=== PATIENT | male | born 1955 | race Caucasian/White ===

== ENCOUNTER 2017-04-17 11:00 | Inpatient (IN) | payer BC ==
[2017-04-17] MEDS ORDERED: DIAZEPAM 5 MG/ML 2 ML SYRINGE IVP STA ×2 (11:03→12:35)
[2017-04-17] MEDS ORDERED: SODIUM CHLORIDE 0.9% 500 ML IV STA (11:03)
[2017-04-17] MEDS ORDERED: ONDANSETRON 4 MG/2 ML VIAL IVP STA (11:03)
--- NOTE | 2017-04-17 11:08 | ED ---
General Adult HPI - General Stated complaint: Poss Stroke Time Seen by Provider: 04/17/17 11:00 Source: RN notes reviewed - History of Present Illness Initial comments: This is a 62-year-old male who presents to the emergency department complaining of driving his car and all of a sudden getting severely dizzy and diaphoretic. When EMS arrived on the scene they thought he had some left-sided facial droop and left-sided director card weakness. That is since resolved. Patient only complaint currently is severe dizziness and sweating. Patient denies any palpitations patient denies any chest pain patient denies difficult breathing [place] of breath. Patient denies any headache per patient denies any numbness weakness. Patient denies abdominal pain patient denies nausea vomiting or diarrhea. Patient denies any recent injury or trauma. - Related Data Home Medications Medication Instructions Recorded Confirmed Aspirin 81 mg PO DAILY 08/29/16 04/17/17 Linagliptin [Tradjenta] 5 mg PO DAILY 08/29/16 04/17/17 Tamsulosin [Flomax] 0.4 mg PO BID 08/29/16 04/17/17 Atorvastatin [Lipitor] 80 mg PO HS 04/17/17 04/17/17 Finasteride [Proscar] 5 mg PO DAILY 04/17/17 04/17/17 Lisinopril [Zestril] 2.5 mg PO DAILY 04/17/17 04/17/17 Prasugrel [Effient] 10 mg PO DAILY 04/17/17 04/17/17 Previous Rx's Medication Instructions Recorded Metoprolol Tartrate [Lopressor] 25 mg PO BID #60 tab 09/03/16 Nitroglycerin Sl Tabs [Nitrostat] 0.4 mg SUBLINGUAL Q5M PRN #25 tab 09/03/16 Allergies Allergy/AdvReac Type Severity Reaction Status Date / Time No Known Allergies Allergy Verified 04/17/17 12:36 Review of Systems ROS Statement: Those systems with pertinent positive or pertinent negative responses have been documented in the HPI. ROS Other: All systems not noted in ROS Statement are negative. Past Medical History Past Medical History: Diabetes Mellitus, Hyperlipidemia, Hypertension History of Any Multi-Drug Resistant Organisms: None Reported Additional Past Surgical History / Comment(s): sewed right middle finger tip Past Anesthesia/Blood Transfusion Reactions: No Reported Reaction Smoking Status: Current every day smoker - Past Family History Mother Family Medical History: Diabetes Mellitus, Hypertension Additional Family Medical History / Comment(s): varicose veins Father Family Medical History: Hyperlipidemia, Hypertension Additional Family Medical History / Comment(s): enlarged heart with leaky valve General Exam - General Exam Comments Initial Comments: GENERAL: Patient is well-developed and well-nourished. Patient is nontoxic and well- hydrated and is in moderate distress. Patient is diaphoretic ENT: Neck is soft and supple. No significant lymphadenopathy is noted. Oropharynx is clear. Moist mucous membranes. Neck has full range of motion without eliciting any pain. EYES: The sclera were anicteric and conjunctiva were pink and moist. Extraocular movements were intact and pupils were equal round and reactive to light. Eyelids were unremarkable. Patient has nystagmus. PULMONARY: Unlabored respirations. Good breath sounds bilaterally. No audible rales rhonchi or wheezing was noted. CARDIOVASCULAR: There is a regular rate and rhythm without any murmurs gallops or rubs. ABDOMEN: Soft and nontender with normal bowel sounds. No palpable organomegaly was noted. There is no palpable pulsatile mass. SKIN: Skin is clear with no lesions or rashes and otherwise unremarkable. NEUROLOGIC: Patient is alert and oriented x3. Cranial nerves II through XII are grossly intact. Motor and sensory are also intact. Normal speech, volume and content. Symmetrical smile. [id number] testing bilaterally is normal. MUSCULOSKELETAL: Normal extremities with adequate strength and full range of motion. No lower extremity swelling or edema. No calf tenderness. LYMPHATICS: No significant lymphadenopathy is noted PSYCHIATRIC: Normal psychiatric evaluation. Normal interpersonal interactions appears functionally intact in deals appropriately with others. No signs of depression. No signs of anxiety. Course Vital Signs 04/17/17 04/17/17 04/17/17 11:02 11:17 11:32 Temperature 98 F Pulse Rate 70 66 66 Respiratory 24 20 20 Rate Blood Pressure 135/82 118/69 135/78 O2 Sat by Pulse 98 98 98 Oximetry 04/17/17 04/17/17 04/17/17 11:47 12:00 13:45 Temperature Pulse Rate 68 65 61 Respiratory 20 20 20 Rate Blood Pressure 132/83 125/73 O2 Sat by Pulse 98 98 100 Oximetry Medical Decision Making - Medical Decision Making EKG shows normal sinus rhythm at 74 bpm MN interval is 170 QRS is 90 QT intervals 468 QTC is 519. Patient's EKG shows no ST segment elevation or depression or T wave abnormalities are noted. I spoke with the neuro interventional states he wanted the patient to received Lipitor 80 aspirin and have a CTA. The neuro interventional stated that this patient was not a TPA candidate CT of the brain showed a possible area of low attenuation within the maria elena and cerebellar peduncle on the right but he also noted could be artifact. CTA showed stenosis of the right internal carotid artery due to plaque nothing on the left and no abnormality seen in the brain. I spoke with the neuro interventional states after this was done and we admitted the patient and consult neurology. - Lab Data Result diagrams: 04/17/17 11:25 04/17/17 11:25 Lab Results 04/17/17 04/17/17 04/17/17 Range/Units 11:04 11:25 11:25 WBC 9.2 (3.8-10.6) k/uL RBC 4.74 (4.30-5.90) m/uL Hgb 14.4 (13.0-17.5) gm/dL Hct 41.1 (39.0-53.0) % MCV 86.6 (80.0-100.0) fL MCH 30.5 (25.0-35.0) pg MCHC 35.2 (31.0-37.0) g/dL RDW 13.1 (11.5-15.5) % Plt Count 343 (150-450) k/uL Neutrophils % 77 % Lymphocytes % 17 % Monocytes % 3 % Eosinophils % 1 % Basophils % 0 % Neutrophils # 7.1 (1.3-7.7) k/uL Lymphocytes # 1.6 (1.0-4.8) k/uL Monocytes # 0.3 (0-1.0) k/uL Eosinophils # 0.1 (0-0.7) k/uL Basophils # 0.0 (0-0.2) k/uL PT (9.0-12.0) sec INR (<1.1) APTT (22.0-30.0) sec Sodium (137-145) mmol/L Potassium (3.5-5.1) mmol/L Chloride (98-107) mmol/L Carbon Dioxide (22-30) mmol/L Anion Gap mmol/L BUN (9-20) mg/dL Creatinine (0.66-1.25) mg/dL Est GFR (MDRD) Af Amer (>60 ml/min/1.73 sqM) Est GFR (MDRD) Non-Af (>60 ml/min/1.73 sqM) Glucose (74-99) mg/dL POC Glucose (mg/dL) 195 H (75-99) mg/dL POC Glu Thermal Spray Operator ID Daniele Anguiano Calcium (8.4-10.2) mg/dL Total Bilirubin (0.2-1.3) mg/dL AST (17-59) U/L ALT (21-72) U/L Alkaline Phosphatase (38-126) U/L Total Creatine Kinase 121 (55-170) U/L CK-MB (CK-2) 2.2 (0.0-2.4) ng/mL CK-MB (CK-2) Rel Index 1.8 Troponin I <0.012 (0.000-0.034) ng/mL Total Protein (6.3-8.2) g/dL Albumin (3.5-5.0) g/dL 04/17/17 04/17/17 Range/Units 11:25 11:25 WBC (3.8-10.6) k/uL RBC (4.30-5.90) m/uL Hgb (13.0-17.5) gm/dL Hct (39.0-53.0) % MCV (80.0-100.0) fL MCH (25.0-35.0) pg MCHC (31.0-37.0) g/dL RDW (11.5-15.5) % Plt Count (150-450) k/uL Neutrophils % % Lymphocytes % % Monocytes % % Eosinophils % % Basophils % % Neutrophils # (1.3-7.7) k/uL Lymphocytes # (1.0-4.8) k/uL Monocytes # (0-1.0) k/uL Eosinophils # (0-0.7) k/uL Basophils # (0-0.2) k/uL PT 11.1 (9.0-12.0) sec INR 1.1 (<1.1) APTT 22.3 (22.0-30.0) sec Sodium 140 (137-145) mmol/L Potassium 3.7 (3.5-5.1) mmol/L Chloride 111 H (98-107) mmol/L Carbon Dioxide 17 L (22-30) mmol/L Anion Gap 12 mmol/L BUN 28 H (9-20) mg/dL Creatinine 1.38 H (0.66-1.25) mg/dL Est GFR (MDRD) Af Amer >60 (>60 ml/min/1.73 sqM) Est GFR (MDRD) Non-Af 52 (>60 ml/min/1.73 sqM) Glucose 213 H (74-99) mg/dL POC Glucose (mg/dL) (75-99) mg/dL POC Glu Thermal Spray Operator ID Calcium 9.5 (8.4-10.2) mg/dL Total Bilirubin 0.8 (0.2-1.3) mg/dL AST 29 (17-59) U/L ALT 38 (21-72) U/L Alkaline Phosphatase 200 H (38-126) U/L Total Creatine Kinase (55-170) U/L CK-MB (CK-2) (0.0-2.4) ng/mL CK-MB (CK-2) Rel Index Troponin I (0.000-0.034) ng/mL Total Protein 7.1 (6.3-8.2) g/dL Albumin 3.7 (3.5-5.0) g/dL Disposition Clinical Impression: CVA (cerebral vascular accident), Vertigo Disposition: ADMITTED IP TO THIS HOSP Referrals: Shahla Kiser DO [Primary Care Provider] - 1-2 days Time of Disposition: 14:36
[2017-04-17 11:14] LABS: Glucose,Whole Blood 195 mg/dL (75-99)
--- NOTE | 2017-04-17 11:32 | CT ---
EXAMINATION TYPE: CT brain wo con for TPA DATE OF EXAM: 04/17/2017 COMPARISON: NONE HISTORY: Extreme dizziness and diaphoretic CT DLP: 1054.2 mGycm Automated exposure control for dose reduction was used. FINDINGS: There is no acute intracranial hemorrhage, mass effect, or midline shift identified. The ventricles and sulci are within normal limits in size. Some low-attenuation is suspected within the brainstem at the level of the right maria elena and possibly cerebral peduncle. Cerebral vascular calcifications are pre sent. White matter demyelination changes are present. The globes are intact and the visualized sinuse s are clear. IMPRESSION: No acute intracranial hemorrhage, mass effect, or midline shift is seen. Possible chronic small vesse l ischemia, age related atrophy Low-attenuation within the maria elena and cerebral peduncle on the right co uld be artifactual, brain MRI could be for better evaluation.
[2017-04-17] MEDS ORDERED: MECLIZINE 25 MG TAB PO STA (11:53)
[2017-04-17 11:55] LABS: Basophils % (A) 0 %; CH 30.4; CHCM 35.2; Eosinophils # (A) 0.1 k/uL (0-0.7); Eosinophils % (A) 1 %; HCT 41.1 % (39.0-53.0); HDW 2.72; HGB 14.4 gm/dL (13.0-17.5); Luc # (Auto) 0.16; Luc % (Auto) 2; Lymphocytes # (A) 1.6 k/uL (1.0-4.8); Lymphocytes % (A) 17 %; MCH 30.5 pg (25.0-35.0); MCHC 35.2 g/dL (31.0-37.0); MCV 86.6 fL (80.0-100.0); Mean Platelet Volume 7.4; Monocytes # (A) 0.3 k/uL (0-1.0); Monocytes % (A) 3 %; Neutrophils # (A) 7.1 k/uL (1.3-7.7); Neutrophils % (A) 77 %; RBC 4.74 m/uL (4.30-5.90); RDW 13.1 % (11.5-15.5); WBC 9.2 k/uL (3.8-10.6); WBC (Perox) 9.52
--- NOTE | 2017-04-17 12:02 | XR ---
EXAMINATION TYPE: XR chest 2V DATE OF EXAM: 04/17/2017 COMPARISON: Prior chest x-ray 08/29/2016 HISTORY: Altered mental status, nausea and vomiting TECHNIQUE: Frontal and lateral views of the chest are obtained on 4 images. FINDINGS: There is no focal air space opacity, pleural effusion, or pneumothorax seen. Prominent louie ng volume could be indicative of COPD. The aorta is dense. The cardiac silhouette size is stable and enlarged. There are overlying cardiac leads. The osseous structures are intact. IMPRESSION: No acute cardiopulmonary process.
[2017-04-17] MEDS ORDERED: ATORVASTATIN 80 MG TAB PO STA (12:05)
[2017-04-17] MEDS ORDERED: ASPIRIN 325 MG TAB PO STA (12:05)
[2017-04-17] MEDS ORDERED: RX INFO: IV CONTRAST WAS GIVEN 1 EACH MISC MISCELLANE PRN (12:05)
[2017-04-17 12:12] LABS: ALT 38 U/L (21-72); AST 29 U/L (17-59); Alkaline Phosphatase 200 U/L (38-126); Anion Gap 12 mmol/L; Blood Urea Nitrogen 28 mg/dL (9-20); Calcium 9.5 mg/dL (8.4-10.2); Carbon Dioxide 17 mmol/L (22-30); Chloride 111 mmol/L (98-107); Creatine Kinase 121 U/L (55-170); Glucose 213 mg/dL (74-99); Non-African American GFR(MDRD) 52 (>60 ml/min/1.73 sqM); Potassium 3.7 mmol/L (3.5-5.1); Sodium 140 mmol/L (137-145); Total Bilirubin 0.8 mg/dL (0.2-1.3); Total Protein 7.1 g/dL (6.3-8.2)
[2017-04-17 12:24] LABS: Creatine Kinase MB 2.2 ng/mL (0.0-2.4); Troponin I <0.012 ng/mL (0.000-0.034)
[2017-04-17 12:25] LABS: INR 1.1 (<1.1); Partial Thromboplastin Time 22.3 sec (22.0-30.0); Prothrombin Time 11.1 sec (9.0-12.0)
[2017-04-17] MEDS ORDERED: METOCLOPRAMIDE 5 MG/ML 2 ML VIAL IVP STA (12:35)
--- NOTE | 2017-04-17 14:24 | CT ---
EXAMINATION TYPE: CT angio head neck DATE OF EXAM: 04/17/2017 1:57 PM COMPARISON: NONE HISTORY: Extreme dizziness CT DLP: 581.2 mGycm Automated exposure control for dose reduction was used. TECHNIQUE: Performed with IV Contrast, patient injected with 65 mL of Visipaque 320. There are 3-D post processed images.. FINDINGS: There is arterial flow in the common internal and external carotid arteries bilaterally. There is art erial flow in both vertebral arteries. Left vertebral artery is larger than the right. There is some plaque formation at the left carotid artery bifurcation with luminal narrowing up to 50% of the proxi mal left internal carotid artery. There is tortuosity of the right internal carotid artery. I see no evidence of hemodynamically significant stenosis on the right side. There is some kinking of the redu ndant right internal carotid artery. There is no evidence of carotid dissection. There is arterial flow in the vertebrobasilar artery system. The basilar artery fills mostly from the left side. There is arterial flow in the anterior middle and posterior cerebral arteries. There is no evidence o f aneurysm or neovascularity. There is normal contrast opacification of the venous sinuses. 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 THERE IS REDUNDANT PROXIMAL RIGHT INTERNAL CAROTID ARTERY WITHOUT EVIDENCE OF SIGNIFICANT STENOS IS. NO ANGIOGRAPHIC ABNORMALITY SEEN WITHIN THE BRAIN.
[2017-04-17] MEDS ORDERED: DIAZEPAM 5 MG/ML 2 ML SYRINGE IVP PRN (14:42)
[2017-04-17] MEDS ORDERED: MECLIZINE 25 MG TAB PO PRN ×3 (14:47→19:58)
[2017-04-17 16:18] VITALS: BMI 38.7
[2017-04-17] MEDS ORDERED: NITROGLYCERIN SL TABS 0.4 MG TAB SUBLINGUAL PRN (16:42)
[2017-04-17] MEDS ORDERED: LORazepam 2 MG/ML SYRINGE IV PRN (16:45)
[2017-04-17] MEDS ORDERED: TEMAZEPAM 15 MG CAP PO PRN (16:48)
[2017-04-17] MEDS ORDERED: HYDROcodone/APAP 5-325MG 1 EACH TAB PO PRN (16:48)
[2017-04-17 17:12] LABS: Glucose,Whole Blood 155 mg/dL (75-99)
[2017-04-17] MEDS: METOCLOPRAMIDE 5 MG/ML 2 ML VIAL IVP SCH (18:51)
--- NOTE | 2017-04-17 19:58 | P.CNNES ---
History of Present Illness Consult date: 04/17/17 Reason for Consult: Patient admitted with severe dizziness and vertigo and possible stroke. History of Present Illness: This patient is a 62-year-old right-handed white male was in his usual state of health early this morning. Patient states he was up this morning and it checked his blood sugar this morning and was noted to be 135. He is a diabetic and normally takes his medications for treatment of this condition. Patient was feeling fine this morning and decided to go with his to visit a state park. He was driving at the time and apparently suddenly developed severe vertigo and dizziness. He became severely diaphoretic. He was able to pull off of the road and fortunately his was there. She used her cell phone and called for EMS. When EMS arrived they saw the patient is having significant diaphoresis and questionable left-sided facial droop. He was brought into the emergency room where he was seen in the ER by Dr. Borja. He did not appear to have any facial droop at the time. He was sent for an immediate computed tomography scan of the brain which was reported to be negative for any acute stroke or hemorrhage. There was an area of low attenuation in the maria elena and the cerebral peduncle suggesting possibility of stroke. MRI of the brain was recommended. Patient also underwent a CTA angiogram which revealed a long segment of 50% stenosis of the proximal left internal carotid artery. The patient was evaluated in the ER by the neuro interventional group at [facility]. The neuro interventional is suggested to start the patient on Lipitor 80 mg with aspirin. The neuro interventional is did not recommend tPA for this candidate. They had reviewed this CT of the brain as well as a CTA angiogram results. They recommended admission to the hospital for further management. The patient states that he does have a history of motion sickness as a child. He has never had this acute vertigo however at any recent time. He states that the whole world seems to spin around him. He becomes nauseated and did vomit at least 3 times in route to the emergency room. As noted his computed tomography scan reveals a questionable area in the maria elena and he is scheduled for MRI of the brain tomorrow for further evaluation. The patient states he is still very much nauseated. Any quick movements of the head will cause him to become more symptomatic with dizziness. He is noted on examination at his bedside today as having horizontal nystagmus to the left. His clinical history suggests possibility of severe acute labyrinthitis which will need further evaluation. The patient states that he was recently diagnosed with diabetes about 6 months ago. He also had to have a cardiac stent placement about 6 months ago and is taking Effient on a regular basis for this stent. During this episode of diaphoresis today he did not experience any chest pain or angina. He has no previous history of TIA or stroke. He is now been admitted and neurology has been consulted for further evaluation and recommendations. Review of Systems Constitutional: Reports sweats, Denies chills, Denies fever Eyes: denies blurred vision, denies pain Ears, nose, mouth and throat: Reports vertigo, Denies headache, Denies sore throat Cardiovascular: Denies chest pain, Denies shortness of breath Respiratory: Denies cough Gastrointestinal: Denies abdominal pain, Denies diarrhea, Denies nausea, Denies vomiting Musculoskeletal: Denies myalgias Integumentary: Denies pruritus, Denies rash Neurological: Reports balance difficulties, Reports gait dysfunction, Reports vertigo, Denies numbness, Denies weakness Psychiatric: Denies anxiety, Denies depression Endocrine: Denies fatigue, Denies weight change Past Medical History Past Medical History: Diabetes Mellitus, Hyperlipidemia, Hypertension, Prostate Disorder, Renal Disease, Sleep Apnea/CPAP/BIPAP History of Any Multi-Drug Resistant Organisms: None Reported Past Surgical History: Heart Catheterization With Stent Additional Past Surgical History / Comment(s): sewed right middle finger tip Past Anesthesia/Blood Transfusion Reactions: No Reported Reaction Date of Last Stent Placement:: 09-02-16 Past Psychological History: No Psychological Hx Reported Smoking Status: Former smoker Past Alcohol Use History: None Reported Past Drug Use History: None Reported - Past Family History Mother Family Medical History: Diabetes Mellitus, Hypertension Additional Family Medical History / Comment(s): varicose veins Father Family Medical History: Hyperlipidemia, Hypertension Additional Family Medical History / Comment(s): enlarged heart with leaky valve Medications and Allergies Home Medications Medication Instructions Recorded Confirmed Type Aspirin 81 mg PO DAILY 08/29/16 04/17/17 History Linagliptin [Tradjenta] 5 mg PO DAILY 08/29/16 04/17/17 History Tamsulosin [Flomax] 0.4 mg PO BID 08/29/16 04/17/17 History Atorvastatin [Lipitor] 80 mg PO HS 04/17/17 04/17/17 History Finasteride [Proscar] 5 mg PO DAILY 04/17/17 04/17/17 History Lisinopril [Zestril] 2.5 mg PO DAILY 04/17/17 04/17/17 History Prasugrel [Effient] 10 mg PO DAILY 04/17/17 04/17/17 History Allergies Allergy/AdvReac Type Severity Reaction Status Date / Time No Known Allergies Allergy Verified 04/17/17 12:36 Physical Examination - Vital Signs Vital Signs: Vital Signs Temp Pulse Pulse Resp BP BP Pulse Ox 04/17/17 16:06 98.9 F 70 20 163/89 99 04/17/17 16:00 70 18 04/17/17 15:54 98.2 F 70 20 163/89 99 04/17/17 15:15 97.8 F 70 20 160/78 98 04/17/17 14:00 70 20 133/70 98 04/17/17 13:45 61 20 100 04/17/17 13:00 68 20 136/68 98 04/17/17 12:00 65 20 125/73 98 04/17/17 11:47 68 20 132/83 98 04/17/17 11:32 66 20 135/78 98 04/17/17 11:17 98 F 66 20 118/69 98 04/17/17 11:02 70 24 135/82 98 Intake and Output 04/17/17 04/17/17 04/17/17 06:59 14:59 22:59 Output Total 20 Balance -20 Output: Emesis 20 Other: Voiding Method Indwelling Catheter Weight 124.738 kg 126 kg Patient Weight 04/18/17 06:59 Weight 126 kg - Constitutional General appearance: average body habitus, cooperative - EENT EENT: PERRL, mucous membranes moist - Respiratory Respiratory: lungs clear, normal breath sounds - Cardiovascular Cardiovascular: regular rate, normal S1, normal S2 Extremities: no peripheral edema bilaterally - Gastrointestinal Gastrointestinal: normoactive bowel sounds - Integumentary Integumentary: normal - Neurologic Cranial nerve examination: anosmic, PERRL, EOMI, VFF, nystagmus (Patient has rapid horizontal left beating nystagmus on gaze testing.), face symmetric, tongue midline, intact gag reflex, intact corneal reflex, normal palatal elevation Speech examination: intact Sensorimotor examination: intact Detailed motor examination: grossly full strength in all extremities Motor examination - right side: 5/5: biceps, triceps, wrist flexion, wrist extension, horseshoer, hip flexors, knee extensors, dorsiflexion, toe extension (EHL) , plantarflexion Motor examination - left side: 5/5: biceps, triceps, wrist flexion, wrist extension, horseshoer, hip flexors, knee extensors, dorsiflexion, toe extension (EHL) , plantarflexion Detailed sensory examination: intact Reflex and gait examination: intact Reflexes: 1+: ankle, bicep, knee, tricep Cerebellar examination: nystagmus - Musculoskeletal Musculoskeletal: no pain - Psychiatric Psychiatric: mood/affect appropriate, cooperative Results - Laboratory Findings CBC and BMP: 04/17/17 11:25 04/17/17 11:25 Abnormal Lab Findings: Abnormal Labs 04/17/17 04/17/17 04/17/17 11:04 11:25 17:07 Chloride 111 H Carbon Dioxide 17 L BUN 28 H Creatinine 1.38 H Glucose 213 H POC Glucose (mg/dL) 195 H 155 H Alkaline Phosphatase 200 H Assessment and Plan (1) Acute ischemic VBA brainstem stroke Status: Acute Code(s): I63.219 - CEREB INFRC DUE TO UNSP OCCLS OR STENOSIS OF UNSP VERTEB ART; I63.22 - CEREBRAL INFRC DUE TO UNSP OCCLS OR STENOSIS OF BASILAR ART (2) Acute labyrinthitis Status: Acute Code(s): H83.09 - LABYRINTHITIS, UNSPECIFIED EAR (3) Presence of stent in coronary artery in patient with coronary artery disease Status: Acute Code(s): I25.10 - ATHSCL HEART DISEASE OF [place] CORONARY ARTERY W/O ANG PCTRS; Z95.5 - PRESENCE OF CORONARY ANGIOPLASTY IMPLANT AND GRAFT (4) HTN (hypertension) Status: Acute Code(s): I10 - ESSENTIAL (PRIMARY) HYPERTENSION Plan: This patient is a 62-year-old male who was driving his car early this morning and developed sudden onset of severe vertigo and dizziness. He was able to pull his car off the road. His immediately called for EMS. He threw up 3 times in route to the ER. In the ER he was noted to be diaphoretic and was sent for a computed tomography scan of the brain followed by CTA angiogram of the head and neck. He was evaluated in the ER by Dr. Borja. The neuro interventional specialist at [facility] was notified on the stroke robotic. Review of his studies and his history by the neuro interventional was done and they deemed him not to be a candidate for TPA. No thrombolytics were recommended. He was started on Lipitor 80 mg plus aspirin and admitted to the hospital. The patient is seen today on the medical floor. He is on selective care. He is still symptomatic with dizziness which can be triggered by his movement of his head. He still feels quite nauseated and is been given IV Reglan. His neurological examination reveals strong horizontal left beating nystagmus. We would recommend to consider possibility of acute labyrinthitis as well as brainstem ischemia given the abnormal computed tomography scan reading. The patient is scheduled for MRI of the brain tomorrow and we will await those results. The patient may benefit from low-dose Antivert to see if this minimizes some of his acute symptoms. ENT has been consulted tonight and we will await their recommendations. Patient's overall prognosis at this time remains guarded. He does not have evidence of left facial weakness or focal motor weakness on examination at this time. His history still could be consistent with brainstem ischemia. As noted we have recommended a complete stroke evaluation including MRI of the brain. His overall prognosis at this time remains guarded. Time with Patient: Greater than 30
[2017-04-17 20:34] LABS: Glucose,Whole Blood 158 mg/dL (75-99)
[2017-04-17] MEDS: PANTOPRAZOLE 40 MG/10 ML VIAL IVP SCH (20:37)
[2017-04-17] MEDS: METOPROLOL TARTRATE 25 MG TAB PO SCH (20:37)
[2017-04-17] MEDS: TAMSULOSIN 0.4 MG CAP.ER.24H PO SCH (20:37)
[2017-04-17 22:39] LABS: Appearance,Urine Turbid (Clear); Bacteria,Urine Many /hpf; Bilirubin,Urine Negative (Negative); Glucose,Urine (UA) Trace (Negative); Ketones,Urine Negative (Negative); Leukocyte Esterase,Urine Large (Negative); Nitrite,Urine Positive (Negative); Particle Count 46140; Protein,Urine 1+ (Negative); RBC,Urine 107 /hpf (0-5); UA Billing (MACRO vs. MICRO) MICRO; Urobilinogen,Urine <2.0 mg/dL (<2.0); WBC,Urine >182 /hpf (0-5)
[2017-04-18] MEDS: METOCLOPRAMIDE 5 MG/ML 2 ML VIAL IVP SCH ×5 (00:02→23:15)
[2017-04-18 05:51] LABS: Basophils % (A) 0 %; CH 30.2; CHCM 32.8; Eosinophils % (A) 0 %; HCT 44.5 % (39.0-53.0); HDW 2.47; HGB 14.3 gm/dL (13.0-17.5); Luc # (Auto) 0.26; Luc % (Auto) 2; Lymphocytes # (A) 1.3 k/uL (1.0-4.8); Lymphocytes % (A) 11 %; MCH 29.6 pg (25.0-35.0); Mean Platelet Volume 7.5; Monocytes # (A) 0.7 k/uL (0-1.0); Monocytes % (A) 6 %; Neutrophils % (A) 80 %; RBC 4.81 m/uL (4.30-5.90); RDW 13.6 % (11.5-15.5); WBC 11.3 k/uL (3.8-10.6); WBC (Perox) 10.78
[2017-04-18 05:54] LABS: MCV 92.5 fL (80.0-100.0)
[2017-04-18 06:00] LABS: Anion Gap 11 mmol/L; Blood Urea Nitrogen 22 mg/dL (9-20); Calcium 9.1 mg/dL (8.4-10.2); Carbon Dioxide 22 mmol/L (22-30); Chloride 110 mmol/L (98-107); Cholesterol 127 mg/dL (<200); Glucose 117 mg/dL (74-99); HDL Cholesterol 39 mg/dL (40-60); Non-African American GFR(MDRD) 55 (>60 ml/min/1.73 sqM); Potassium 4.1 mmol/L (3.5-5.1); Sodium 143 mmol/L (137-145); Triglycerides 127 mg/dL (<150)
[2017-04-18 06:12] LABS: Glucose,Whole Blood 105 mg/dL (75-99)
[2017-04-18] MEDS: PANTOPRAZOLE 40 MG/10 ML VIAL IVP SCH ×2 (08:16→21:35)
[2017-04-18] MEDS: METOPROLOL TARTRATE 25 MG TAB PO SCH ×2 (08:16→21:35)
[2017-04-18] MEDS: TAMSULOSIN 0.4 MG CAP.ER.24H PO SCH ×2 (08:16→21:35)
[2017-04-18] MEDS: ASPIRIN 325 MG TAB PO SCH (08:16)
[2017-04-18] MEDS: FINASTERIDE 5 MG TAB PO SCH (08:16)
[2017-04-18] MEDS: LISINOPRIL 2.5 MG TAB PO SCH (08:16)
[2017-04-18] MEDS: PRASUGREL 10 MG TAB PO SCH (08:16)
[2017-04-18] MEDS: LINAGLIPTIN 5 MG TABLET PO SCH (08:17)
--- NOTE | 2017-04-18 08:47 | HP ---
DATE OF ADMISSION: CHIEF COMPLAINT: Dizziness and weakness and possible stroke. HISTORY OF PRESENT ILLNESS: This 62-year-old gentleman with a past medical history of multiple medical problems including diabetes mellitus type 2, hypertension, hyperlipidemia, history of degenerative joint disease, history of sleep apnea associated symptoms, being followed by Dr. Nicholson in the outpatient setting. 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 The CT scan showed only chronic small vessel ischemia. CT angiogram was also done, which showed long segment 50% stenosis of proximal left internal carotid artery due to plaque formation. The patient admitted for further evaluation and treatment. Even minimal movement is precipitating significant nausea according the patient who is keeping the eyes closed at this time. There is no history of any fever, rigors. No history of any chest pain, palpitations, hematochezia, melena at this time. PAST MEDICAL HISTORY: History of diabetes mellitus type 2, hypertension, hyperlipidemia, history of prostate disorder, obstructive sleep apnea, history of coronary artery disease and stent. Medications prior to admission include: 1. Effient 10 mg p.o. daily. 2. Lipitor 80 mg. 3. Flomax 0.4 daily. 4. Nitrostat 0.4 sublingual. 5. Lopressor 25 mg b.i.d. 6. Zestril 2.5 daily. 7. Proscar 5 mg daily. 8. Tradjenta 5 mg daily. 9. Aspirin 81 mg. ALLERGIES: None. FAMILY HISTORY: History of diabetes, hypertension, varicose veins in the family. SOCIAL HISTORY: No history of smoking currently. Previous history of smoking. No history of alcohol. REVIEW OF SYSTEMS: ENT: As mentioned earlier. CARDIOVASCULAR: As mentioned earlier. RESPIRATORY: No cough. GI: As mentioned. : No dysuria. NERVOUS SYSTEM: Mentioned earlier. ALLERGY/IMMUNOLOGY: No asthma or hayfever. MUSCULOSKELETAL: As mentioned earlier. HEMATOLOGY: No history of anemia. ENDOCRINE: No history of diabetes or hypothyroidism. CONSTITUTIONAL: As mentioned earlier. DERMATOLOGY: Negative. RHEUMATOLOGY: Negative. PSYCHIATRY: As mentioned earlier. PHYSICAL EXAMINATION: Patient is alert and oriented x3. Pulse 70, blood pressure 160/89, respirations 20, temperature 98.4, pulse ox 99% on 2 liters. HEENT: Conjunctivae normal. Oral mucosa moist. NECK: No jugular venous distention. No carotid bruit. No lymph node enlargement. CARDIOVASCULAR: S1 and S2. No S3, no S4. RESPIRATORY: Breath sounds diminished at the bases. A few scattered rhonchi, no crackles. ABDOMEN: Soft, obese, nontender. No mass palpable. LEGS: No edema. NERVOUS SYSTEM: Higher function as mentioned earlier. Cranial nerves: significant nystagmus in both eyes without any preference present. Otherwise no diplopia. No vision impairment per se. Otherwise moves all four limbs. No focal motor sensory deficits. No cerebellar dysfunction. Gait not tested. No sensory abnormality. JOINTS: No active deforming arthropathy. SKIN: No ulcer, rash or bleeding. LYMPHATIC: No lymphadenopathy in the neck, axillae or groin. ASSESSMENT: 1. Severe vertigo and dizziness possibly secondary to acute brainstem stroke. 2. Rule out benign positional vertigo, acute exacerbation. 3. Increased creatinine with chronic kidney disease stage III. 4. Diabetes mellitus type 2. 5. Obesity with body mass index of 38.9. 6. Hypertension, essential. 7. Hyperlipidemia. 8. History of benign prostatic hypertrophy. 9. History of sleep apnea. 10. History of coronary artery disease and stent. 11. Remote history of nicotine dependence. 12. FULL CODE. RECOMMENDATIONS AND DISCUSSION: This 62-year-old gentleman who presented with multiple medical problems, will monitor the patient closely. I would recommend a full neurovascular work-up including 2-D echo and carotid Doppler. Otherwise, would also recommend a cardiology and neurology consultation. Resume the home medications. Symptomatic treatment and antiplatelet agents. ENT consultation also may be sought. The prognosis is guarded because of multiple complex medical issues. Further recommendations to follow. Discussed at length with the patient who understands. Copy of dictation forwarded to Dr. Nicholson who is the primary physician. Will check the lipid panel also. See orders for further details. We will recommend IV Ativan also as well as symptomatic treatment with proton pump inhibitors. See orders for further details. Discussed with the family. Discussed with staff. Further recommendations to follow. MTDD
[2017-04-18] MEDS ORDERED: ASPIRIN 81 MG CHEW PO SCH (09:00)
--- NOTE | 2017-04-18 11:58 | MR ---
MRI brain with and without contrast HISTORY: Cerebrovascular accident Patient received 20 cc MultiHance IV, multiplanar multisequence and postcontrast images obtained thro [facility] the brain. Correlation to prior brain CT 04/17/2017 There is no restricted diffusion. Corpus callosum, pituitary, cervical medullary junction, cerebellop ontine angles are normal. Scattered hyperintensities are present within the deep white matter on inve rsion recovery and T2-weighted sequences, there are approximately 5 lesions. Increased signal also no saira within the maria elena on T2 and inversion recovery weighted sequence. Cerebral peduncle right greater than left as noted on CT shows some fluid signal which may be due to some local encephalomalacia. The re are normal vascular flow voids. Orbits show symmetric appearance. No abnormal enhancement followin g contrast administration. IMPRESSION: Nonspecific white matter demyelination likely due to chronic small vessel ischemia.
--- NOTE | 2017-04-18 12:12 | US ---
EXAMINATION TYPE: US carotid duplex BILAT DATE OF EXAM: 04/18/2017 COMPARISON: CLINICAL HISTORY: Stenosis. intense dizziness, nausea, no weakness, diabetic EXAM MEASUREMENTS: RIGHT: Peak Systolic Velocity (PSV) cm/sec ----- Right CCA: 72.4 ----- Right ICA: 54.9 ----- Right ECA: 94.0 ICA/CCA ratio: 0.8 RIGHT: End Diastole cm/sec ----- Right CCA: 16.4 ----- Right ICA: 21.7 ----- Right ECA: 13.7 LEFT: Peak Systolic Velocity (PSV) cm/sec ----- Left CCA: 82.0 ----- Left ICA: 64.4 ----- Left ECA: 109.5 ICA/CCA ratio: 0.8 LEFT: End Diastole cm/sec ----- Left CCA: 20.4 ----- Left ICA: 27.0 ----- Left ECA: 21.5 VERTEBRALS (direction of flow): Right Vertebral: Antegrade Left Vertebral: Antegrade No significant stenosis, elevated velocities or wall thickening. Small amount on plaque seen in ante rior bilateral bulbs. IMPRESSION: 1. Minimal atheromatous plaquing without significant flow-limiting stenosis. Criteria for Assigning % of Stenosis / Diameter reduction (Estimation based on the indirect measurements of the internal carotid artery velocities (ICA PSV). 1. Normal (no stenosis)=ICA PSV < 125 cm/s: ratio < 2.0: ICA EDV<40 cm/s. 2. Less than 50% stenosis=ICA PSV < 125 cm/s: ratio < 2.0: ICA EDV<40 cm/s. 3. 50 to 69% stenosis=ICA PSV of 125 to 230 cm/s: ration 2.0 ? 4.0: ICA EDV 40-100 cm/s. 4. Greater than 70% stenosis to near occlusion= ICA PSV > 230 cm/s: ratio > 4.0: ICA EDV > 100 cm/s. 5. Near occlusion= ICA PSV velocities may be low or undetectable: variable ratio and ICA EDV. 6. Total occlusion=unable to detect flow.
[2017-04-18 12:21] LABS: Glucose,Whole Blood 121 mg/dL (75-99)
--- NOTE | 2017-04-18 12:54 | CONS ---
DATE OF CONSULTATION: CHIEF COMPLAINT: Dizziness. Mr. Grissom is a 62-year-old gentleman with history of coronary artery disease, status post angioplasty, sleep apnea who presented to the hospital having had an episode of dizziness. He describes it as a severe sudden onset dizziness and vertigo associated with nausea and vomiting. Cardiology had been consulted because of cardiac history. He denies any chest pain. Does not have any focal neurological deficits. Had a CTA that showed moderate carotid stenosis. An MRI had been done and he is to have an EEG also. An echocardiogram is pending at this time. At the time of my evaluation, he is feeling somewhat better. The dizziness has improved. Patient's clinical presentation seemed to be related more to the dizziness and vertigo and does not seem to be any cardiac issue at this time. He has had one set of troponin that is negative. EKG does not reveal acute ischemic changes. Past medical history is significant for CAD, status post angioplasty, hypertension, dyslipidemia. Medications include Effient 10 q. day, Lipitor 80 q. daily, Flomax, sublingual nitroglycerin, Lopressor 25 b.i.d., lisinopril 2.5 q. daily, Proscar, insulin and aspirin. ALLERGIES: There are no known drug allergies. Family history is negative for premature coronary artery disease. Social history is negative for current smoking, EtOH abuse or drug abuse. REVIEW OF SYSTEMS: HEENT: Unremarkable. CARDIAC: As described above. RESPIRATORY: Negative. GI: Negative. GENITOURINARY: Negative. ALLERGY/IMMUNOLOGY: Negative. MUSCULOSKELETAL: Significant for arthritis. PSYCHOSOCIAL: Negative. ENDOCRINE: Negative. DERMATOLOGIC: Negative. CONSTITUTIONAL: Negative. ONCOLOGICAL: Negative. The rest of the system review is not relevant. On exam, patient is comfortable at rest. Vital signs are stable. There is no jugular venous distention. Carotid upstroke is normal. There is no bruit. Chest exam reveals good air entry bilaterally. Heart exam reveals first and second heart sounds. No gallop. No murmur. Abdomen is soft, nontender. Exam of extremities did not reveal edema. Peripheral pulses are felt. Labs show that the hemoglobin is 14.3. Creatinine is 1.33. LDL cholesterol is 63. ASSESSMENT: 1. Dizziness and vertigo, noncardiac in origin. 2. Coronary artery disease, status post angioplasty. 3. Hypertension. 4. Dyslipidemia. PLAN: Patient is feeling somewhat better. Reviewed the workup so far including MRI of the brain, carotid duplex, CTA and chest x-rays. I will review the echocardiogram once the results are available.
[2017-04-18 16:55] LABS: Glucose,Whole Blood 128 mg/dL (75-99)
--- NOTE | 2017-04-18 19:28 | P.PN ---
Subjective This patient is a 62 year old male admitted for acute intractable vertigo. The patient initial evaluation yesterday revealed him to have significant left beating horizontal nystagmus on exam. Today he is free of any nystagmus on examination. He was given Antivert earlier today and responded very well. We are still awaiting HEENT consultation and evaluation for this patient. Patient was sent for MRI of the brain today for further assessment of possible brainstem stroke. MRI was completed and reveals nonspecific white matter change with no evidence of acute stroke on diffusion-weighted imaging. We did review the results of the MRI today with the patient. We are recommending that he should be placed on Antivert 25 mg by mouth twice a day as scheduled dosing rather than when necessary. He would benefit to continue on this for 3-4 weeks and we can reevaluate him in the outpatient setting. Patient states he is feeling much better today. He has not had any severe nausea vomiting symptoms. His overall prognosis at this time remains guarded. Objective - Vital Signs Vital signs: Vital Signs Temp 98.0 F 04/18/17 16:00 Pulse 69 04/18/17 16:00 Resp 16 04/18/17 16:00 BP 105/67 04/18/17 16:00 Pulse Ox 99 04/18/17 16:00 Intake & Output 04/17/17 04/18/17 04/18/17 18:59 06:59 18:59 Intake Total 60 420 Output Total 20 1999 550 Balance - -130 Weight 126 kg 122 kg Intake: Intake, IV Titration 50 Amount cefTRIAXone 1,000 mg In 50 Sodium Chloride 0.9% 50 ml @ 100 mls/hr IVPB Q24HR [facility] Rx#:[id number] Oral 60 370 Output: Urine 1999 550 Emesis 20 Other: Voiding Method Indwelling Catheter Indwelling Catheter Indwelling Catheter - Exam Physical Examination: PHYSICAL EXAMINATION: Patient is resting comfortably in bed. VITAL SIGNS: Blood pressure is [105/67]. Heart rate is [69]. Respiration is [16] . Temperature is [98.0]. HEENT: Head is atraumatic, neck is supple, there were no carotid bruits. CHEST: Lungs are clear to auscultation and percussion. CARDIAC: S1, S2 normal rate and rhythm. There is no murmur. ABDOMEN: Soft and nontender. Bowel sounds are present. EXTREMITIES: There is no pedal edema. Peripheral pulses are present. Neurological examination: Patient has a nonfocal neurological examination today. He has no evidence of any horizontal nystagmus on gaze testing today. - Labs CBC & Chem 7: 04/18/17 05:24 04/18/17 05:24 Labs: Abnormal Lab Results - Last 24 Hours (Table) 04/17/17 04/17/17 04/18/17 Range/Units 20:31 22:24 05:24 WBC (3.8-10.6) k/uL Neutrophils # (1.3-7.7) k/uL Chloride 110 H (98-107) mmol/L BUN 22 H (9-20) mg/dL Creatinine 1.33 H (0.66-1.25) mg/dL Glucose 117 H (74-99) mg/dL POC Glucose (mg/dL) 158 H (75-99) mg/dL HDL Cholesterol 39 L (40-60) mg/dL Urine Protein 1+ H (Negative) Urine Glucose (UA) Trace H (Negative) Urine Blood Moderate H (Negative) Ur Leukocyte Esterase Large H (Negative) Urine RBC 107 H (0-5) /hpf Urine WBC >182 H (0-5) /hpf Urine WBC Clumps Many H (None) /hpf Urine Bacteria Many H (None) /hpf U Benzodiazepines Scrn Detected H (NotDetected) 04/18/17 04/18/17 04/18/17 Range/Units 05:24 06:04 12:06 WBC 11.3 H (3.8-10.6) k/uL Neutrophils # 9.0 H (1.3-7.7) k/uL Chloride (98-107) mmol/L BUN (9-20) mg/dL Creatinine (0.66-1.25) mg/dL Glucose (74-99) mg/dL POC Glucose (mg/dL) 105 H 121 H (75-99) mg/dL HDL Cholesterol (40-60) mg/dL Urine Protein (Negative) Urine Glucose (UA) (Negative) Urine Blood (Negative) Ur Leukocyte Esterase (Negative) Urine RBC (0-5) /hpf Urine WBC (0-5) /hpf Urine WBC Clumps (None) /hpf Urine Bacteria (None) /hpf U Benzodiazepines Scrn (NotDetected) 05/30/17 Range/Units 16:47 WBC (3.8-10.6) k/uL Neutrophils # (1.3-7.7) k/uL Chloride (98-107) mmol/L BUN (9-20) mg/dL Creatinine (0.66-1.25) mg/dL Glucose (74-99) mg/dL POC Glucose (mg/dL) 128 H (75-99) mg/dL HDL Cholesterol (40-60) mg/dL Urine Protein (Negative) Urine Glucose (UA) (Negative) Urine Blood (Negative) Ur Leukocyte Esterase (Negative) Urine RBC (0-5) /hpf Urine WBC (0-5) /hpf Urine WBC Clumps (None) /hpf Urine Bacteria (None) /hpf U Benzodiazepines Scrn (NotDetected) Assessment and Plan (1) Acute ischemic VBA brainstem stroke Status: Acute Code(s): I63.219 - CEREB INFRC DUE TO UNSP OCCLS OR STENOSIS OF UNSP VERTEB ART; I63.22 - CEREBRAL INFRC DUE TO UNSP OCCLS OR STENOSIS OF BASILAR ART (2) Acute labyrinthitis Status: Acute Code(s): H83.09 - LABYRINTHITIS, UNSPECIFIED EAR (3) Presence of stent in coronary artery in patient with coronary artery disease Status: Acute Code(s): I25.10 - ATHSCL HEART DISEASE OF [place] CORONARY ARTERY W/O ANG PCTRS; Z95.5 - PRESENCE OF CORONARY ANGIOPLASTY IMPLANT AND GRAFT (4) HTN (hypertension) Status: Acute Code(s): I10 - ESSENTIAL (PRIMARY) HYPERTENSION Plan: This patient is a 62-year-old male who was admitted with acute vertigo and loss of balance. Patient was felt to have evidence suggesting acute labyrinthitis yesterday on neurological examination. He was sent for MRI of the brain today to rule out brainstem ischemia. MRI was completed the results of which are noted above. MRI is negative for any brainstem stroke. Patient has responded well to Antivert. We are recommending to keep him on scheduled dose of Antivert 25 mg by mouth twice a day. He may continue with this medication and can be followed up in the outpatient neurology clinic in 3-4 weeks. We've reviewed the results of the MRI today with the patient in detail. He is feeling much better and hopefully will be able to be discharged home in the next 24 hours. His overall prognosis at this time remains fair.
--- NOTE | 2017-04-18 19:46 | P.GSCN ---
History of Present Illness Consult date: 04/18/17 Reason for Consult: Severe and sudden dizziness Requesting physician: Amparo Ochoa History of present illness: This is a 62-year-old white male who presents to the hospital with severe and sudden dizziness. This patient tells me that around 7:30 yesterday morning he was at [employer] eating her breakfast burritos 2. He then drove to [facility] and was making a right turn on [address] when he suffered a severe and sudden onset of vertigo. He had diaphoresis and inability to walk and severe and disabling nausea and vomiting. He was taken to the emergency room here for evaluation and has had a neurologic workup. He was unable to walk into the hospital. He has some facial weakness initially but had resolved. He is still having difficulty time walking. He denies any tick bites. He denies migraines. He does get carsick easy. He is a retired [employer] worker and denies any chemical exposures recently etc. denies any head trauma etc. his dizziness is persistent but somewhat better. He denies any otologic symptoms such as hearing loss, ear fullness, pressure, tenderness etc. I did review the results of the MRI scan showing some localized encephalomalacia of the right cerebral peduncle. Cerebral vascular accident is suspect. Review of Systems - Constitutional Reports fatigue, Reports lethargy, Denies anorexia - EENT Eyes: denies loss of vision Ears: deny: decreased hearing, ear discharge, earache, tinnitus Ears, nose, mouth and throat: Reports vertigo, Denies ant. neck pain, Denies bleeding gums, Denies dental pain, Denies odynophagia, Denies voice changes - Cardiovascular Reports high blood pressure, Denies edema - Respiratory Reports sleep apnea, Denies cough with sputum - Gastrointestinal Denies abdominal pain - Genitourinary Denies discharge - Musculoskeletal Denies arm numbness/tingling, Denies atrophy - Integumentary Denies brittle nails, Denies change in hair/nails - Neurological Reports ataxia, Reports balance difficulties, Reports vertigo, Reports weakness - Psychiatric Denies anxiety attacks - Endocrine Denies proptosis - Hematologic/Lymphatic Denies easy bleeding - Allergic/Immunologic Denies allergic rhinitis, Denies anaphylaxis Past Medical History Past Medical History: Diabetes Mellitus, Hyperlipidemia, Hypertension, Prostate Disorder, Renal Disease, Sleep Apnea/CPAP/BIPAP History of Any Multi-Drug Resistant Organisms: None Reported Past Surgical History: Heart Catheterization With Stent Additional Past Surgical History / Comment(s): sewed right middle finger tip Past Anesthesia/Blood Transfusion Reactions: No Reported Reaction Date of Last Stent Placement:: 09-02-16 Past Psychological History: No Psychological Hx Reported Smoking Status: Former smoker Past Alcohol Use History: None Reported Past Drug Use History: None Reported - Past Family History Mother Family Medical History: Diabetes Mellitus, Hypertension Additional Family Medical History / Comment(s): varicose veins Father Family Medical History: Hyperlipidemia, Hypertension Additional Family Medical History / Comment(s): enlarged heart with leaky valve Medications and Allergies Home Medications Medication Instructions Recorded Confirmed Type Aspirin 81 mg PO DAILY 08/29/16 04/17/17 History Linagliptin [Tradjenta] 5 mg PO DAILY 08/29/16 04/17/17 History Tamsulosin [Flomax] 0.4 mg PO BID 08/29/16 04/17/17 History Atorvastatin [Lipitor] 80 mg PO HS 04/17/17 04/17/17 History Finasteride [Proscar] 5 mg PO DAILY 04/17/17 04/17/17 History Lisinopril [Zestril] 2.5 mg PO DAILY 04/17/17 04/17/17 History Prasugrel [Effient] 10 mg PO DAILY 04/17/17 04/17/17 History Allergies Allergy/AdvReac Type Severity Reaction Status Date / Time No Known Allergies Allergy Verified 04/17/17 12:36 Surgical - Exam Osteopathic Statement: *. No significant issues noted on an osteopathic structural exam other than those noted in the History and Physical/Consult. Vital Signs Pulse Resp BP Pulse Ox 70 24 135/82 98 04/17/17 11:02 04/17/17 11:02 04/17/17 11:02 04/17/17 11:02 - General obese - Eyes Nystagmus is noted rotatory PERRL - ENT Patient is unable to walk and false to the right. Unable to do true [place]. Patient has an equivocal Colton-Hallpike with the right ear under most. normal pinna, normal nares, normal mucosa, no congestion, no decreased hearing - Neck no masses, no lymphadectomy - Integumentary no rash, no growths - Psychiatric oriented to time, oriented to person, oriented to place, speech is normal Results - Labs 04/18/17 05:24 04/18/17 05:24 Abnormal Lab Results - Last 24 Hours (Table) 04/17/17 04/17/17 04/18/17 Range/Units 20:31 22:24 05:24 WBC (3.8-10.6) k/uL Neutrophils # (1.3-7.7) k/uL Chloride 110 H (98-107) mmol/L BUN 22 H (9-20) mg/dL Creatinine 1.33 H (0.66-1.25) mg/dL Glucose 117 H (74-99) mg/dL POC Glucose (mg/dL) 158 H (75-99) mg/dL HDL Cholesterol 39 L (40-60) mg/dL Urine Protein 1+ H (Negative) Urine Glucose (UA) Trace H (Negative) Urine Blood Moderate H (Negative) Ur Leukocyte Esterase Large H (Negative) Urine RBC 107 H (0-5) /hpf Urine WBC >182 H (0-5) /hpf Urine WBC Clumps Many H (None) /hpf Urine Bacteria Many H (None) /hpf U Benzodiazepines Scrn Detected H (NotDetected) 04/18/17 04/18/17 04/18/17 Range/Units 05:24 06:04 12:06 WBC 11.3 H (3.8-10.6) k/uL Neutrophils # 9.0 H (1.3-7.7) k/uL Chloride (98-107) mmol/L BUN (9-20) mg/dL Creatinine (0.66-1.25) mg/dL Glucose (74-99) mg/dL POC Glucose (mg/dL) 105 H 121 H (75-99) mg/dL HDL Cholesterol (40-60) mg/dL Urine Protein (Negative) Urine Glucose (UA) (Negative) Urine Blood (Negative) Ur Leukocyte Esterase (Negative) Urine RBC (0-5) /hpf Urine WBC (0-5) /hpf Urine WBC Clumps (None) /hpf Urine Bacteria (None) /hpf U Benzodiazepines Scrn (NotDetected) 04/18/17 Range/Units 16:47 WBC (3.8-10.6) k/uL Neutrophils # (1.3-7.7) k/uL Chloride (98-107) mmol/L BUN (9-20) mg/dL Creatinine (0.66-1.25) mg/dL Glucose (74-99) mg/dL POC Glucose (mg/dL) 128 H (75-99) mg/dL HDL Cholesterol (40-60) mg/dL Urine Protein (Negative) Urine Glucose (UA) (Negative) Urine Blood (Negative) Ur Leukocyte Esterase (Negative) Urine RBC (0-5) /hpf Urine WBC (0-5) /hpf Urine WBC Clumps (None) /hpf Urine Bacteria (None) /hpf U Benzodiazepines Scrn (NotDetected) Microbiology - Last 24 Hours (Table) 04/18/17 13:30 Urine Culture - Preliminary Urine,Catheterized Diabetes panel 04/18/17 Range/Units 05:24 Sodium 143 (137-145) mmol/L Potassium 4.1 (3.5-5.1) mmol/L Chloride 110 H (98-107) mmol/L Carbon Dioxide 22 (22-30) mmol/L BUN 22 H (9-20) mg/dL Creatinine 1.33 H (0.66-1.25) mg/dL Glucose 117 H (74-99) mg/dL Calcium 9.1 (8.4-10.2) mg/dL Triglycerides 127 (<150) mg/dL HDL Cholesterol 39 L (40-60) mg/dL Calcium panel 04/18/17 Range/Units 05:24 Calcium 9.1 (8.4-10.2) mg/dL Pituitary panel 04/18/17 Range/Units 05:24 Sodium 143 (137-145) mmol/L Potassium 4.1 (3.5-5.1) mmol/L Chloride 110 H (98-107) mmol/L Carbon Dioxide 22 (22-30) mmol/L BUN 22 H (9-20) mg/dL Creatinine 1.33 H (0.66-1.25) mg/dL Glucose 117 H (74-99) mg/dL Calcium 9.1 (8.4-10.2) mg/dL Adrenal panel 04/18/17 Range/Units 05:24 Sodium 143 (137-145) mmol/L Potassium 4.1 (3.5-5.1) mmol/L Chloride 110 H (98-107) mmol/L Carbon Dioxide 22 (22-30) mmol/L BUN 22 H (9-20) mg/dL Creatinine 1.33 H (0.66-1.25) mg/dL Glucose 117 H (74-99) mg/dL Calcium 9.1 (8.4-10.2) mg/dL Assessment and Plan (1) CVA (cerebral vascular accident) Status: Acute Plan: This patient has some localized encephalomalacia of the right cerebral peduncle and his symptoms appear to be right-sided. A cerebral vascular accident to that area is the most likely etiology of this patient's symptomatology. This may be an old finding and a right-sided vestibular neuronitis is also suspect. The fact that he was unable to walk into the emergency room and still has an inability to walk makes a cerebral vascular accident a more likely diagnosis. I 'm recommending an electronystagmogram and I most interested in the cold and warm calorics. If the calorics are normal and most likely this is a cerebral vascular accident of the cerebellar peduncle on the right side. Neuro checks are needed and I will write for the electronystagmogram with special attention to the caloric testing. Further recommendations will be made once the caloric tests are performed. Time with Patient: Greater than 30
[2017-04-18] MEDS ORDERED: MECLIZINE 25 MG TAB PO SCH (21:00)
[2017-04-18 21:10] LABS: Glucose,Whole Blood 119 mg/dL (75-99)
[2017-04-18] MEDS: ATORVASTATIN 80 MG TAB PO SCH (21:35)
--- NOTE | 2017-04-18 23:23 | PN ---
DATE OF SERVICE: 04/18/2017 This 62-year-old gentleman who was admitted with significant vertigo is being evaluated for stroke at this time. Neurology is following the patient as well as Cardiology. MRI showed nonspecific white matter demyelination, likely chronic small vessel ischemia. No chest pain. No palpitation. No fever. The dizziness is slightly better. Carotid Doppler showed minimal atheromatous plaquing without any significant stenosis. No chest pain. No palpitation. No fever. On exam, alert and oriented x3. Pulse 69, blood pressure 105/61, respiration 16, temperature 98 degrees, pulse ox 99% on 2 L. HEENT: Conjunctivae normal. NECK: No jugular venous distention. CARDIOVASCULAR SYSTEM: S1, S2 muffled. RESPIRATORY SYSTEM: Breath sounds diminished at the bases. No rhonchi. No crackles. ABDOMEN: Soft, non-tender. No mass palpable. LEGS: No edema. No swelling. NERVOUS SYSTEM: Higher functions as mentioned earlier. nystagmus of both eyes present; the intensity has diminished today. No diplopia. Moves all 4 limbs. No focal motor or sensory deficit. No cerebellar signs. LABS: WBC 11.3. Glucose 117. The creatinine is 1.33. ASSESSMENT: 1. Severe vertigo, dizziness, possibly secondary to acute brainstem transient ischemic attack or labyrinthitis or BPV. 2. MRI showing small vessel ischemic changes or demyelination. 3. Increased creatinine with chronic kidney disease, stage III. 4. Diabetes mellitus, type 2. 5. Obesity with body mass index of 38.9. 6. Hypertension, essential. 7. Hyperlipidemia. 8. History of benign prostatic hypertrophy. 9. History of sleep apnea. 10. Gait dysfunction. 11. History of coronary artery disease, stent. 12. Remote history of nicotine dependence. 13. FULL CODE. RECOMMENDATIONS AND DISCUSSION: At this time I recommend to continue with the current medications, continue with symptomatic treatment, continue with Antivert. I would also recommend anti-plate agents and ENT consultations. Otherwise, Neurology to evaluate the MRI. Prognosis guarded because of multiple complex medical issues. Further recommendations to follow. MTDD
[2017-04-19 05:44] LABS: Glucose,Whole Blood 107 mg/dL (75-99)
[2017-04-19] MEDS: METOCLOPRAMIDE 5 MG/ML 2 ML VIAL IVP SCH ×4 (05:50→23:54)
--- NOTE | 2017-04-19 05:58 | EEG ---
DATE OF SERVICE: 04/18/2017 INDICATIONS FOR EXAMINATION: This patient is a 62-year-old male admitted with intractable vertigo and possible brain stem ischemia. AGE: 62Y EEG FINDINGS: A routine 21-channel, awake digital EEG recording was accomplished utilizing the 10 to 20 international system with bipolar and referential montages. The background activity in the most alert resting state consists of a low to medium amplitude, fairly well-developed and well-sustained 7 to 8 Hz activity over the posterior head regions. This posterior rhythm attenuates to eye opening. There is a small amount of low amplitude 18 to 20 Hz beta activity seen maximally over the anterior head regions. Muscle and movement artifact was observed on a few occasions during the tracing. Hyperventilation was not performed. Photic stimulation at flash frequencies of 2 to 30 Hz produced a minimal occipital driving response. No epileptiform discharges were seen. IMPRESSION: This EEG is within normal limits for the patient's age. The EEG failed to reveal any focal, lateralized or epileptiform abnormalities. Clinical correlation is recommended.
[2017-04-19 06:06] LABS: Basophils % (A) 0 %; CH 29.9; CHCM 32.8; Eosinophils # (A) 0.1 k/uL (0-0.7); Eosinophils % (A) 1 %; HCT 41.7 % (39.0-53.0); HDW 2.51; HGB 13.6 gm/dL (13.0-17.5); Luc # (Auto) 0.19; Luc % (Auto) 2; Lymphocytes # (A) 1.7 k/uL (1.0-4.8); Lymphocytes % (A) 21 %; MCHC 32.7 g/dL (31.0-37.0); MCV 91.8 fL (80.0-100.0); Mean Platelet Volume 7.6; Monocytes # (A) 0.4 k/uL (0-1.0); Monocytes % (A) 5 %; Neutrophils # (A) 5.6 k/uL (1.3-7.7); Neutrophils % (A) 70 %; RBC 4.54 m/uL (4.30-5.90); RDW 13.6 % (11.5-15.5); WBC 7.9 k/uL (3.8-10.6); WBC (Perox) 7.84
[2017-04-19 06:17] LABS: Anion Gap 7 mmol/L; Blood Urea Nitrogen 20 mg/dL (9-20); Carbon Dioxide 25 mmol/L (22-30); Chloride 110 mmol/L (98-107); Glucose 110 mg/dL (74-99); Non-African American GFR(MDRD) 50 (>60 ml/min/1.73 sqM); Sodium 142 mmol/L (137-145)
[2017-04-19] MEDS: METOPROLOL TARTRATE 25 MG TAB PO SCH ×2 (08:54→21:46)
[2017-04-19] MEDS: PRASUGREL 10 MG TAB PO SCH (08:54)
[2017-04-19] MEDS: TAMSULOSIN 0.4 MG CAP.ER.24H PO SCH ×2 (08:54→21:46)
[2017-04-19] MEDS: PANTOPRAZOLE 40 MG/10 ML VIAL IVP SCH ×2 (08:54→21:46)
[2017-04-19] MEDS: ASPIRIN 325 MG TAB PO SCH (08:54)
[2017-04-19] MEDS: FINASTERIDE 5 MG TAB PO SCH (08:54)
[2017-04-19] MEDS: LINAGLIPTIN 5 MG TABLET PO SCH (08:54)
--- NOTE | 2017-04-19 10:14 | ECHOF ---
Referral Reason:Stroke MEASUREMENTS -------- HEIGHT: 180.3 cm WEIGHT: 121.6 kg BP: 119/78 IVSd: 0.8 cm (0.6 - 1.1) LVIDd: 4.2 cm (3.9 - 5.3) LVPWd: 0.7 cm (0.6 - 1.1) IVSs: 1.5 cm LVIDs: 2.0 cm LVPWs: 1.2 cm LAESV Index (A-L): 16.12 ml/m Ao Diam: 2.7 cm (2.0 - 3.7) AV Cusp: 0.9 cm (1.5 - 2.6) LA Diam: 3.8 cm (2.7 - 3.8) MV E Flako: 0.71 m/s MV DecT: 254 ms MV A Flako: 0.75 m/s MV E/A Ratio: 0.94 RAP: 5.00 mmHg RVSP: 11.42 mmHg FINDINGS -------- Sinus rhythm. This was a technically difficult study with suboptimal views. LV size, wall thickness and systolic function are normal, with an EF greater than 55%. Overall left ventricular systolic function is normal with, an EF between 55 - 60 %. The right ventricle is normal in size and function. Normal LA size by volume 22+/-6 ml/m2. The right atrium was not well visualized. 1.5mg of Definity was utilized for enhancement of images The aortic valve is trileaflet, and appears structurally normal. No aortic stenosis or regurgitation. The mitral valve leaflets are mildly thickened. There is trace mitral regurgitation. Trace tricuspid regurgitation present. There is no evidence of pulmonary hypertension. The right ventricular systolic pressure, as measured by Doppler, is 11.42mmHg. The pulmonic valve was not well visualized. The aortic root size is normal. IVC Not well visulized. The pulmonary veins were not recorded. The pericardium is normal. There is no pericardial effusion. CONCLUSIONS -------- 1. Sinus rhythm. 2. Trace tricuspid regurgitation present. 3. There is no evidence of pulmonary hypertension. 4. The right ventricular systolic pressure, as measured by Doppler, is 11.42mmHg. 5. The pulmonic valve was not well visualized. 6. The aortic root size is normal. 7. IVC Not well visulized. 8. The pulmonary veins were not recorded. 9. There is no pericardial effusion. 10. This was a technically difficult study with suboptimal views. 11. Overall left ventricular systolic function is normal with, an EF between 55 - 60 %. 12. Normal LA size by volume 22+/-6 ml/m2. 13. The right atrium was not well visualized. 14. 1.5mg of Definity was utilized for enhancement of images 15. The aortic valve is trileaflet, and appears structurally normal. No aortic stenosis or regurgitation. 16. The mitral valve leaflets are mildly thickened. 17. There is trace mitral regurgitation. BOWLING BALL MOLDER: Tyron Denis RDCS
--- NOTE | 2017-04-19 11:16 | P.PN ---
Subjective Principal diagnosis: Dizziness This is a 62-year-old gentleman with known history of coronary artery disease and prior angioplasty, hypertension, hyperlipidemia, sleep apnea, who presented to the hospital with symptoms of dizziness. A cardiology consultation was initially requested because of the patient's significant cardiac history. He had a CTA performed which revealed moderate carotid stenosis, MRI revealed nonspecific white matter demyelination. Carotid Doppler study revealed minimal atheromatous plaque. Echocardiogram with Doppler study revealed normal left ventricular systolic function. Patient was seen and examined this morning, denies any further dizziness. Complained of mild nausea earlier this morning. Hemodynamically stable. No arrhythmias noted on the monitor. Objective - Vital Signs Vital signs: Vital Signs Temp 96.1 F L 04/19/17 08:00 Pulse 81 04/19/17 08:00 Resp 18 04/19/17 08:00 BP 101/67 04/19/17 08:00 Pulse Ox 97 04/19/17 08:00 Intake & Output 04/18/17 04/19/17 04/19/17 18:59 06:59 18:59 Intake Total 740 480 240 Output Total 550 1250 Balance 190 -770 240 Weight 109.5 kg Intake: Intake, IV Titration 50 Amount cefTRIAXone 1,000 mg In 50 Sodium Chloride 0.9% 50 ml @ 100 mls/hr IVPB Q24HR [facility] Rx#:[id number] Oral 690 480 240 Output: Urine 550 1250 Other: Voiding Method Indwelling Catheter Indwelling Catheter Indwelling Catheter # Voids 1 - Exam PHYSICAL EXAMINATION: HEENT: Head is atraumatic, normocephalic. Pupils equal, round. Neck is supple. There is no elevated jugular venous pressure. HEART EXAMINATION: Heart S1, S2 normal. No murmur or gallop heard. CHEST EXAMINATION: Lungs are clear to auscultation and precussion. No chest wall tenderness is noted on palpation or with deep breathing. ABDOMEN: Soft, obese, nontender. Bowel sounds are heard. No organomegaly noted. EXTREMITIES: 2+ peripheral pulses with no evidence of peripheral edema and no calf tenderness noted. NEUROLOGIC patient is awake, alert and oriented -3. . - Labs CBC & Chem 7: 04/19/17 05:38 04/19/17 05:38 Labs: Abnormal Lab Results - Last 24 Hours (Table) 04/18/17 04/18/17 04/18/17 Range/Units 12:06 16:47 21:08 Chloride (98-107) mmol/L Creatinine (0.66-1.25) mg/dL Glucose (74-99) mg/dL POC Glucose (mg/dL) 121 H 128 H 119 H (75-99) mg/dL 04/19/17 04/19/17 Range/Units 05:38 05:43 Chloride 110 H (98-107) mmol/L Creatinine 1.44 H (0.66-1.25) mg/dL Glucose 110 H (74-99) mg/dL POC Glucose (mg/dL) 107 H (75-99) mg/dL Microbiology - Last 24 Hours (Table) 04/18/17 13:30 Urine Culture - Preliminary Urine,Catheterized Assessment and Plan (1) Dizziness Status: Acute (2) Vertigo Status: Acute (3) Chronic kidney disease Status: Acute (4) Diabetes Status: Acute (5) HTN (hypertension) Status: Acute (6) CAD (coronary artery disease) Status: Acute (7) Sleep apnea Status: Acute Plan: From cardiology's perspective, no further workup needed. Echo reveals normal left ventricular systolic function, no evidence of any arrhythmias on the monitor. Doing well from cardiology standpoint. We may DC the telemetry. Upon discharge, we will make the patient a follow-up appointment with Dr. Albarado in 6 weeks. DNP note has been reviewed, I agree with a documented findings and plan of care. Patient was seen and examined.
[2017-04-19] MEDS: LISINOPRIL 2.5 MG TAB PO SCH (11:42)
[2017-04-19 17:07] LABS: Glucose,Whole Blood 117 mg/dL (75-99)
--- NOTE | 2017-04-19 18:31 | P.PN ---
Subjective This patient is a 62 year old male admitted for acute intractable vertigo. The patient initial evaluation yesterday revealed him to have significant left beating horizontal nystagmus on exam. Today he is free of any nystagmus on examination. He was given Antivert earlier today and responded very well. We are still awaiting ENT consultation and evaluation for this patient. The patient was seen by ENT and they agree with possibility of right vestibular neuronitis as a cause of his symptoms. There was some concern regarding his MRI findings suggesting encephalomalacia. We have reviewed the MRI films and these are all findings of old areas of ischemia. This would not explain his acute symptoms with which he presented to the ER. Diffusion-weighted imaging of the brain failed to reveal any evidence of acute stroke. Patient was sent for MRI of the brain today for further assessment of possible brainstem stroke. MRI was completed and reveals nonspecific white matter change with no evidence of acute stroke on diffusion-weighted imaging. We did review the results of the MRI today with the patient. We are recommending that he should be placed on Antivert 25 mg by mouth twice a day as scheduled dosing rather than when necessary. He would benefit to continue on this for 3-4 weeks and we can reevaluate him in the outpatient setting. Patient is currently being treated by his civil engineering assistant and is currently on a anticoagulant for stent placement. He did develop a slight nosebleed today which should be monitored. The patient is neurologically stable for discharge home later today and should follow-up in the outpatient neurology clinic in 3-4 weeks. We recommend that he be maintained on Antivert at the time of discharge. Patient states he is feeling much better today. His overall prognosis at this time remains guarded. Objective - Vital Signs Vital signs: Vital Signs Temp 96.3 F L 04/19/17 16:00 Pulse 74 04/19/17 16:00 Resp 18 04/19/17 16:00 BP 117/82 04/19/17 16:00 Pulse Ox 94 L 04/19/17 16:00 Intake & Output 04/18/17 04/19/17 04/19/17 18:59 06:59 18:59 Intake Total 740 480 530 Output Total 550 1250 1000 Balance 190 -770 -470 Weight 109.5 kg Intake: Intake, IV Titration 50 50 Amount cefTRIAXone 1,000 mg In 50 50 Sodium Chloride 0.9% 50 ml @ 100 mls/hr IVPB Q24HR [facility] Rx#:[id number] Oral 690 480 480 Output: Urine 550 1250 1000 Other: Voiding Method Indwelling Catheter Indwelling Catheter Indwelling Catheter # Voids 1 - Exam Physical Examination: PHYSICAL EXAMINATION: Patient is resting comfortably in bed. VITAL SIGNS: Blood pressure is [117/82]. Heart rate is [74]. Respiration is [18] . Temperature is [97.0]. HEENT: Head is atraumatic, neck is supple, there were no carotid bruits. CHEST: Lungs are clear to auscultation and percussion. CARDIAC: S1, S2 normal rate and rhythm. There is no murmur. ABDOMEN: Soft and nontender. Bowel sounds are present. EXTREMITIES: There is no pedal edema. Peripheral pulses are present. Neurological examination: Patient has a nonfocal neurological examination today. He has no evidence of any horizontal nystagmus on gaze testing today. - Labs CBC & Chem 7: 04/19/17 05:38 04/19/17 05:38 Labs: Abnormal Lab Results - Last 24 Hours (Table) 04/18/17 04/19/17 04/19/17 Range/Units 21:08 05:38 05:43 Chloride 110 H (98-107) mmol/L Creatinine 1.44 H (0.66-1.25) mg/dL Glucose 110 H (74-99) mg/dL POC Glucose (mg/dL) 119 H 107 H (75-99) mg/dL 04/19/17 Range/Units 16:58 Chloride (98-107) mmol/L Creatinine (0.66-1.25) mg/dL Glucose (74-99) mg/dL POC Glucose (mg/dL) 117 H (75-99) mg/dL Microbiology - Last 24 Hours (Table) 04/18/17 13:30 Urine Culture - Preliminary Urine,Catheterized Gram Neg Bacilli 04/18/17 12:07 Blood Culture - Preliminary Blood No Growth after 24 hours Assessment and Plan (1) Acute ischemic VBA brainstem stroke Status: Acute Code(s): I63.219 - CEREB INFRC DUE TO UNSP OCCLS OR STENOSIS OF UNSP VERTEB ART; I63.22 - CEREBRAL INFRC DUE TO UNSP OCCLS OR STENOSIS OF BASILAR ART (2) Acute labyrinthitis Status: Acute Code(s): H83.09 - LABYRINTHITIS, UNSPECIFIED EAR (3) Presence of stent in coronary artery in patient with coronary artery disease Status: Acute Code(s): I25.10 - ATHSCL HEART DISEASE OF [place] CORONARY ARTERY W/O ANG PCTRS; Z95.5 - PRESENCE OF CORONARY ANGIOPLASTY IMPLANT AND GRAFT (4) HTN (hypertension) Status: Acute Code(s): I10 - ESSENTIAL (PRIMARY) HYPERTENSION Plan: This patient is a 62-year-old male who was admitted to Hospital with symptoms of acute onset of vertigo and nystagmus. He was evaluated initially in the emergency room and underwent a computed tomography scan of the brain which was reported negative. He suffers was admitted to hospital and had findings suggesting acute vestibular neuronitis as a cause of his symptoms. We did have him undergo a MRI of the brain which failed to reveal any evidence of acute brainstem stroke. There was some areas of encephalomalacia noted. Patient responded well to Antivert and should continue on the same for treatment of vestibular neuronitis. We've reviewed the MRI results today with the patient. He will continue on Antivert and will schedule for a follow-up appointment in the outpatient neurology clinic in 3-4 weeks. So overall prognosis at this time remains guarded.
--- NOTE | 2017-04-19 20:53 | PN ---
SUBJECTIVE DATA AND HOSPITAL COURSE: This is a 62-year-old gentleman with history of CAD, dyslipidemia, obstructive sleep apnea. He comes into the hospital with acute onset symptoms of dizziness that started the day of his admission. Patient stated that his symptoms were persistent over the last 48 hours. Patient underwent extensive workup, including a carotid study, an echocardiogram and MRI which showed some white matter nonspecific demyelination. Today patient is seen in followup; appears to state that he is improved. Symptoms have disappeared. There is no recurrence of symptoms with change in position. He stated that he felt that his eyes were rolling on initial evaluation with change in head movements. The patient today denies having any headaches, change in vision, nausea, vomiting, abdominal pain or diarrhea. OBJECTIVE DATA: VITALS: Temperature 96.1, heart rate 81, respiratory rate 18, blood pressure 101/67. Saturating 97% on room air. GENERALLY: Patient appears to be alert, oriented x3. HEENT: The pupils are equal and reactive to light and accommodation. HEART: S1, S2 present. No murmur appreciated. LUNGS: Good air entry. No wheezing or rhonchi noted. ABDOMINAL EXAM: Soft, nontender, no organomegaly appreciated. GENITOURINARY: Jaquez in place. EXTREMITIES: Pulses can be palpated distally. Denies any tenderness on gross palpation. SKIN: On a gross skin exam does not appear to have any purpura or any skin rashes that were noted. NEUROLOGICALLY: Grossly cranial nerves 2-12 intact. No motor or sensory deficits noted. Laboratory data include hemoglobin 13.6, hematocrit 41.7, white count of 7.9, platelets of 287; sodium 142, potassium 4, chloride 110, bicarb 25, BUN 20, creatinine 1.44. ASSESSMENT AND PLAN: 1. Peripheral vertigo, likely secondary to neuronitis associated with some degree of nystagmus as well which is horizontal from the description. 2. Chronic kidney disease, stage III. 3. Diabetes. 4. Hypertension. 5. Benign prostatic hypertrophy. 6. Coronary artery disease. 7. Obstructive sleep apnea. PLAN: Will continue the patient on Antivert. This appears to be a peripheral etiology. Patient encouraged to ambulate. Continue Jaquez catheter until discharge. Patient uses intermittent Jaquez catheterization due to significant BPH. The patient appears to be stable and can be discharged home. ENT recommendations in regards to obtaining a study can be done as an outpatient. This was discussed with the patient. Rapid improvement in symptoms also points towards a peripheral etiology. Will follow.
[2017-04-19 21:20] LABS: Glucose,Whole Blood 114 mg/dL (75-99)
[2017-04-19] MEDS: MECLIZINE 25 MG TAB PO SCH (21:46)
[2017-04-19] MEDS: ATORVASTATIN 80 MG TAB PO SCH (21:46)
[2017-04-20 05:51] LABS: Glucose,Whole Blood 100 mg/dL (75-99)
[2017-04-20 06:39] LABS: Basophils % (A) 0 %; CH 30.2; CHCM 33.5; Eosinophils # (A) 0.1 k/uL (0-0.7); Eosinophils % (A) 1 %; HCT 44.5 % (39.0-53.0); HDW 2.54; HGB 14.4 gm/dL (13.0-17.5); Luc # (Auto) 0.15; Luc % (Auto) 2; Lymphocytes # (A) 1.5 k/uL (1.0-4.8); Lymphocytes % (A) 19 %; MCH 29.3 pg (25.0-35.0); MCHC 32.5 g/dL (31.0-37.0); MCV 90.4 fL (80.0-100.0); Mean Platelet Volume 7.3; Monocytes # (A) 0.4 k/uL (0-1.0); Monocytes % (A) 5 %; Neutrophils # (A) 5.8 k/uL (1.3-7.7); Neutrophils % (A) 72 %; RBC 4.92 m/uL (4.30-5.90); RDW 13.4 % (11.5-15.5); WBC 7.9 k/uL (3.8-10.6); WBC (Perox) 7.98
[2017-04-20] MEDS: METOCLOPRAMIDE 5 MG/ML 2 ML VIAL IVP SCH ×2 (06:46→13:15)
[2017-04-20 06:54] LABS: Anion Gap 9 mmol/L; Blood Urea Nitrogen 20 mg/dL (9-20); Calcium 9.1 mg/dL (8.4-10.2); Carbon Dioxide 24 mmol/L (22-30); Chloride 106 mmol/L (98-107); Glucose 114 mg/dL (74-99); Non-African American GFR(MDRD) 50 (>60 ml/min/1.73 sqM); Sodium 139 mmol/L (137-145)
[2017-04-20] MEDS: LISINOPRIL 2.5 MG TAB PO SCH (08:10)
[2017-04-20] MEDS: MECLIZINE 25 MG TAB PO SCH (08:11)
[2017-04-20] MEDS: ASPIRIN 325 MG TAB PO SCH (08:11)
[2017-04-20] MEDS: PRASUGREL 10 MG TAB PO SCH (08:11)
[2017-04-20] MEDS: TAMSULOSIN 0.4 MG CAP.ER.24H PO SCH (08:11)
[2017-04-20] MEDS: METOPROLOL TARTRATE 25 MG TAB PO SCH (08:11)
[2017-04-20] MEDS: FINASTERIDE 5 MG TAB PO SCH (08:11)
[2017-04-20] MEDS: LINAGLIPTIN 5 MG TABLET PO SCH (08:11)
[2017-04-20] MEDS: PANTOPRAZOLE 40 MG/10 ML VIAL IVP SCH (08:15)
[2017-04-20 11:46] LABS: Glucose,Whole Blood 96 mg/dL (75-99)
[2017-04-20 12:23] VITALS: BP 138/86; PULSE 84; RESP 18; TEMP 98.8
--- NOTE | 2017-04-20 18:15 | P.DS ---
Providers Date of admission: 04/17/17 14:36 Attending physician: Amparo Ochoa Consults: 04/17/17 14:37 Consult Physician Routine Consulting Provider: Talon Weston Consult Reason/Comments: CVA, vertigo Do you want consulting provider notified?: Yes 04/17/17 16:49 Consult Physician Routine Consulting Provider: Migel Prasad Consult Reason/Comments: history of stent Do you want consulting provider notified?: Yes 04/17/17 16:51 Consult Physician Routine Consulting Provider: Conrado Patrick Consult Reason/Comments: dizziness and vertigo Do you want consulting provider notified?: Yes Primary care physician: Shahla Ceronarlo Hospital Course: HOSPITAL COURSE: This is a 62-year-old gentleman with history of CAD, dyslipidemia, obstructive sleep apnea. He comes into the hospital with acute onset symptoms of dizziness that started the day of his admission. Patient stated that his symptoms were persistent over the last 48 hours. Patient underwent extensive workup, including a carotid study, an echocardiogram and MRI which showed some white matter nonspecific demyelination. Today patient is seen in followup; appears to state that he is improved. Symptoms have disappeared. There is no recurrence of symptoms with change in position. He stated that he felt that his eyes were rolling on initial evaluation with change in head movements. The patient today denies having any headaches, change in vision, nausea, vomiting, abdominal pain or diarrhea. 04/20/17 givens was discontinued pt ambulated without difficulty OBJECTIVE DATA: VITALS: Temperature 96.1, heart rate 81, respiratory rate 18, blood pressure 101/67. Saturating 97% on room air. GENERALLY: Patient appears to be alert, oriented x3. HEENT: The pupils are equal and reactive to light and accommodation. HEART: S1, S2 present. No murmur appreciated. LUNGS: Good air entry. No wheezing or rhonchi noted. ABDOMINAL EXAM: Soft, nontender, no organomegaly appreciated. GENITOURINARY: Givens in place. EXTREMITIES: Pulses can be palpated distally. Denies any tenderness on gross palpation. SKIN: On a gross skin exam does not appear to have any purpura or any skin rashes that were noted. NEUROLOGICALLY: Grossly cranial nerves 2-12 intact. No motor or sensory deficits noted. ASSESSMENT AND PLAN: 1. Peripheral vertigo, likely secondary to neuronitis associated with some degree of nystagmus as well which is horizontal from the description. 2. Chronic kidney disease, stage III. 3. Diabetes. 4. Hypertension. 5. Benign prostatic hypertrophy. 6. Coronary artery disease. 7. Obstructive sleep apnea. dc home on valium prn and antiver Plan - Discharge Summary New Discharge Prescriptions: New Diazepam [Valium] 5 mg PO BID PRN #6 tab PRN Reason: Motion Sickness RX: Meclizine [Antivert] 25 mg PO BID #30 tab Continue RX: Tamsulosin [Flomax] 0.4 mg PO BID RX: Linagliptin [Tradjenta] 5 mg PO DAILY RX: Aspirin 81 mg PO DAILY RX: Metoprolol Tartrate [Lopressor] 25 mg PO BID #60 tab RX: Nitroglycerin Sl Tabs [Nitrostat] 0.4 mg SUBLINGUAL Q5M PRN #25 tab PRN Reason: Chest Pain RX: Prasugrel [Effient] 10 mg PO DAILY RX: Lisinopril [Zestril] 2.5 mg PO DAILY RX: Finasteride [Proscar] 5 mg PO DAILY RX: Atorvastatin [Lipitor] 80 mg PO HS Discharge Medication List RX: Aspirin 81 mg PO DAILY 08/29/16 [History] RX: Linagliptin [Tradjenta] 5 mg PO DAILY 08/29/16 [History] RX: Tamsulosin [Flomax] 0.4 mg PO BID 08/29/16 [History] RX: Metoprolol Tartrate [Lopressor] 25 mg PO BID #60 tab 09/03/16 [Rx] RX: Nitroglycerin Sl Tabs [Nitrostat] 0.4 mg SUBLINGUAL Q5M PRN #25 tab [Rx] RX: Atorvastatin [Lipitor] 80 mg PO HS 04/17/17 [History] RX: Finasteride [Proscar] 5 mg PO DAILY 04/17/17 [History] RX: Lisinopril [Zestril] 2.5 mg PO DAILY 04/17/17 [History] RX: Prasugrel [Effient] 10 mg PO DAILY 04/17/17 [History] Diazepam [Valium] 5 mg PO BID PRN #6 tab 04/20/17 [Rx] RX: Meclizine [Antivert] 25 mg PO BID #30 tab 04/20/17 [Rx] Follow up Appointment(s)/Referral(s): Talon Weston MD [STAFF PHYSICIAN] - 3 Weeks (the office will contact patient for follow up apt.) Conrado Patrick DO [Doctor of Osteopathic Medicine] - 1 Week (patient to contact physicians' office for follow up.) Shahla Kiser DO [Primary Care Provider] - 04/25/17 9:00 am (APT made.) Miguel Albarado MD [STAFF PHYSICIAN] - 6 Weeks (office will contact patient for follow up APT.) Discharge Disposition: HOME SELF-CARE
--- NOTE | 2017-04-20 23:28 | PN ---
DATE OF SERVICE: 04/20/2017 CHIEF COMPLAINT: Recheck. HISTORY OF PRESENT ILLNESS: Mr. Grissom is doing better today. He still has ataxia. He is unable to walk without assistance or with a walker, but he is doing better. His balance is improving. I was unable to get caloric testing, as the collection technician/therapist was unable to do this on an inpatient basis; they need to do this on an outpatient basis. Nevertheless, we will schedule this at a later date. He is doing well. This is an apparent cerebellar peduncle stroke, i.e., infarct, and tight control of his lipids is needed along with anticoagulant therapy. I do not see any signs of any vestibular abnormality, and the patient should follow up with Neurology and his family physician, Dr. Kiser. PHYSICAL EXAMINATION: Vital signs are stable. Patient is afebrile. HEAD AND FACE: Head is normocephalic. The face is symmetric. EYES: Unremarkable. EARS: The auricles are well-formed. NOSE: Patent. MOUTH AND THROAT: No oral lesions are seen. Neck is unremarkable. Vestibular examination shows ataxia. IMPRESSION: Ataxia, dizziness secondary to cerebrovascular accident, i.e., right cerebral peduncle. PLAN OF TREATMENT: Our goal of cholesterol of under 150 is recommended. Tight control through his family physician will be performed. He is to follow up with his family physician, Dr. Kiser, on an outpatient basis along with neurologist. Patient should follow up with me on an as-needed basis only. This is not a vestibular abnormality. This is a cerebrovascular issue. Again, tight lipid control, lifestyle changes, anticoagulant therapy, etc. were recommended; again, all to be done through his primary care physician and neurologist. Thank you very much for allowing me to participate in the care of this patient. I will no longer be following this patient. Please re-consult me if the need arises.
== END 2017-04-20 15:15 | disposition home or self-care (01) | DRG 149 ==
LOC: EC 11:00 → 6SEL 14:36
PROVIDERS: ADMIT Internal Medicine; ATTEND Internal Medicine
DX: H81.21 Vestibular neuronitis, right ear (principal); E11.22 Type 2 diabetes mellitus with diabetic chronic kidney disease; N18.3 Chronic kidney disease, stage 3 (moderate); I25.10 Atherosclerotic heart disease of native coronary artery without angina pectoris; I12.9 Hypertensive chronic kidney disease with stage 1 through stage 4 chronic kidney disease, or unspecified chronic kidney disease; H81.399 Other peripheral vertigo, unspecified ear; H83.09 Labyrinthitis, unspecified ear; I67.9 Cerebrovascular disease, unspecified; I65.22 Occlusion and stenosis of left carotid artery; H55.09 Other forms of nystagmus; E78.5 Hyperlipidemia, unspecified; G47.33 Obstructive sleep apnea (adult) (pediatric); R29.810 Facial weakness; N40.0 Benign prostatic hyperplasia without lower urinary tract symptoms; R27.0 Ataxia, unspecified; E11.9 Type 2 diabetes mellitus without complications; E66.9 Obesity, unspecified; R61 Generalized hyperhidrosis; M19.90 Unspecified osteoarthritis, unspecified site; Z68.38 Body mass index [BMI] 38.0-38.9, adult; Z82.49 Family history of ischemic heart disease and other diseases of the circulatory system; Z83.3 Family history of diabetes mellitus; Z79.84 Long term (current) use of oral hypoglycemic drugs; Z95.5 Presence of coronary angioplasty implant and graft; Z87.891 Personal history of nicotine dependence; Z79.899 Other long term (current) drug therapy; Z79.82 Long term (current) use of aspirin; Z87.828 Personal history of other (healed) physical injury and trauma; Z79.01 Long term (current) use of anticoagulants
CPT/HCPCS: 36415; 70450; 70496; 70498; 70553; 71020; 80048; 80053; 80061; 80306; 81001; 82550; 82553; 84443; 84484; 85025; 85610; 85730; 86618; 87040; 87077; 87086; 87186; 93005; 93306; 93880; 95819

== ENCOUNTER → 2017-12-01 | Outpatient (CLI) | payer BC ==
--- NOTE | 2017-12-01 12:57 | US ---
EXAMINATION TYPE: US scrotum with doppler. Grayscale and color Doppler Duplex imaging performed of t he scrotum. DATE OF EXAM: 12/01/2017 COMPARISON: NONE CLINICAL HISTORY: N50.811 testicular pain and swelling rt side. Pain and edema right testicle for 2 w eeks EXAM MEASUREMENTS: TESTICLES: Right Testicle: 5.2 x 2.8 x 2.9 cm Left Testicle: 5.0 x 2.3 x 3.7 cm EPIDIDYMIS HEAD: Right Epididymis: 2.4 cm Left Epididymis: 1.1 cm Doppler performed to assess for testicular vascularity; good bilateral color flow and waveforms are s een. There is no evidence of testicular torsion. Presence of hydroceles: yes, medial to right testicle = 3.9cm Presence of varicoceles: Dilated vasculature lateral to bilateral testes slightly increases bilatera lly with Valsalva. Heterogeneous, enlarged right epididymis with increased vascularity. Complex cystic area right epidid ymis = 1.4 x 0.9 x 1.5cm Cystic area left epididymis = 0.5cm IMPRESSION: 1. Marked right epididymoorchitis. 2. Moderate right simple appearing hydrocele, likely reactive. 3. Multiloculated epididymal cyst, likely benign. 4. Prominent right testicular vasculature raising the question of varicocele with left varicocele pre sent. CT abdomen pelvis could be performed to evaluate for mass or adenopathy considering the possibl e right varicocele. A Yellow message has been communicated to Shahla Kiser DO via the [employer] Critical Result system on 12/01/2017 12:55 PM, Message ID [id number].
== END | disposition home or self-care (01) ==
LOC: RADUSWWP 11:55
PROVIDERS: ATTEND Family Medicine
DX: N45.3 Epididymo-orchitis (principal); N43.3 Hydrocele, unspecified; N50.3 Cyst of epididymis; N50.1 Vascular disorders of male genital organs
CPT/HCPCS: 76870; 93975

== ENCOUNTER 2018-03-20 11:27 | Day surgery (SDC) | payer BC ==
[2018-03-20 13:02] VITALS: RESP 18; TEMP 97.2
[2018-03-20] MEDS ORDERED: LACTATED RINGERS 1,000 ML IV ONE (13:03)
[2018-03-20] MEDS ORDERED: LIDOCAINE 1% 20 ML VIAL (10MG/ML) FOR IV START INTRADERMA ONE (13:04)
[2018-03-20 13:12] LABS: Glucose,Whole Blood 111 mg/dL (75-99)
[2018-03-20] MEDS ORDERED: LIDOCAINE 1% INJ 10MG/ML (20 ML MDV) ONE (14:50)
[2018-03-20] MEDS ORDERED: PROPOFOL 10 MG/ML 20 ML VIAL IV ONE (14:50)
--- NOTE | 2018-03-20 15:21 | P.PCN ---
Date of Procedure: 03/20/18 Procedure(s) Performed: Procedure: Colonoscopy and biopsy and polypectomy. Preoperative diagnosis: Screening for neoplasia. Postoperative diagnosis: Diminutive polyp right colon, biopsied and sigmoid polyp, snared but no large polyps or cancer. Preparation: HalfLytely prep. Sedation: Was provided by anesthesia. Brief clinical history: The patient is a 63-year-old male who is referred for this evaluation for screening for neoplasia age being his risk factor. He has no family history of colon cancer. He patient has no abdominal complaints, bleeding or anemia. This would be his first colonoscopy. Procedure: With the patient on his left lateral decubitus position and after informed consent and adequate sedation, the perianal area was inspected and it did not show any fissures or fistulas. There were no masses felt on digital rectal examination. The Olympus CFQ 160L video colonoscope was then inserted in the rectum in the usual fashion and advanced to the cecum. There was a diminutive polyp in the proximal right colon which was biopsied and there was a small polyp in the distal sigmoid which was snared but there was no large polyps or cancer. The mucosa appeared healthy. I did not notice any obvious diverticular disease or other pathology. I retroflexed the endoscope in the rectum before the endoscope was withdrawn. The patient tolerated the procedure well. Plan: The patient was reassured. Will await pathology results. I anticipate repeating this exam in 5 years. He will follow up with you as planned.
[2018-03-20 15:38] VITALS: BP 115/82; PULSE 88
== END 2018-03-20 15:57 | disposition home or self-care (01) ==
LOC: ORWHC2ENDO 11:27
DX: Z12.11 Encounter for screening for malignant neoplasm of colon (principal); D12.2 Benign neoplasm of ascending colon; K63.5 Polyp of colon; E11.9 Type 2 diabetes mellitus without complications; I25.10 Atherosclerotic heart disease of native coronary artery without angina pectoris; I10 Essential (primary) hypertension; E78.5 Hyperlipidemia, unspecified; G47.33 Obstructive sleep apnea (adult) (pediatric); N40.0 Benign prostatic hyperplasia without lower urinary tract symptoms; Z95.5 Presence of coronary angioplasty implant and graft; Z99.89 Dependence on other enabling machines and devices; Z86.73 Personal history of transient ischemic attack (TIA), and cerebral infarction without residual deficits; Z79.899 Other long term (current) drug therapy; Z79.82 Long term (current) use of aspirin
CPT/HCPCS: 88305; 45380; 45385; J2001; J2704

== ENCOUNTER → 2019-01-08 | Outpatient (CLI) | payer BC ==
--- NOTE | 2019-01-08 07:45 | US ---
EXAMINATION TYPE: US kidneys/renal and bladder DATE OF EXAM: 01/08/2019 COMPARISON: NONE CLINICAL HISTORY: N18.3 CKD. abnormal labs, large body habitus EXAM MEASUREMENTS: Right Kidney: 11.5 x 5.5 x 5.1 cm Left Kidney: 11.3 x 4.6 x 4.9 cm Right Kidney: No hydronephrosis or masses seen Left Kidney: No hydronephrosis or masses seen Bladder: irregular wall borders with anterior wall measurement of 0.6cm Bilateral Jets seen: yes There is no evidence for hydronephrosis at this point in time. No nephrolithiasis is seen. No adam s are identified. The urinary bladder is anechoic. Bilateral ureteral jets are seen. IMPRESSION: 1. No current sonographic sequela of chronic medical renal disease. No hydronephrosis or nephrolithia sis. 2. Urinary bladder wall appears somewhat irregular and thickened however this may relate to incomplet e distention. Correlation with urinalysis is recommended. If there is further concern CT urogram coul d be performed or direct visualization.
== END ==
LOC: RADUSWWP 06:46
PROVIDERS: ATTEND Internal Medicine Nephrology
DX: N18.3 Chronic kidney disease, stage 3 (moderate) (principal)
CPT/HCPCS: 76770

== ENCOUNTER → 2020-06-03 | Outpatient (CLI) | payer BC ==
[2020-06-03 11:53] LABS: Basophils % (A) 0 %; Eosinophils # (A) 0.1 k/uL (0-0.7); Eosinophils % (A) 1 %; HCT 48.9 % (39.0-53.0); HGB 15.4 gm/dL (13.0-17.5); Lymphocytes # (A) 1.1 k/uL (1.0-4.8); Lymphocytes % (A) 16 %; MCH 29.1 pg (25.0-35.0); MCHC 31.5 g/dL (31.0-37.0); MCV 92.4 fL (80.0-100.0); Mean Platelet Volume 7.5; Monocytes # (A) 0.4 k/uL (0-1.0); Monocytes % (A) 6 %; Neutrophils % (A) 74 %; Platelet Count 298 k/uL (150-450); RBC 5.29 m/uL (4.30-5.90); RDW 13.7 % (11.5-15.5); WBC 6.8 k/uL (3.8-10.6)
[2020-06-03 11:59] LABS: Calcium 9.3 mg/dL (8.4-10.2); Potassium 4.4 mmol/L (3.5-5.1)
== END | disposition home or self-care (01) ==
LOC: LABPAT 09:36
PROVIDERS: ATTEND Urology
DX: Z01.818 Encounter for other preprocedural examination (principal); N40.1 Benign prostatic hyperplasia with lower urinary tract symptoms
CPT/HCPCS: 36415; 80048; 85025; 87086; 93005

== ENCOUNTER 2020-06-10 10:47 | Inpatient (IN) | payer BC ==
[2020-06-05 11:36] VITALS: BMI 44.3
--- NOTE | 2020-06-08 21:17 | P.GSHP ---
History of Present Illness H&P Date: 06/08/20 Chief Complaint: Urinary retention secondary to benign prostatic hyperplasia The patient is a 65-year-old male who was originally evaluated by me in 08/2016 while he was admitted to [facility] for evaluation of an elevated creatinine and bilateral hydronephrosis. A catheter was inserted and drained 1500 cc. The patient's creatinine fell and has stabilized at approximately 1.55. The patient remained unable to void completely and has been managed with an indwelling catheter initially and then was switched to intermittent catheterization in 2016. Renal ultrasound on 01/08/2019 revealed no hydronephrosis. The patient has been treated with a combination of finasteride and tamsulosin but continues to have postvoid residuals in the 8-12 ounce range. A cystometrogram in 2016 showed a hypotonic bladder and because of that TURP was not recommended at that time. Since then the patient has had more improvement as far as emptying his bladder but continues to have a persistently elevated postvoid residual. The patient's prostate volume was 75 cc in 2016 and 68 cc in 12/2019. I discussed treatment options with the patient and in view of his persistent urinary retention the patient wishes to proceed with TURP. The surgery was originally scheduled in 01/2020 were required to be deferred due to the COVID-19 outbreak. The patient was noted to have a Klebsiella oxytocic urinary tract infection during his preoperative testing and was started on Bactrim DS 1 twice a day on 06/07/2020. - Constitutional Constitutional: Denies chills, Denies fever, Denies weight loss - EENT Ears, nose, mouth and throat: Denies vertigo - Cardiovascular Cardiovascular: Denies chest pain, Denies edema, Denies palpitations, Denies shortness of breath - Respiratory Respiratory: Denies cough, Denies wheezing - Gastrointestinal Gastrointestinal: Denies abdominal pain, Denies constipation, Denies heartburn - Genitourinary (Male) Genitourinary: Denies hematuria Past Medical History Past Medical History: Diabetes Mellitus, Hyperlipidemia, Hypertension, Prostate Disorder, Renal Disease, Sleep Apnea/CPAP/BIPAP Additional Past Medical History / Comment(s): has cpap History of Any Multi-Drug Resistant Organisms: None Reported Past Surgical History: Heart Catheterization With Stent (2016) Additional Past Surgical History / Comment(s): right middle finger tip Past Anesthesia/Blood Transfusion Reactions: No Reported Reaction, Motion Sickness Date of Last Stent Placement:: 09-02-16 Smoking Status: Former smoker - Past Family History Mother Family Medical History: Diabetes Mellitus, Hypertension Additional Family Medical History / Comment(s): varicose veins Father Family Medical History: Hyperlipidemia, Hypertension Additional Family Medical History / Comment(s): enlarged heart with leaky valve Medications and Allergies Home Medications Medication Instructions Recorded Confirmed Type Aspirin 81 mg PO DAILY 08/29/16 06/05/20 History Tamsulosin [Flomax] 0.4 mg PO BID 08/29/16 06/05/20 History Nitroglycerin Sl Tabs [Nitrostat] 0.4 mg SUBLINGUAL Q5M PRN #25 tab 09/03/16 06/05/20 Rx Atorvastatin [Lipitor] 80 mg PO HS 04/17/17 06/05/20 History Finasteride [Proscar] 5 mg PO DAILY 04/17/17 06/05/20 History Lisinopril [Zestril] 2.5 mg PO DAILY 04/17/17 06/05/20 History Diazepam [Valium] 5 mg PO BID PRN #6 tab 04/20/17 06/05/20 Rx Empagliflozin [Jardiance] 10 mg PO DAILY 06/05/20 06/05/20 History Empagliflozin/Linagliptin 1 each PO DAILY 06/05/20 06/05/20 History [Glyxambi 10 mg-5 mg Tablet] Ergocalciferol [Vitamin D2] 50,000 unit PO Q30D 06/05/20 06/05/20 History Pioglitazone [Actos] 30 mg PO DAILY 06/05/20 06/05/20 History glipiZIDE [Glucotrol] 10 mg PO AC-BRKFST 06/05/20 06/05/20 History sitaGLIPtin [Januvia] 50 mg PO DAILY 06/05/20 06/05/20 History Allergies Allergy/AdvReac Type Severity Reaction Status Date / Time No Known Allergies Allergy Verified 06/05/20 11:22 Surgical - Exam - General well developed, well nourished, no distress, obese - ENT no hearing loss - Neck no masses, no bruits, no lymphadectomy - Respiratory normal respiratory effort, clear to auscultation - Cardiovascular Rhythm: regular Abnormal Heart Sounds: no systolic murmur, no diastolic murmur - Abdomen Abdomen: soft, no organomegaly, no distended Hernia: none - Genitourinary normal penis with no external lesions, testicles non-tender - Rectum Rectum: normal sphincter tone, other (Prostate is 2+ enlarged and benign to palpation) Assessment and Plan Assessment: The patient will undergo TURP under either general or spinal anesthesia. He is aware of the operative risks which include anesthesia, bleeding, infection, incontinence, discovery of prostate cancer and persistent incomplete bladder emptying. (1) Benign localized hyperplasia of prostate with urinary obstruction and lower urinary tract symptoms Status: Acute Code(s): N40.1 - BENIGN PROSTATIC HYPERPLASIA WITH LOWER URINARY TRACT SYMP; N13.9 - OBSTRUCTIVE AND REFLUX UROPATHY, UNSPECIFIED SNOMED Code(s): 499334462
[~2020-06-10 10:47] MED LIST: DEXAMETHASONE SOD PHOSPHATE 10 MG/ML 1 ML VIAL IV ONE; HYDROmorphone 0.5 MG/0.5 ML SYRINGE IVP PRN; LACTATED RINGERS 1,000 ML IV SCH; ONDANSETRON 4 MG/2 ML VIAL IVP ONE
[2020-06-10] MEDS ORDERED: ONDANSETRON 4 MG/2 ML VIAL ONE (11:19)
[2020-06-10] MEDS ORDERED: LIDOCAINE 1% (10MG/ML) FOR IV START INTRADERMA ONE (11:31)
[2020-06-10 11:35] LABS: Glucose,Whole Blood 101 mg/dL (75-99)
[2020-06-10] MEDS ORDERED: fentaNYL (PF) 50 MCG/ML 2 ML AMP ONE (11:56)
[2020-06-10] MEDS ORDERED: GLYCOPYRROLATE 0.2 MG/ML 2 ML VIAL ONE (11:56)
[2020-06-10] MEDS ORDERED: LIDOCAINE 1% INJ 10MG/ML (20 ML MDV) ONE (11:56)
[2020-06-10] MEDS ORDERED: PHENYLEPHRINE-0.9% NACL SYG 1 MG/10 ML SYRINGE ONE (11:56)
[2020-06-10] MEDS ORDERED: NEOSTIGMINE 1 MG/ML 10 ML VIAL ONE (11:56)
[2020-06-10] MEDS ORDERED: ROCURONIUM BROMIDE 10 MG/ML 5 ML VIAL IV ONE (11:56)
[2020-06-10] MEDS ORDERED: MIDAZOLAM 2 MG/2 ML VIAL ONE (11:56)
[2020-06-10] MEDS ORDERED: PROPOFOL 10 MG/ML 20 ML VIAL IV ONE (11:56)
[2020-06-10] MEDS ORDERED: SUCCINYLCHOLINE CHLORIDE 100 MG/5 ML SYR IV ONE (11:56)
[2020-06-10] MEDS ORDERED: VASOPRESSIN 20 UNIT/ML 1 ML VIAL ONE (11:56)
[2020-06-10] MEDS: ceFAZolin 3 GM in SODIUM CHLORIDE 0.9% 100 ML IVPB ONE ×2 (12:22→12:40)
[2020-06-10] MEDS ORDERED: LACTATED RINGERS 1,000 ML IV ONE (14:01)
--- NOTE | 2020-06-10 15:57 | XR ---
EXAMINATION TYPE: XR chest 1V portable DATE OF EXAM: 06/10/2020 COMPARISON: Chest x-ray April 17, 2017 HISTORY: Shortness of breath to be intubated. TECHNIQUE: 2 AP portable frontal semiupright views of the chest is obtained. FINDINGS: New Endotracheal tube terminates at aortic knob level Approximately 2-3 cm above the rayshawn . Redemonstration of cardiomegaly with moderate central vascular congestion and bibasilar opacities. No pneumothorax bilaterally. Multilevel spurring in the spine. IMPRESSION: 1. New endotracheal tube above rayshawn can BE retracted 2 to 3 cm to be in more ideal position. 2. Suspect CHF exacerbation and there is cardiomegaly with moderate to severe central vascular conges tion and moderate-sized bilateral pleural effusions with associated compressive atelectasis. Correlat e clinically.
[2020-06-10 15:58] LABS: Glucose,Whole Blood 189 mg/dL (75-99)
[2020-06-10 16:01] LABS: Albumin 3.7 g/dL (3.5-5.0); Calcium 8.4 mg/dL (8.4-10.2); Potassium 5.1 mmol/L (3.5-5.1); Total Bilirubin 0.5 mg/dL (0.2-1.3); Total Protein 7.1 g/dL (6.3-8.2)
[2020-06-10] MEDS ORDERED: FUROSEMIDE 10 MG/ML 4 ML VIAL IV ONE (16:30)
--- NOTE | 2020-06-10 16:39 | P.PN ---
Progress Note - Text Progress Note Date: 06/10/20 After the patient was extubated and taken to the recovery room he began having difficulty breathing with an O2 sat of 83. Due to his obesity and difficulty breathing it was elected to reintubate the patient. The patient was eventually extubated in the recovery room and placed on a CPAP unit but continued to have difficulty with breathing. It was the recommendation of the anesthesiologist the patient be observed overnight in the intensive care unit. He will be evaluated by a chute operator. The patient has remained normotensive. Electrolytes were checked in the recovery room and were normal. Urine draining from his Jaquez catheter is clear to pink tinged.
[2020-06-10] MEDS ORDERED: NALOXONE 0.4 MG/ML 1 ML VIAL IV PRN (17:00)
[2020-06-10 17:18] LABS: Glucose,Whole Blood 225 mg/dL (75-99)
[2020-06-10 17:27] LABS: ABG Base Excess -6.8 mmol/L; ABG HCO3 18 mmol/L (21-25); ABG PCO2 30 mmHg (35-45); ABG PH 7.39 (7.35-7.45); ABG PO2 334 mmHg (83-108); ABG TCO2 19 mmol/L (19-24); Allen Test Performed? Yes
[2020-06-10] MEDS ORDERED: FUROSEMIDE 10 MG/ML 2 ML VIAL IV ONE (17:45)
[2020-06-10 17:55] LABS: HCT 50.3 % (39.0-53.0); HGB 15.6 gm/dL (13.0-17.5); Hypochromasia Slight; MCH 29.9 pg (25.0-35.0); MCV 96.5 fL (80.0-100.0); Mean Platelet Volume 7.9; Platelet Count 321 k/uL (150-450); RBC 5.21 m/uL (4.30-5.90); RDW 13.5 % (11.5-15.5); WBC 13.3 k/uL (3.8-10.6)
[2020-06-10 19:04] LABS: ABG HCO3 22 mmol/L (21-25); ABG Oxygen Saturation 93.8 % (94-97); ABG PCO2 59 mmHg (35-45); ABG PO2 86 mmHg (83-108); ABG TCO2 24 mmol/L (19-24); Allen Test Performed? Yes
[2020-06-10 19:06] LABS: ABG PH 7.19 (7.35-7.45)
[2020-06-10 21:16] LABS: Glucose,Whole Blood 143 mg/dL (75-99)
[2020-06-10] MEDS: INSULIN ASPART (NovoLOG) 100 UNIT/ML VIAL SQ SCH (21:31)
[2020-06-11 05:30] LABS: Basophils % (A) 0 %; Eosinophils # (A) 0.3 k/uL (0-0.7); Eosinophils % (A) 2 %; HCT 45.6 % (39.0-53.0); HGB 14.8 gm/dL (13.0-17.5); Lymphocytes # (A) 0.8 k/uL (1.0-4.8); Lymphocytes % (A) 5 %; MCH 30.3 pg (25.0-35.0); MCHC 32.6 g/dL (31.0-37.0); MCV 93.2 fL (80.0-100.0); Mean Platelet Volume 7.7; Monocytes # (A) 0.7 k/uL (0-1.0); Monocytes % (A) 5 %; Neutrophils # (A) 13.7 k/uL (1.3-7.7); Neutrophils % (A) 88 %; Platelet Count 332 k/uL (150-450); RBC 4.89 m/uL (4.30-5.90); RDW 13.6 % (11.5-15.5); WBC 15.7 k/uL (3.8-10.6)
[2020-06-11 05:39] LABS: Calcium 8.6 mg/dL (8.4-10.2); Potassium 4.6 mmol/L (3.5-5.1)
[2020-06-11 06:47] LABS: Glucose,Whole Blood 137 mg/dL (75-99)
[2020-06-11] MEDS: INSULIN ASPART (NovoLOG) 100 UNIT/ML VIAL SQ SCH (06:54)
--- NOTE | 2020-06-11 07:09 | XR ---
EXAMINATION TYPE: XR chest 1V DATE OF EXAM: 06/11/2020 COMPARISON: 06/10/2020 HISTORY: Shortness of breath TECHNIQUE: Single frontal view of the chest is obtained. FINDINGS: ET tube is been removed. There is improvement in the areas of consolidation with persisten t densities at both lung bases. Tiny right effusion noted. No pneumothorax. Arthropathy of the should ers. No overt failure. Heart size normal. Atherosclerotic change aorta IMPRESSION: 1. Improving bilateral lower lobe infiltrate and pleural effusion with significant improvement relati ve to the prior exam.
--- NOTE | 2020-06-11 07:57 | P.PN ---
Progress Note - Text Progress Note Date: 06/11/20 The patient has been hemodynamically stable overnight. His O2 sat is in the 90s on 2 L of oxygen. He is hungry and is tolerating a diet. He says that his breathing is much better than it was immediately following his surgery. Urine draining from his catheter is pink tinged. Patient has received Lasix on several occasions since his surgery and his urine output has been excellent. The patient's chest x-ray in the recovery room showed evidence of congestive heart failure and this has improved markedly by this morning. Hemoglobin is stable at 14.8. Sodium is 132, potassium 4.6 bicarb is 21. BUN/creatinine are 47/2.24. The rise in creatinine is most likely related to his diuresis and his congestive heart failure in the postoperative period. The etiology of his congestive heart failure may have been fluid overload intraoperatively partly from IV fluids and partly related to saline absorption through the prosthetic capsule during the lengthy TURP. From my standpoint the patient can be discharged later today. The patient will leave his catheter in over the weekend and remove it Monday morning. He will continue Bactrim DS based on his preoperative urine culture.
[2020-06-11] MEDS ORDERED: SULFAMETHOX-TMP 800-160MG 1 EACH TAB PO STA (08:32)
[2020-06-11] MEDS ORDERED: PANTOPRAZOLE 40 MG/10 ML VIAL IV SCH (09:00)
[2020-06-11 10:11] VITALS: BP 111/67; PULSE 79; RESP 23; TEMP 98
--- NOTE | 2020-06-11 12:26 | P.CNPUL ---
History of Present Illness Consult date: 06/11/20 Requesting physician: Rajendra Jimenez Reason for consult: other (Acute hypoxic and hypercapnic respiratory failure, post TURP.) Chief complaint: Status post TURP, required BiPAP. History of present illness: This is a 65-year-old white male with history of diabetes, hypertension, prostate disorder, obstructive sleep apnea syndrome maintained on CPAP/BiPAP. Patient was evaluated in 2016 by urology for elevated creatinine and bilateral hydronephrosis. Catheter drainage done and the patient developed significant improvement in his renal profile with creatinine down to 1.55. Patient continue s to have difficulty voiding, and this was managed with an indwelling catheter initially, then he was switched later on to intermittent catheterization in 2017. Patient was treated with a combination of finasteride and tamsulosin but he continued to have persistently elevated postvoid residual. Considering the persistent urinary retention, patient underwent TURP yesterday. Postoperatively, the patient developed what seemed to be hypoxic and hypercapnic respiratory failure with pulmonary edema. Patient was extubated reintubated postoperatively then every extubated and placed on BiPAP after he received diuretics. Considering the patient was placed on BiPAP, patient had to be admitted to the ICU, and he was monitored overnight. I saw him this morning, chest x-ray showed significant improvement in his interstitial edema. And he responded well to diuretics overnight. Received a few doses of Lasix since his surgery, and he is now on room air, denies any shortness of breath cough or w heezing. He was seen by urology early this morning, and felt the patient could be discharged home on follow-up on outpatient basis. Echocardiogram in 2017 showed good LV function with ejection fraction of 55%. And there was no evidence of pulmonary hypertension. In 2016, patient had stenting of the second diagonal branch of the LAD done by Dr. Espinoza. Review of Systems Constitutional: Negative HEENT: Negative patient is known to have history of obstructive sleep apnea, maintained on BiPAP at home. Pulmonary: Negative Cardiac: Negative, patient is known to have history of coronary artery disease and previous stent placement in 2016. Pulmonary: As noted in HPI. Presently the patient is asymptomatic but apparently he was quite short of breath yesterday. GI: Negative Genitourinary: As noted in HPI. Neurologic: Negative Hematologic: Negative Psychiatric: Negative Skin: Negative Endocrine: Negative Past Medical History Past Medical History: Diabetes Mellitus, Hyperlipidemia, Hypertension, Prostate Disorder, Renal Disease, Sleep Apnea/CPAP/BIPAP Additional Past Medical History / Comment(s): has cpap History of Any Multi-Drug Resistant Organisms: None Reported Past Surgical History: Heart Catheterization With Stent Additional Past Surgical History / Comment(s): right middle finger tip Past Anesthesia/Blood Transfusion Reactions: No Reported Reaction, Motion Sickness Date of Last Stent Placement:: 09-02-16 Past Psychological History: No Psychological Hx Reported Smoking Status: Former smoker Past Alcohol Use History: Rare Additional Past Alcohol Use History / Comment(s): smoked for 40 years quit 2015 Past Drug Use History: None Reported - Past Family History Mother Family Medical History: Diabetes Mellitus, Hypertension Additional Family Medical History / Comment(s): varicose veins Father Family Medical History: Hyperlipidemia, Hypertension Additional Family Medical History / Comment(s): enlarged heart with leaky valve Medications and Allergies Home Medications Medication Instructions Recorded Confirmed Type Aspirin 81 mg PO DAILY 08/29/16 06/10/20 History Tamsulosin [Flomax] 0.4 mg PO BID 08/29/16 06/10/20 History Nitroglycerin Sl Tabs [Nitrostat] 0.4 mg SUBLINGUAL Q5M PRN #25 tab 09/03/16 06/10/20 Rx Atorvastatin [Lipitor] 80 mg PO HS 04/17/17 06/10/20 History Finasteride [Proscar] 5 mg PO DAILY 04/17/17 06/10/20 History lisinopriL [Zestril] 2.5 mg PO DAILY 04/17/17 06/10/20 History diazePAM [Valium] 5 mg PO BID PRN #6 tab 04/20/17 06/10/20 Rx Empagliflozin [Jardiance] 10 mg PO DAILY 06/05/20 06/10/20 History Empagliflozin/Linagliptin 1 each PO DAILY 06/05/20 06/10/20 History [Glyxambi 10 mg-5 mg Tablet] Ergocalciferol [Vitamin D2] 50,000 unit PO Q30D 06/05/20 06/10/20 History Pioglitazone [Actos] 30 mg PO DAILY 06/05/20 06/10/20 History glipiZIDE [Glucotrol] 10 mg PO AC-BRKFST 06/05/20 06/10/20 History sitaGLIPtin [Januvia] 50 mg PO DAILY 06/05/20 06/10/20 History Sulfamethox-Tmp 800-160Mg [Bactrim 1 tab PO BID 06/10/20 06/10/20 History DS 800-160 mg] Allergies Allergy/AdvReac Type Severity Reaction Status Date / Time No Known Allergies Allergy Verified 06/10/20 11:06 Physical Exam Vitals: Vital Signs Temp Pulse Pulse Resp BP BP Pulse Ox 06/11/20 10:00 98.0 F 79 23 111/67 93 L 06/11/20 09:00 82 17 100/70 90 L 06/11/20 08:00 84 23 101/65 94 L 06/11/20 07:00 87 18 98/60 06/11/20 06:00 91 26 H 93/59 93 L 06/11/20 05:00 92 24 92/56 93 L 06/11/20 04:00 90 18 99/60 93 L 06/11/20 03:00 90 18 91/61 93 L 06/11/20 02:00 88 22 92/66 94 L 06/11/20 01:00 97 18 91/64 93 L 06/11/20 00:00 98.5 F 98 22 145/98 90 L 06/10/20 23:00 101 H 23 106/65 93 L 06/10/20 22:10 98 24 91 L 06/10/20 22:00 98 14 103/67 94 L 06/10/20 21:00 96 20 113/78 93 L 06/10/20 20:00 98.5 F 98 17 91/66 98 06/10/20 19:30 99 19 115/72 91 L 06/10/20 19:00 91 18 120/78 98 06/10/20 18:30 92 15 133/96 98 06/10/20 18:00 91 14 116/72 97 06/10/20 17:30 97.3 F L 90 17 115/74 100 06/10/20 17:15 91 89 18 100/60 99 06/10/20 17:00 92 24 99/59 97 06/10/20 16:45 96 26 H 94/55 95 06/10/20 16:30 104 H 27 H 119/61 93 L 06/10/20 16:15 111 H 31 H 135/66 92 L 06/10/20 16:00 110 H 16 163/89 91 L 06/10/20 15:45 111 H 16 163/88 91 L 06/10/20 15:30 109 H 16 168/92 91 L 06/10/20 15:18 98.6 F 97 16 103/57 91 L Intake and Output 06/10/20 06/11/20 06/11/20 22:59 06:59 14:59 Intake Total 300 500 Output Total 2852 410 305 Balance -2552 -410 195 Intake: IV 300 Oral 500 Output: Urine 2792 410 305 Estimated Blood Loss 60 Other: Voiding Method Indwelling Catheter Indwelling Catheter Indwelling Catheter Weight 141 kg 144.3 kg Physical Exam: Revealed a 65-year-old white male in no distress. HEENT: Short obese neck. [Neck is supple.] [No neck masses.] [No thyromegaly.] [No JVD.] Mallampati class IV. Chest: [Clear throughout, minimal fine crackles at the bases, no rhonchi and no wheezes. Cardiac Exam: [Normal S1 and S2, no S3 gallop, no murmur.] Abdomen: [Obese, Soft, nontender, no megaly, no rebound, no guarding, normal bowel sounds.] Extremities: [No clubbing, 1+ bipedal edema, no cyanosis.] Neurological Exam: [No focal neurologic deficit.] Alert and oriented 3. Psychiatric: Normal mood, affect and normal mental status examination. Skin: No rashes. Lymphatics: No lymphadenopathy. Results - Laboratory Findings CBC and BMP: 06/11/20 05:17 06/11/20 05:17 ABG ABG pH 7.39 (7.35-7.45) 06/10/20 17:16 ABG pCO2 30 mmHg (35-45) L 06/10/20 17:16 ABG pO2 334 mmHg (83-108) H 06/10/20 17:16 ABG O2 Saturation 100.0 % (94-97) H 06/10/20 17:16 Abnormal lab findings: Abnormal Labs 06/10/20 06/10/20 06/10/20 11:30 15:42 15:42 WBC 13.3 H Neutrophils # Lymphocytes # ABG pH ABG pCO2 ABG pO2 ABG HCO3 ABG O2 Saturation Sodium Carbon Dioxide 21 L BUN 27 H Creatinine 1.64 H Glucose 208 H POC Glucose (mg/dL) 101 H Alkaline Phosphatase 153 H 06/10/20 06/10/20 06/10/20 15:53 15:55 17:16 WBC Neutrophils # Lymphocytes # ABG pH 7.19 L* ABG pCO2 59 H 30 L ABG pO2 334 H ABG HCO3 18 L ABG O2 Saturation 93.8 L 100.0 H Sodium Carbon Dioxide BUN Creatinine Glucose POC Glucose (mg/dL) 189 H Alkaline Phosphatase 06/10/20 06/10/20 06/11/20 17:16 21:14 05:17 WBC 15.7 H Neutrophils # 13.7 H Lymphocytes # 0.8 L ABG pH ABG pCO2 ABG pO2 ABG HCO3 ABG O2 Saturation Sodium Carbon Dioxide BUN Creatinine Glucose POC Glucose (mg/dL) 225 H 143 H Alkaline Phosphatase 06/11/20 06/11/20 05:17 06:46 WBC Neutrophils # Lymphocytes # ABG pH ABG pCO2 ABG pO2 ABG HCO3 ABG O2 Saturation Sodium 132 L Carbon Dioxide 21 L BUN 42 H Creatinine 2.24 H Glucose 166 H POC Glucose (mg/dL) 137 H Alkaline Phosphatase - Diagnostic Findings Chest x-ray: image reviewed (Improving bilateral interstitial edema and pleural effusions.) Assessment and Plan Assessment: Impression: Acute hypoxic and hypercapnic respiratory failure secondary to fluid overload and diastolic congestive heart failure following TURP. Unexpected. Underlying obesity/hypoventilation syndrome and obstructive sleep apnea syndrome, is another contributing factor to his acute hypoxic and hypercapnic respiratory failure. Chronic kidney disease stage III. History of coronary artery disease and previous stent placement in 2016. Type 2 diabetes. Obstructive sleep apnea syndrome. Benign essential hypertension. Chronic urinary retention secondary to enlarged prostate. Recommendation: Continue present supportive care measures. Fluid at KVO. Continue diuretics. Discontinue oxygen if O2 sats saturation on room air is above 90%. Consider discharge planning if cleared by other consultants. Follow-up with primary care physician and with his clinical radiologist post discharge Time with Patient: Greater than 30
[2020-06-11 20:32] LABS: Hemoglobin A1C 6.6 % (4.0-6.0)
--- NOTE | 2020-06-12 10:02 | P.DS ---
Providers Date of admission: 06/10/20 15:18 Expected date of discharge: 06/11/20 Attending physician: aRjendra Jimenez Consults: 06/10/20 16:29 Consult Physician Urgent Consulting Provider: Aislinn Rousseau Consult Reason/Comments: ICU MANAGEMENT Do you want consulting provider notified?: Already Contacted 06/10/20 16:41 Consult Physician Urgent Consulting Provider: Rafael Arias Consult Reason/Comments: MEDICAL MANAGEMENT Do you want consulting provider notified?: Yes Primary care physician: Shahla Kiser - Discharge Diagnosis(es) (1) Benign localized hyperplasia of prostate with urinary obstruction and lower urinary tract symptoms The patient underwent a TURP under general anesthesia. Due to the large prostate volume of the procedure lasted approximately 2 hours. The patient was extubated in the recovery room but had difficulties with shortness of breath on his way to the recovery room. He was initially tried on BiPAP but was reintubated due to worsening of his breathing. He was treated with Lasix and after a short period of time on the ventilator was extubated later in the afternoon. His breathing improved rapidly with diuresis and at the time of discharge on 06/11 his O2 sats were in the 90s on 2 L of oxygen. His urine was clear to pink tinged following the surgery. He was discharged with the catheter in place with the intent of removing the catheter on the morning of 06/12 and will seen back in the office later in the day to check a postvoid residual. The pathology report was pending at the time of discharge. Status: Acute Plan - Discharge Summary Discharge Rx Participant: No New Discharge Prescriptions: No Action Tamsulosin [Flomax] 0.4 mg PO BID Aspirin 81 mg PO DAILY Nitroglycerin Sl Tabs [Nitrostat] 0.4 mg SUBLINGUAL Q5M PRN #25 tab PRN Reason: Chest Pain lisinopriL [Zestril] 2.5 mg PO DAILY Finasteride [Proscar] 5 mg PO DAILY Atorvastatin [Lipitor] 80 mg PO HS diazePAM [Valium] 5 mg PO BID PRN #6 tab PRN Reason: Motion Sickness sitaGLIPtin [Januvia] 50 mg PO DAILY glipiZIDE [Glucotrol] 10 mg PO AC-BRKFST Pioglitazone [Actos] 30 mg PO DAILY Ergocalciferol [Vitamin D2] 50,000 unit PO Q30D Empagliflozin/Linagliptin [Glyxambi 10 mg-5 mg Tablet] 1 each PO DAILY Empagliflozin [Jardiance] 10 mg PO DAILY Sulfamethox-Tmp 800-160Mg [Bactrim DS 800-160 mg] 1 tab PO BID Discharge Medication List Aspirin 81 mg PO DAILY 08/29/16 [History] Tamsulosin [Flomax] 0.4 mg PO BID 08/29/16 [History] Nitroglycerin Sl Tabs [Nitrostat] 0.4 mg SUBLINGUAL Q5M PRN #25 tab 09/03/16 [Rx] Atorvastatin [Lipitor] 80 mg PO HS 04/17/17 [History] Finasteride [Proscar] 5 mg PO DAILY 04/17/17 [History] lisinopriL [Zestril] 2.5 mg PO DAILY 04/17/17 [History] diazePAM [Valium] 5 mg PO BID PRN #6 tab 04/20/17 [Rx] Empagliflozin [Jardiance] 10 mg PO DAILY 06/05/20 [History] Empagliflozin/Linagliptin [Glyxambi 10 mg-5 mg Tablet] 1 each PO DAILY 06/05/20 [History] Ergocalciferol [Vitamin D2] 50,000 unit PO Q30D 06/05/20 [History] Pioglitazone [Actos] 30 mg PO DAILY 06/05/20 [History] glipiZIDE [Glucotrol] 10 mg PO AC-BRKFST 06/05/20 [History] sitaGLIPtin [Januvia] 50 mg PO DAILY 06/05/20 [History] Sulfamethox-Tmp 800-160Mg [Bactrim DS 800-160 mg] 1 tab PO BID 06/10/20 [ History] Follow up Appointment(s)/Referral(s): Rajendra Jimenez MD [STAFF PHYSICIAN] - 06/12/20 2:20 pm Patient Instructions/Handouts: Jaquez Catheter Placement and Care (DC), Transurethral Prostatectomy (DC) Activity/Diet/Wound Care/Special Instructions: Continue Bactrim DS 1 twice a day until gone. Call in the morning. Discharge Disposition: HOME SELF-CARE
--- NOTE | 2020-06-12 11:39 | CDI ---
Documentation Clarification Form Date: 06/12/20 From: Aparna Walls Phone: If you have a question about this query, please contact Sharmila Barry, On Site Services Specialist at [phone] between 8am and 5pm. Admit Date: 06/10/20 Discharge Date: 06/11/20 Patient Name: KARLA BORJA Visit Number: [id number] ATTENTION: The Clinical Documentation Specialists (CDI) and [facility] Coding Staff appreciate your assistance in clarifying documentation. Please respond to the clarification below the line at the bottom and electronically sign. The CDI & [facility] Coding staff will review the response and follow-up if needed. Please note: Queries are made part of the Legal Health Record. If you have any questions, please contact the author of this message via ITS. Dear Dr. Aislinn Rousseau, Diastolic congestive heart failure is documented in your consult. He was given IV Lasix once. No BNP Chest x-ray: Suspect CHF exacerbation and there is cardiomegaly with moderate to severe central vascular congestion and moderate-sized bilateral pleural effusions with associated compressive atelectasis. Please specify the acuity of this condition with terms such as: Acute Chronic Acute and chronic Acute on chronic Other (please specify in the medical record) Clinically unable to further specify Unknown MTDD
--- NOTE | 2020-06-12 12:56 | P.OP ---
Date of Procedure: 06/10/20 Preoperative Diagnosis: Urinary retention secondary to BPH with obstruction Postoperative Diagnosis: Urinary retention secondary to BPH with obstruction Procedure(s) Performed: Transurethral resection of prostate Anesthesia: ELIGIO Surgeon: Rajendra Jimenez Estimated Blood Loss (ml): 75 Pathology: other (prostate fragments) Condition: stable Disposition: PACU Indications for Procedure: The patient is a 65 who was noted to have bilateral hydronephros secondary to a distended bladdder [id number]. He has been treated with self catherization and continues to have a large PVR despite the use of tamsulosin and finasteride. TURP is planned. Description of Procedure: The patient was taken to the operating suite where adequate general anesthesia via orotracheal intubation was instituted. Sequential pneumatic compression stockings were applied to the patient's lower legs. He was placed in the dorsal lithotomy position. The genitalia was prepped with Betadine solution and draped in sterile fashion. The penile and prostatic urethra were traversed under d irect vision using the 25-Armenian resectoscope visual obturator and 30 lens. The anterior urethra was unremarkable. Prostatic urethra showed evidence of prostatic enlargement with elongation and effacement of the lateral lobes in the midline producing obstruction. The bladder was examined. Bladder was trabeculated but free of tumor foreign body and diverticulum. Both ureteral orifices were of normal location and configuration. Resection of the prostate was performed using the continuous-flow Barker resectoscope and bipolar electrode. Resection was begun at 12:00 and continued down to the capsular fibers. Resection was bounded by the bladder neck proximally and the veru distally. In a concentric fashion the right and left lobes were resected down to the floor. At the completion of the procedure the prostatic fossa and bladder neck appeared wide open. The external sphincter appeared intact as demonstrated by withdrawing the beaker instrument back into the bulbous urethra. All prostate fragments removed from the prostatic fossa and bladder using the [employer] evacuator. After ensuring adequate hemostasis and removal of all fragments the resectoscope was withdrawn. An 18-Armenian Jaquez catheter with with 30 mL balloon was inserted over a catheter guide. Catheter was connected to gravity drainage. Patient tolerated procedure well and left the room awake and in satisfactory condition. Blood loss was proximal he 75 mL. Patient will be discharged and will be seen back in approximately 2 days. I anticipate having the patient remove the catheter prior to his office visit.
== END 2020-06-11 12:01 | disposition home or self-care (01) | DRG 987 ==
LOC: OR 10:47 → 2SICU 15:18
PROVIDERS: ADMIT Urology; ATTEND Urology
PROC: 5A09357 Assistance with Respiratory Ventilation, Less than 24 Consecutive Hours, Continuous Positive Airway Pressure (ICD-10-PCS; 2020-06-10)
PROC: 0VT08ZZ Resection of Prostate, Via Natural or Artificial Opening Endoscopic (ICD-10-PCS; principal; 2020-06-10 12:00)
PROC: 5A1935Z Respiratory Ventilation, Less than 24 Consecutive Hours (ICD-10-PCS; 2020-06-10 12:00)
PROC: 0BH17EZ Insertion of Endotracheal Airway into Trachea, Via Natural or Artificial Opening (ICD-10-PCS; 2020-06-10 12:00)
DX: J96.01 Acute respiratory failure with hypoxia (principal); I50.31 Acute diastolic (congestive) heart failure; E66.2 Morbid (severe) obesity with alveolar hypoventilation; N13.8 Other obstructive and reflux uropathy; I13.0 Hypertensive heart and chronic kidney disease with heart failure and stage 1 through stage 4 chronic kidney disease, or unspecified chronic kidney disease; N39.0 Urinary tract infection, site not specified; N18.3 Chronic kidney disease, stage 3 (moderate); E11.22 Type 2 diabetes mellitus with diabetic chronic kidney disease; J96.02 Acute respiratory failure with hypercapnia; Z11.59 Encounter for screening for other viral diseases; N31.2 Flaccid neuropathic bladder, not elsewhere classified; T50.2X5A Adverse effect of carbonic-anhydrase inhibitors, benzothiadiazides and other diuretics, initial encounter; G47.33 Obstructive sleep apnea (adult) (pediatric); I25.10 Atherosclerotic heart disease of native coronary artery without angina pectoris; N40.1 Benign prostatic hyperplasia with lower urinary tract symptoms; R33.8 Other retention of urine; E78.5 Hyperlipidemia, unspecified; Z87.891 Personal history of nicotine dependence; Z71.6 Tobacco abuse counseling; Z79.82 Long term (current) use of aspirin; Z79.84 Long term (current) use of oral hypoglycemic drugs; Z79.899 Other long term (current) drug therapy; Z95.5 Presence of coronary angioplasty implant and graft; Z83.3 Family history of diabetes mellitus; Z82.49 Family history of ischemic heart disease and other diseases of the circulatory system
CPT/HCPCS: 36600; 71045; 80048; 80053; 82805; 83036; 85025; 85027; 88305; 88341; 88344; 94002; 94660

== ENCOUNTER 2020-06-26 11:17 | Inpatient (IN) | payer BC ==
[2020-06-26] MEDS ORDERED: ACETAMINOPHEN TAB 500 MG TAB PO STA (11:49)
--- NOTE | 2020-06-26 11:52 | ED ---
General Adult HPI - General Chief complaint: Shortness of Breath Stated complaint: Dyspnea Time Seen by Provider: 06/26/20 11:36 Source: patient, RN notes reviewed Mode of arrival: ambulatory Limitations: no limitations - History of Present Illness Initial comments: Patient is a pleasant [age]-year-old male presenting to the emergency department with complaints of difficulty breathing. Onset of symptoms was yesterday, worse last night. Patient does use CPAP however does not have chronic dyspnea problems. Patient did have a TURP prostate surgery done a couple of weeks ago and was in the ICU following that secondary to breathing problems. No fever. No cough. Patient feels fatigued and generally weak throughout. Patient saw his doctor yesterday and was started again on Bactrim following urinalysis results. - Related Data Home Medications Medication Instructions Recorded Confirmed Aspirin 81 mg PO DAILY 08/29/16 06/26/20 Tamsulosin [Flomax] 0.4 mg PO BID 08/29/16 06/26/20 Atorvastatin [Lipitor] 80 mg PO HS 04/17/17 06/26/20 Finasteride [Proscar] 5 mg PO DAILY 04/17/17 06/26/20 lisinopriL [Zestril] 2.5 mg PO DAILY 04/17/17 06/26/20 Empagliflozin/Linagliptin 1 tab PO DAILY 06/05/20 06/26/20 [Glyxambi 10 mg-5 mg Tablet] Ergocalciferol [Vitamin D2] 50,000 unit PO Q30D 06/05/20 06/26/20 Pioglitazone [Actos] 30 mg PO DAILY 06/05/20 06/26/20 glipiZIDE [Glucotrol] 10 mg PO AC-BRKFST 06/05/20 06/26/20 Previous Rx's Medication Instructions Recorded Nitroglycerin Sl Tabs [Nitrostat] 0.4 mg SUBLINGUAL Q5M PRN #25 tab 09/03/16 diazePAM [Valium] 5 mg PO BID PRN #6 tab 04/20/17 Allergies Allergy/AdvReac Type Severity Reaction Status Date / Time No Known Allergies Allergy Verified 06/26/20 12:39 Review of Systems ROS Statement: Those systems with pertinent positive or pertinent negative responses have been documented in the HPI. ROS Other: All systems not noted in ROS Statement are negative. Constitutional: Denies: fever, chills Eyes: Denies: eye pain ENT: Denies: ear pain Respiratory: Reports: dyspnea. Denies: cough Cardiovascular: Denies: chest pain Endocrine: Reports: fatigue Gastrointestinal: Denies: abdominal pain Genitourinary: Denies: dysuria Musculoskeletal: Denies: back pain Skin: Denies: rash Neurological: Denies: weakness Past Medical History Past Medical History: Diabetes Mellitus, Hyperlipidemia, Hypertension, Prostate Disorder, Renal Disease, Sleep Apnea/CPAP/BIPAP Additional Past Medical History / Comment(s): has cpap History of Any Multi-Drug Resistant Organisms: None Reported Past Surgical History: Heart Catheterization With Stent Additional Past Surgical History / Comment(s): sewed right middle finger tip Past Anesthesia/Blood Transfusion Reactions: No Reported Reaction Date of Last Stent Placement:: 09-02-16 Past Psychological History: No Psychological Hx Reported Past Alcohol Use History: None Reported - Past Family History Mother Family Medical History: Diabetes Mellitus, Hypertension Additional Family Medical History / Comment(s): varicose veins Father Family Medical History: Hyperlipidemia, Hypertension Additional Family Medical History / Comment(s): enlarged heart with leaky valve General Exam Limitations: no limitations General appearance: alert, in no apparent distress Head exam: Present: normocephalic Eye exam: Present: normal appearance Neck exam: Present: normal inspection Respiratory exam: Present: normal lung sounds bilaterally Cardiovascular Exam: Present: regular rate, normal rhythm GI/Abdominal exam: Present: soft. Absent: tenderness Extremities exam: Present: normal inspection. Absent: pedal edema, calf tenderness Neurological exam: Present: alert Psychiatric exam: Present: normal affect, normal mood Skin exam: Present: normal color Course Vital Signs 06/26/20 06/26/20 11:18 13:03 Temperature 100.5 F H 99.4 F Pulse Rate 92 91 Respiratory 24 20 Rate Blood Pressure 99/66 93/64 O2 Sat by Pulse 99 100 Oximetry - Reevaluation(s) Reevaluation #1: 06/26/20 14:01 Patient does meet sepsis criteria diagnosed at 1400. Blood culture and lactic acid ordered. IV antibiotics will be ordered. EKG Findings - EKG Comments: EKG Findings:: Normal sinus rhythm 88. NH 132. QRS 82. QT 372. QTC 450. Normal axis. Septal Q waves. No acute ST change. Medical Decision Making - Medical Decision Making Patient reevaluated and updated. Case was discussed in detail with Dr. Arias who did come evaluate the patient and will admit. Consult will be placed with nephrology and urology as well as pulmonary. VQ scan will be ordered. - Lab Data Result diagrams: 06/26/20 11:56 06/26/20 11:56 Lab Results 06/26/20 06/26/20 06/26/20 Range/Units 11:56 11:56 11:56 WBC 17.2 H (3.8-10.6) k/uL RBC 4.79 (4.30-5.90) m/uL Hgb 14.1 (13.0-17.5) gm/dL Hct 44.1 (39.0-53.0) % MCV 91.9 (80.0-100.0) fL MCH 29.4 (25.0-35.0) pg MCHC 31.9 (31.0-37.0) g/dL RDW 13.0 (11.5-15.5) % Plt Count 454 H (150-450) k/uL Neutrophils % 86 % Lymphocytes % 6 % Monocytes % 5 % Eosinophils % 1 % Basophils % 0 % Neutrophils # 14.9 H (1.3-7.7) k/uL Lymphocytes # 1.0 (1.0-4.8) k/uL Monocytes # 0.9 (0-1.0) k/uL Eosinophils # 0.1 (0-0.7) k/uL Basophils # 0.0 (0-0.2) k/uL PT 10.9 (9.0-12.0) sec INR 1.1 (<1.2) APTT 25.5 (22.0-30.0) sec D-Dimer 5.23 H (<0.60) mg/L FEU Sodium 132 L (137-145) mmol/L Potassium 4.6 (3.5-5.1) mmol/L Chloride 97 L (98-107) mmol/L Carbon Dioxide 21 L (22-30) mmol/L Anion Gap 14 mmol/L BUN 37 H (9-20) mg/dL Creatinine 3.27 H (0.66-1.25) mg/dL Est GFR (CKD-EPI)AfAm 22 (>60 ml/min/1.73 sqM) Est GFR (CKD-EPI)NonAf 19 (>60 ml/min/1.73 sqM) Glucose 118 H (74-99) mg/dL Plasma Lactic Acid Herber (0.7-2.0) mmol/L Calcium 8.5 (8.4-10.2) mg/dL Magnesium 2.1 (1.6-2.3) mg/dL Total Bilirubin 1.1 (0.2-1.3) mg/dL AST 47 (17-59) U/L ALT 41 (4-49) U/L Alkaline Phosphatase 156 H (38-126) U/L Troponin I (0.000-0.034) ng/mL NT-Pro-B Natriuret Pep pg/mL Total Protein 6.8 (6.3-8.2) g/dL Albumin 3.1 L (3.5-5.0) g/dL Urine Color Urine Appearance (Clear) Urine pH (5.0-8.0) Ur Specific Dixon (1.001-1.035) Urine Protein (Negative) Urine Glucose (UA) (Negative) Urine Ketones (Negative) Urine Blood (Negative) Urine Nitrite (Negative) Urine Bilirubin (Negative) Urine Urobilinogen (<2.0) mg/dL Ur Leukocyte Esterase (Negative) Urine RBC (0-5) /hpf Urine WBC (0-5) /hpf Urine WBC Clumps (None) /hpf Urine Bacteria (None) /hpf 06/26/20 06/26/20 06/26/20 Range/Units 11:56 11:56 11:56 WBC (3.8-10.6) k/uL RBC (4.30-5.90) m/uL Hgb (13.0-17.5) gm/dL Hct (39.0-53.0) % MCV (80.0-100.0) fL MCH (25.0-35.0) pg MCHC (31.0-37.0) g/dL RDW (11.5-15.5) % Plt Count (150-450) k/uL Neutrophils % % Lymphocytes % % Monocytes % % Eosinophils % % Basophils % % Neutrophils # (1.3-7.7) k/uL Lymphocytes # (1.0-4.8) k/uL Monocytes # (0-1.0) k/uL Eosinophils # (0-0.7) k/uL Basophils # (0-0.2) k/uL PT (9.0-12.0) sec INR (<1.2) APTT (22.0-30.0) sec D-Dimer (<0.60) mg/L FEU Sodium (137-145) mmol/L Potassium (3.5-5.1) mmol/L Chloride (98-107) mmol/L Carbon Dioxide (22-30) mmol/L Anion Gap mmol/L BUN (9-20) mg/dL Creatinine (0.66-1.25) mg/dL Est GFR (CKD-EPI)AfAm (>60 ml/min/1.73 sqM) Est GFR (CKD-EPI)NonAf (>60 ml/min/1.73 sqM) Glucose (74-99) mg/dL Plasma Lactic Acid Herber 1.5 (0.7-2.0) mmol/L Calcium (8.4-10.2) mg/dL Magnesium (1.6-2.3) mg/dL Total Bilirubin (0.2-1.3) mg/dL AST (17-59) U/L ALT (4-49) U/L Alkaline Phosphatase (38-126) U/L Troponin I 0.045 H* (0.000-0.034) ng/mL NT-Pro-B Natriuret Pep 2340 pg/mL Total Protein (6.3-8.2) g/dL Albumin (3.5-5.0) g/dL Urine Color Urine Appearance (Clear) Urine pH (5.0-8.0) Ur Specific Dixon (1.001-1.035) Urine Protein (Negative) Urine Glucose (UA) (Negative) Urine Ketones (Negative) Urine Blood (Negative) Urine Nitrite (Negative) Urine Bilirubin (Negative) Urine Urobilinogen (<2.0) mg/dL Ur Leukocyte Esterase (Negative) Urine RBC (0-5) /hpf Urine WBC (0-5) /hpf Urine WBC Clumps (None) /hpf Urine Bacteria (None) /hpf 06/26/20 Range/Units 11:56 WBC (3.8-10.6) k/uL RBC (4.30-5.90) m/uL Hgb (13.0-17.5) gm/dL Hct (39.0-53.0) % MCV (80.0-100.0) fL MCH (25.0-35.0) pg MCHC (31.0-37.0) g/dL RDW (11.5-15.5) % Plt Count (150-450) k/uL Neutrophils % % Lymphocytes % % Monocytes % % Eosinophils % % Basophils % % Neutrophils # (1.3-7.7) k/uL Lymphocytes # (1.0-4.8) k/uL Monocytes # (0-1.0) k/uL Eosinophils # (0-0.7) k/uL Basophils # (0-0.2) k/uL PT (9.0-12.0) sec INR (<1.2) APTT (22.0-30.0) sec D-Dimer (<0.60) mg/L FEU Sodium (137-145) mmol/L Potassium (3.5-5.1) mmol/L Chloride (98-107) mmol/L Carbon Dioxide (22-30) mmol/L Anion Gap mmol/L BUN (9-20) mg/dL Creatinine (0.66-1.25) mg/dL Est GFR (CKD-EPI)AfAm (>60 ml/min/1.73 sqM) Est GFR (CKD-EPI)NonAf (>60 ml/min/1.73 sqM) Glucose (74-99) mg/dL Plasma Lactic Acid Herber (0.7-2.0) mmol/L Calcium (8.4-10.2) mg/dL Magnesium (1.6-2.3) mg/dL Total Bilirubin (0.2-1.3) mg/dL AST (17-59) U/L ALT (4-49) U/L Alkaline Phosphatase (38-126) U/L Troponin I (0.000-0.034) ng/mL NT-Pro-B Natriuret Pep pg/mL Total Protein (6.3-8.2) g/dL Albumin (3.5-5.0) g/dL Urine Color Yellow Urine Appearance Turbid (Clear) Urine pH 6.5 (5.0-8.0) Ur Specific Dixon 1.014 (1.001-1.035) Urine Protein 3+ H (Negative) Urine Glucose (UA) 3+ H (Negative) Urine Ketones Negative (Negative) Urine Blood Moderate H (Negative) Urine Nitrite Negative (Negative) Urine Bilirubin Negative (Negative) Urine Urobilinogen <2.0 (<2.0) mg/dL Ur Leukocyte Esterase Large H (Negative) Urine RBC 31 H (0-5) /hpf Urine WBC >182 H (0-5) /hpf Urine WBC Clumps Many H (None) /hpf Urine Bacteria Many H (None) /hpf - Radiology Data Radiology results: report reviewed (Basilar subsegmental changes more typical of atelectasis than pneumonia) Critical Care Time Critical Care Time: Yes Total Critical Care Time: 31 Disposition Clinical Impression: Urinary tract infection, Sepsis, Dyspnea Disposition: ADMITTED IP TO THIS HOSP Is patient prescribed a controlled substance at d/c from ED?: No Referrals: Shahla Kiser DO [Primary Care Provider] - 1-2 days Decision Time: 14:01
[2020-06-26 12:12] LABS: Basophils % (A) 0 %; Eosinophils # (A) 0.1 k/uL (0-0.7); Eosinophils % (A) 1 %; HCT 44.1 % (39.0-53.0); HGB 14.1 gm/dL (13.0-17.5); Lymphocytes % (A) 6 %; MCH 29.4 pg (25.0-35.0); MCHC 31.9 g/dL (31.0-37.0); MCV 91.9 fL (80.0-100.0); Mean Platelet Volume 7.2; Monocytes # (A) 0.9 k/uL (0-1.0); Monocytes % (A) 5 %; Neutrophils # (A) 14.9 k/uL (1.3-7.7); Neutrophils % (A) 86 %; Platelet Count 454 k/uL (150-450); RBC 4.79 m/uL (4.30-5.90); WBC 17.2 k/uL (3.8-10.6)
--- NOTE | 2020-06-26 12:14 | XR ---
EXAMINATION TYPE: XR chest 2V DATE OF EXAM: 06/26/2020 COMPARISON: 06/11/2020 TECHNIQUE: PA and lateral views submitted. HISTORY: Shortness of breath FINDINGS: The lungs are clear and there is no pneumothorax, pleural effusion, or focal pneumonia. Heart size stable. No overt failure. Biapical pleural thickening. Hypertrophic and degenerative change of the sp ine. IMPRESSION: 1. Basilar subsegmental changes felt more typical of atelectasis than pneumonia..
[2020-06-26 12:23] LABS: Albumin 3.1 g/dL (3.5-5.0); Calcium 8.5 mg/dL (8.4-10.2); Magnesium 2.1 mg/dL (1.6-2.3); Potassium 4.6 mmol/L (3.5-5.1); Total Bilirubin 1.1 mg/dL (0.2-1.3); Total Protein 6.8 g/dL (6.3-8.2)
[2020-06-26 12:30] LABS: INR 1.1 (<1.2); Partial Thromboplastin Time 25.5 sec (22.0-30.0); Prothrombin Time 10.9 sec (9.0-12.0)
[2020-06-26 12:43] LABS: D-Dimer 5.23 mg/L FEU (<0.60)
[2020-06-26 13:40] LABS: Appearance,Urine Turbid (Clear); Bacteria,Urine Many /hpf; Bilirubin,Urine Negative (Negative); Blood,Urine Moderate (Negative); Color,Urine Yellow; Glucose,Urine (UA) 3+ (Negative); Ketones,Urine Negative (Negative); Leukocyte Esterase,Urine Large (Negative); Nitrite,Urine Negative (Negative); PH, Urine 6.5 (5.0-8.0); Protein,Urine 3+ (Negative); RBC,Urine 31 /hpf (0-5); Urobilinogen,Urine <2.0 mg/dL (<2.0); WBC,Urine >182 /hpf (0-5)
[2020-06-26 13:41] LABS: Specific Gravity,Urine 1.014 (1.001-1.035)
[2020-06-26] MEDS ORDERED: cefTRIAXone IN SWFI 1,000 MG/10 ML SYRINGE IVP STA (14:02)
[2020-06-26] MEDS ORDERED: NALOXONE 0.4 MG/ML 1 ML VIAL IV PRN (14:02)
[2020-06-26] MEDS ORDERED: diazePAM 5 MG TAB PO PRN (14:26)
[2020-06-26] MEDS ORDERED: NITROGLYCERIN SL TABS 0.4 MG TAB SUBLINGUAL PRN (14:26)
[2020-06-26] MEDS ORDERED: TEMAZEPAM 15 MG CAP PO PRN (14:30)
[2020-06-26] MEDS ORDERED: HYDROmorphone 0.5 MG/0.5 ML SYRINGE IVP PRN (14:30)
[2020-06-26] MEDS ORDERED: HYDROcodone/APAP 5-325MG 1 EACH TAB PO PRN (14:30)
[2020-06-26] MEDS ORDERED: IOPAMIDOL CONTRAST (ORAL USE) VIAL PO PRN (14:37)
--- NOTE | 2020-06-26 15:19 | NM ---
EXAMINATION TYPE: NM pul vent and perfuse DATE OF EXAM: 06/26/2020 COMPARISON: Chest x-ray 06/26/2020 HISTORY: Difficulty breathing TECHNIQUE: Utilizing inhalation of 65.2 mCi Tc 99m DTPA aerosol and intravenous injection of 5.2 mCi of Tc 99m MAA, ventilation and perfusion images are acquired post injection in multiple projections. FINDINGS: There are no sizable mismatched ventilation/perfusion defects. Small matched defect involving the valeri g apex on the anterior view appears artifactual IMPRESSION: Low probability for pulmonary embolus
[2020-06-26] MEDS: SODIUM CHLORIDE 0.9% 1,000 ML IV SCH ×2 (15:38→19:57)
[2020-06-26] MEDS: PANTOPRAZOLE 40 MG/10 ML VIAL IVP SCH ×2 (15:39→19:56)
[2020-06-26] MEDS: HEPARIN SODIUM,PORCINE 5,000 UNIT/ML 1 ML VIAL SQ SCH ×2 (15:39→19:56)
--- NOTE | 2020-06-26 15:44 | HP ---
HISTORY AND PHYSICAL DATE OF SERVICE: 06/26/2020 CHIEF COMPLAINTS: Shortness of breath, weakness, diarrhea; multiple complaints. HISTORY OF PRESENT ILLNESS: This 65-year-old gentleman with a past medical history of multiple medical problems, including diabetes mellitus, hypertension, hyperlipidemia, history of renal disorder, history of sleep apnea, being followed by Dr. Nicholson in the outpatient setting, recently had TURP by Dr. Jimenez 2 weeks ago. Postoperatively the patient had CPAP issues. The patient had respiratory failure. The patient was mechanically ventilated overnight and discharged the next day after improving. Lasix was also given during that admission. After going home, the patient was feeling initially better, but subsequently he had multiple symptomatology, including increasing shortness of breath, some abdominal discomfort, not feeling well, diarrhea, loss of appetite. The patient came to [facility] and was found to have possible UTI with possible early sepsis. The patient also had a chest x-ray showing increased bronchovascular markings. Also troponin was indeterminate. The creatinine has also worsened to 3.27 currently from the baseline 2 levels. There is no history of any fever, rigor or chills. No history of headache, loss of consciousness, seizures at this time. PAST MEDICAL HISTORY: Recent TURP, diabetes mellitus, hypertension, hyperlipidemia, history of DJD, history of CAD, stent. HOME MEDICATIONS: 1. Zestril 2.5 mg daily. 2. Glucotrol 10 mg daily. 3. Valium 5 mg b.i.d. p.r.n. 4. Flomax 0.4 daily. 5. Actos 30 mg p.o. daily. 6. Nitrostat 0.4 sublingually p.r.n. 7. Proscar 5 mg p.o. daily. 8. Vitamin D2 50,000 q.30 days. 9. Glyxambi 1 tablet p.o. daily. 10.Lipitor 80 mg at bedtime. 11.Aspirin 81 mg p.o. daily. ALLERGIES: NONE. FAMILY HISTORY: History of diabetes mellitus, hypertension, varicose veins in the family. SOCIAL HISTORY: Previous history of smoking. No history of alcohol intake. REVIEW OF SYSTEMS: ENT: No diminished hearing. No diminished vision. CARDIOVASCULAR SYSTEM: No angina, palpitations. Otherwise as mentioned earlier. RESPIRATORY SYSTEM: As mentioned earlier. GI: As mentioned earlier. : As mentioned earlier. NERVOUS SYSTEM: No numbness, weakness. ALLERGY/IMMUNOLOGY: No asthma, hayfever. MUSCULOSKELETAL: As mentioned earlier. HEMATOLOGY/ONCOLOGY: No history of anemia. ENDOCRINE: As mentioned earlier. CONSTITUTIONAL: As mentioned earlier. DERMATOLOGY: Negative. RHEUMATOLOGY: Negative. PSYCHIATRY: As mentioned earlier. PHYSICAL EXAMINATION: Patient alert and oriented x3. Pulse is 91, blood pressure 92/64, respiration 20, temperature 99.4, T-max 100.5, pulse ox 100% on 2 L. HEENT: Conjunctivae normal. Oral mucosa moist. NECK: Obese. CARDIOVASCULAR SYSTEM: S1, S2 muffled. RESPIRATORY SYSTEM: Breath sounds diminished at the bases. Bilateral scattered rhonchi and crackles. Expiratory wheezing also present. ABDOMEN: Soft, obese, non-tender. No mass palpable. LEGS: Minimal bilateral leg edema. NERVOUS SYSTEM: Higher functions as mentioned earlier. Moves all 4 limbs. No focal motor or sensory deficit. LYMPHATICS: No lymph node palpable in neck, axillae or groin. SKIN: No ulcer, rash, bleeding. JOINTS: No active deforming arthropathy. LABS: WBC 17.2. D-dimer is 5.23. Sodium is 132. Creatinine is to 3.27. Troponin 0.045. UA noted. ASSESSMENT: 1. Acute urinary tract infection with sepsis, present on admission. 2. Renal failure, acute on chronic renal failure with chronic kidney disease, stage 3 baseline. 3. History of recent transurethral resection of prostate. 4. Diarrhea for evaluation. Rule out C difficile colitis. 5. Hyponatremia. 6. Increased white count. 7. Elevated D-dimer. Rule out pulmonary embolism. 8. Elevated random blood glucose. 9. Troponin 0.04, indeterminate. Rule out acute [id number]-elevation myocardial infarction. 10.History of hypertension. 11.Hyperlipidemia. 12.Diabetes mellitus, type 2. 13.History of renal disease. 14.History of sleep apnea, on CPAP. 15.History of coronary artery disease, stent. 16.Remote history of nicotine dependence. 17.Obesity with body mass index of 42.8. 18.FULL CODE. RECOMMENDATIONS AND DISCUSSION: In this 65-year-old gentleman who presented with multiple complex medical issues, we will monitor the patient closely, continue the current medications, continue with symptomatic treatment. I recommend recommend broad-spectrum IV antibiotics. Recommend cultures. Infectious disease evaluation. Empiric antibiotics. Stool for C difficile. I would also recommend a V/Q scan. Also recommend a CT scan of the abdomen, chest, pelvis without any contrast. Two-D echo with Doppler will be ordered. Cardiology consultation has also been sought. COVID-19 has been requested. Resume the home medications. Avoid nephrotoxic medication. Will monitor the Accu-Cheks and continue with Accu-Cheks before meals and at bedtime currently. Prognosis guarded. Further recommendations to follow. A copy of this dictation is being forwarded to Dr. Nicholson, who is the primary physician. MMODL / IJN: [id number] /
[2020-06-26] MEDS ORDERED: PNEUMOCOCCAL VACC-PNEUMOVAX 23 25 MCG/0.5 ML VIAL IM ONE (15:52)
[2020-06-26 16:57] LABS: Glucose,Whole Blood 121 mg/dL (75-99)
[2020-06-26] MEDS: INSULIN ASPART (NovoLOG) 100 UNIT/ML VIAL SQ SCH ×2 (17:13→20:40)
--- NOTE | 2020-06-26 17:43 | CT ---
EXAMINATION TYPE: CT ChestAbdPelvis wo con DATE OF EXAM: 06/26/2020 COMPARISON: None HISTORY: Sepsis CT DLP: 2064.8 mGycm Automated exposure control for dose reduction was used. Images were obtained from the thoracic inlet to the floor the pelvis with no contrast. The lungs are clear of consolidation. There is no evidence of a pulmonary mass. There is no pleural e ffusion. There is no pericardial effusion. There are multiple mediastinal lymph nodes that measure up to 12 mm. There are no hilar masses. There is coronary artery calcification. There is 11 cm rounded area of hypodensity in the superior right lobe of the liver. Gallbladder is sl ightly contracted. The bile ducts are not dilated. Spleen is intact. There is no pancreatic mass. Sto mach is intact. There is no adrenal mass. Kidneys have normal size. There is 8mm calculus lower pole right kidney. Th ere is no hydronephrosis. Ureters are not dilated. There is some mild perinephric edema that is worse on the right side. There is mild edema around the anterior right psoas muscle. The bladder distends smoothly. There is some deformity of the prostate gland with air bubbles at could relate to recent leon rgery. There is diverticulum of the fundus of the urinary bladder. Diverticula measures 4 cm. There i s some intramural air in the urinary bladder on the anterior wall. Thoracic and lumbar spine are intact. There is no compression fracture. The bony pelvis is intact. Th e ribs appear intact. IMPRESSION: Large low density mass in the superior right lobe of the liver. I would consider possibilities of vicenta er abscess and less likely tumor. There is bilateral perinephric edema. Nonobstructing right renal calculus. Minimal right periureteral edema. Deformity of the urinary bladder as above with air bubbles intramural air. Correlation with p rostate surgery history recommended. In the absence of surgery the possibility of prostate abscess sh ould be considered. Bilateral pyelonephritis is possible.
[2020-06-26] MEDS: ATORVASTATIN 80 MG TAB PO SCH (19:56)
[2020-06-26] MEDS: TAMSULOSIN 0.4 MG CAP.ER.24H PO SCH (19:56)
[2020-06-26 20:24] LABS: Glucose,Whole Blood 213 mg/dL (75-99)
[2020-06-27 06:16] LABS: Glucose,Whole Blood 166 mg/dL (75-99)
[2020-06-27] MEDS: INSULIN ASPART (NovoLOG) 100 UNIT/ML VIAL SQ SCH ×4 (06:32→19:59)
[2020-06-27] MEDS: SODIUM CHLORIDE 0.9% 1,000 ML IV SCH ×2 (06:33→18:06)
[2020-06-27 07:19] LABS: Basophils % (A) 0 %; Eosinophils % (A) 0 %; HCT 40.2 % (39.0-53.0); HGB 12.7 gm/dL (13.0-17.5); Lymphocytes # (A) 0.8 k/uL (1.0-4.8); Lymphocytes % (A) 5 %; MCH 28.8 pg (25.0-35.0); MCHC 31.5 g/dL (31.0-37.0); MCV 91.3 fL (80.0-100.0); Mean Platelet Volume 7.5; Monocytes # (A) 0.8 k/uL (0-1.0); Monocytes % (A) 5 %; Neutrophils % (A) 87 %; Platelet Count 438 k/uL (150-450); WBC 14.8 k/uL (3.8-10.6)
[2020-06-27 07:23] LABS: Albumin 2.8 g/dL (3.5-5.0); Calcium 7.8 mg/dL (8.4-10.2); Potassium 4.6 mmol/L (3.5-5.1); Total Bilirubin 0.9 mg/dL (0.2-1.3); Total Protein 6.3 g/dL (6.3-8.2)
--- NOTE | 2020-06-27 07:55 | P.CRDCN ---
History of Present Illness Consult date: 06/27/20 Chief complaint: Shortness of breath History of present illness: This is a pleasant 65-year-old gentleman who was a patient of Dr. VC Aquino in t he past with extensive medical history consistent of coronary artery disease and prior coronary stenting of the diagonal, diabetes type 2, dyslipidemia, and chronic kidney disease who presented to the hospital complaining of shortness of breath. The patient underwent a TURP two weeks ago with the surgery complicated with what it seems to be acute hypoxic respiratory failure and required mechanical ventilation for few days. After that he was discharged home in stable medical conditions. This time the patient presented to the hospital not feeling well. He described shortness of breath without any symptoms of chest pain or chest discomfort. No dizziness or lightheadedness, heart racing or fluttering, or syncope. No lower extremities edema. No fever or chills. He underwent a workup in the emergency department including d-dimer which came in to be abnormal but subsequently VQ scan came in to be with no problem Bagley for PE. The chest x-ray did not show any acute abnormalities. The creatinine came in to be elevated. Beside that the patient had a blood culture came in to be positive for gram-negative bacilli in rods. Currently he is on antibiotic. The blood pressure has been marginally low. The troponin is a slightly elevated but please note that his creatinine is 3.88 was GFR of 15. He is chest pain-free. The EKG showed sinus rhythm without any significant ST or T-wave abnormalities. In 2017 the patient was admitted to the hospital with a chest discomfort and at that point he underwent a heart catheterization and was found to have severe disease involving the RCA as well as second diagonal branch of the LAD. He underwent successful stenting of the second diagonal branch of the LAD. The echocardiogram from 2017 showed normal left ventricular systolic function. Past Medical History Past Medical History: Coronary Artery Disease (CAD), CVA/TIA, Diabetes Mellitus, Hyperlipidemia, Hypertension, Prostate Disorder, Renal Disease, Sleep Apnea/CPAP/BIPAP Additional Past Medical History / Comment(s): 2017 BPH with urinary retention/intermittent self cathing-hydornephrosis/had TURP 06/10/20 and had to be re-intubated in recovery room/vented and sent to ICU-pt states he still self caths occasionally, UTIs, vertigo/work up showed 3 prior CVAs per pt, NIDDM type II, History of Any Multi-Drug Resistant Organisms: None Reported Past Surgical History: Heart Catheterization With Stent Additional Past Surgical History / Comment(s): 06/10/20 TURP, 2016 PCI with stent, R mid finger partial amp, colonoscopy with benign colonoscopy. Past Anesthesia/Blood Transfusion Reactions: No Reported Reaction Additional Past Anesthesia/Blood Transfusion Reaction / Comment(s): 06/10/20 pt had TURP, was re-intubated/vented in recovery room. Date of Last Stent Placement:: 09-02-16 Smoking Status: Former smoker - Past Family History Mother Family Medical History: Diabetes Mellitus, Hypertension Additional Family Medical History / Comment(s): varicose veins Father Family Medical History: Hyperlipidemia, Hypertension Additional Family Medical History / Comment(s): enlarged heart with leaky valve Medications and Allergies Home Medications Medication Instructions Recorded Confirmed Type Aspirin 81 mg PO DAILY 08/29/16 06/26/20 History Tamsulosin [Flomax] 0.4 mg PO BID 08/29/16 06/26/20 History Nitroglycerin Sl Tabs [Nitrostat] 0.4 mg SUBLINGUAL Q5M PRN #25 tab 09/03/16 06/26/20 Rx Atorvastatin [Lipitor] 80 mg PO HS 04/17/17 06/26/20 History Finasteride [Proscar] 5 mg PO DAILY 04/17/17 06/26/20 History lisinopriL [Zestril] 2.5 mg PO DAILY 04/17/17 06/26/20 History diazePAM [Valium] 5 mg PO BID PRN #6 tab 04/20/17 06/26/20 Rx Empagliflozin/Linagliptin 1 tab PO DAILY 06/05/20 06/26/20 History [Glyxambi 10 mg-5 mg Tablet] Ergocalciferol [Vitamin D2] 50,000 unit PO Q30D 06/05/20 06/26/20 History Pioglitazone [Actos] 30 mg PO DAILY 06/05/20 06/26/20 History glipiZIDE [Glucotrol] 10 mg PO AC-BRKFST 06/05/20 06/26/20 History Allergies Allergy/AdvReac Type Severity Reaction Status Date / Time No Known Allergies Allergy Verified 06/26/20 12:39 Physical Exam Vitals: Vital Signs Temp Pulse Pulse Resp BP BP Pulse Ox 06/27/20 04:00 98.3 F 100 18 90/50 98 06/26/20 23:58 110 H 20 06/26/20 23:54 98.6 F 110 H 20 94/62 95 06/26/20 20:00 98.7 F 114 H 20 102/70 98 06/26/20 16:00 97.8 F 86 16 103/71 100 06/26/20 15:47 98.3 F 84 19 100/69 98 06/26/20 13:03 99.4 F 91 20 93/64 100 06/26/20 11:18 100.5 F H 92 24 99/66 99 Intake and Output 06/26/20 06/27/20 06/27/20 22:59 06:59 14:59 Intake Total 240 Output Total 24 Balance 216 Intake: Oral 240 Output: Post Void Residual 24 Other: Voiding Method Self-Catheterization Self-Catheterization # Voids 2 2 Weight 135.171 kg - Constitutional General appearance: no acute distress - Respiratory Respiratory: bilateral: CTA - Cardiovascular Rhythm: regular Heart sounds: normal: S1, S2 Results 06/27/20 06:16 06/27/20 06:16 Cardiac Enzymes 06/26/20 06/26/20 06/27/20 Range/Units 11:56 11:56 06:16 AST 47 56 (17-59) U/L Troponin I 0.045 H* (0.000-0.034) ng/mL Coagulation 06/26/20 Range/Units 11:56 PT 10.9 (9.0-12.0) sec APTT 25.5 (22.0-30.0) sec CBC 06/26/20 06/27/20 Range/Units 11:56 06:16 WBC 17.2 H 14.8 H (3.8-10.6) k/uL RBC 4.79 4.40 (4.30-5.90) m/uL Hgb 14.1 12.7 L (13.0-17.5) gm/dL Hct 44.1 40.2 (39.0-53.0) % Plt Count 454 H 438 (150-450) k/uL Comprehensive Metabolic Panel 06/26/20 06/27/20 Range/Units 11:56 06:16 Sodium 132 L 128 L (137-145) mmol/L Potassium 4.6 4.6 (3.5-5.1) mmol/L Chloride 97 L 99 (98-107) mmol/L Carbon Dioxide 21 L 17 L (22-30) mmol/L BUN 37 H 45 H (9-20) mg/dL Creatinine 3.27 H 3.88 H (0.66-1.25) mg/dL Glucose 118 H 144 H (74-99) mg/dL Calcium 8.5 7.8 L (8.4-10.2) mg/dL AST 47 56 (17-59) U/L ALT 41 53 H (4-49) U/L Alkaline Phosphatase 156 H 153 H (38-126) U/L Total Protein 6.8 6.3 (6.3-8.2) g/dL Albumin 3.1 L 2.8 L (3.5-5.0) g/dL Current Medications Generic Name Dose Route Start Last Admin Trade Name Freq PRN Reason Stop Dose Admin Hydrocodone Bitart/Acetaminophen 1 each 06/26/20 14:30 [place] 5-325 PO Q6HR PRN Pain Aspirin 81 mg 06/27/20 09:00 Aspirin PO DAILY [facility] Atorvastatin Calcium 80 mg 06/26/20 21:00 06/26/20 19:56 Lipitor PO 80 mg HS RICHA Administration Diazepam 5 mg 06/26/20 14:26 Valium PO BID PRN Motion Sickness Ergocalciferol 50,000 unit 07/20/20 09:00 Vitamin D2 PO Q30D [facility] Finasteride 5 mg 06/27/20 09:00 Proscar PO DAILY [facility] Heparin Sodium (Porcine) 5,000 unit 06/26/20 14:30 06/26/20 19:56 Heparin SQ 5,000 unit Q12HR RICHA Administration Hydromorphone HCl 0.5 mg 06/26/20 14:30 Dilaudid IVP Q3HR PRN Severe Pain Ceftriaxone Sodium 1 gm/ 50 mls @ 100 mls/hr 06/27/20 06:00 06/27/20 06:32 Sodium Chloride IVPB 100 mls/hr Q12H RICHA Administration Sodium Chloride 1,000 mls @ 130 mls/hr 06/26/20 14:15 06/27/20 06:33 Saline 0.9% IV 130 mls/hr .Q7H42M RICHA Administration Insulin Aspart 0 unit 06/26/20 17:30 06/27/20 06:32 Novolog SQ 2 unit ACHS RICHA Administration Protocol Iopamidol 30 ml 06/26/20 14:37 Isovue-300 (For Oral Use) PO 06/27/20 14:[address] Scan Naloxone HCl 0.2 mg 06/26/20 14:02 Narcan IV Q2M PRN Opioid Reversal Nitroglycerin 0.4 mg 06/26/20 14:26 Nitrostat SUBLINGUAL Q5M PRN Chest Pain Pantoprazole Sodium 40 mg 06/26/20 14:30 06/26/20 19:56 Protonix IVP 40 mg BID RICHA Administration Pioglitazone HCl 30 mg 06/27/20 09:00 Actos PO DAILY RICHA Tamsulosin HCl 0.4 mg 06/26/20 21:00 06/26/20 19:56 Flomax PO 0.4 mg BID RICHA Administration Temazepam 15 mg 06/26/20 14:30 Restoril PO HS PRN Insomnia Intake and Output 06/26/20 06/27/20 06/27/20 22:59 06:59 14:59 Intake Total 240 Output Total 24 Balance 216 Intake: Oral 240 Output: Post Void Residual 24 Other: Voiding Method Self-Catheterization Self-Catheterization # Voids 2 2 Weight 135.171 kg 06/27/20 06:16 06/27/20 06:16 Assessment and Plan Assessment: Assessment #1 urosepsis #2 acute on chronic renal failure #3 mildly elevated troponin #4 coronary artery disease #5 status post TURP #6 multiple comorbid conditions Plan #1 severe medical treatment for the mildly abnormal troponin in the absence of any chest pain or chest discomfort or ischemic ST or T-wave abnormalities and also in view of the acute renal failure #2 continue the current medical regimen including aspirin as well as a statin #3 I would advise transfer the patient to the intensive care unit #4 We will repeat the echo to assess for wall motion abnormalities and also for the EF #5 the patient does not seem in any overt congestive heart failure #6 follow-up with the patient
[2020-06-27] MEDS: HEPARIN SODIUM,PORCINE 5,000 UNIT/ML 1 ML VIAL SQ SCH ×2 (09:26→19:48)
[2020-06-27] MEDS: FINASTERIDE 5 MG TAB PO SCH (09:26)
[2020-06-27] MEDS: TAMSULOSIN 0.4 MG CAP.ER.24H PO SCH ×2 (09:26→19:48)
[2020-06-27] MEDS: ASPIRIN 81 MG PO SCH (09:26)
[2020-06-27] MEDS: PANTOPRAZOLE 40 MG/10 ML VIAL IVP SCH ×2 (09:26→19:49)
[2020-06-27] MEDS: PIOGLITAZONE 30 MG TAB PO SCH (09:27)
--- NOTE | 2020-06-27 09:58 | P.GSCN ---
History of Present Illness Consult date: 06/27/20 Reason for Consult: UTI, difficulty breathing Requesting physician: Rafael Arias History of present illness: The patient is a 65-year-old white male well known to Dr. Jimenez. He underwent a TURP for urinary retention on 06/10/2020. The patient developed pulmonary edema postoperatively. The Jaquez catheter was removed on 06/12/2020. He contacted Dr. Jimenez yesterday, reporting shortness of breath, and was advised to go to the emergency room. He was subsequently admitted. Urinalysis is suggestive of a UTI. A urine culture is pending, both blood cultures of shown gram-negative bacilli. He is afebrile. He continues to perform intermittent self- catheterization. He states that he is emptying his bladder somewhat better, but that his voiding symptoms are unchanged following the TURP. Specifically, he continues to experience urinary frequency and urgency. Review of Systems - Constitutional Reports chills, Reports sweats - Respiratory Reports dyspnea Past Medical History Past Medical History: Coronary Artery Disease (CAD), CVA/TIA, Diabetes Mellitus, Hyperlipidemia, Hypertension, Prostate Disorder, Renal Disease, Sleep Apnea/CPAP/BIPAP Additional Past Medical History / Comment(s): 2017 BPH with urinary retention/intermittent self cathing-hydornephrosis/had TURP 06/10/20 and had to be re-intubated in recovery room/vented and sent to ICU-pt states he still self caths occasionally, UTIs, vertigo/work up showed 3 prior CVAs per pt, NIDDM type II, History of Any Multi-Drug Resistant Organisms: None Reported Past Surgical History: Heart Catheterization With Stent Additional Past Surgical History / Comment(s): 06/10/20 TURP, 2016 PCI with stent, R mid finger partial amp, colonoscopy with benign colonoscopy. Past Anesthesia/Blood Transfusion Reactions: No Reported Reaction Additional Past Anesthesia/Blood Transfusion Reaction / Comm: 06/10/20 pt had TURP, was re-intubated/vented in recovery room. Date of Last Stent Placement:: 09-02-16 Smoking Status: Former smoker - Past Family History Mother Family Medical History: Diabetes Mellitus, Hypertension Additional Family Medical History / Comment(s): varicose veins Father Family Medical History: Hyperlipidemia, Hypertension Additional Family Medical History / Comment(s): enlarged heart with leaky valve Medications and Allergies Home Medications Medication Instructions Recorded Confirmed Type Aspirin 81 mg PO DAILY 08/29/16 06/26/20 History Tamsulosin [Flomax] 0.4 mg PO BID 08/29/16 06/26/20 History Nitroglycerin Sl Tabs [Nitrostat] 0.4 mg SUBLINGUAL Q5M PRN #25 tab 09/03/16 06/26/20 Rx Atorvastatin [Lipitor] 80 mg PO HS 04/17/17 06/26/20 History Finasteride [Proscar] 5 mg PO DAILY 04/17/17 06/26/20 History lisinopriL [Zestril] 2.5 mg PO DAILY 04/17/17 06/26/20 History diazePAM [Valium] 5 mg PO BID PRN #6 tab 04/20/17 06/26/20 Rx Empagliflozin/Linagliptin 1 tab PO DAILY 06/05/20 06/26/20 History [Glyxambi 10 mg-5 mg Tablet] Ergocalciferol [Vitamin D2] 50,000 unit PO Q30D 06/05/20 06/26/20 History Pioglitazone [Actos] 30 mg PO DAILY 06/05/20 06/26/20 History glipiZIDE [Glucotrol] 10 mg PO AC-BRKFST 06/05/20 06/26/20 History Allergies Allergy/AdvReac Type Severity Reaction Status Date / Time No Known Allergies Allergy Verified 06/26/20 12:39 Surgical - Exam Vital Signs Temp Pulse Resp BP Pulse Ox 100.5 F H 92 24 99/66 99 06/26/20 11:18 06/26/20 11:18 06/26/20 11:18 06/26/20 11:18 06/26/20 11:18 - General well developed, well nourished, no distress - Abdomen Abdomen: soft, non tender, no guarding, no rigid, no rebound Hernia: umbilical - Genitourinary normal penis with no external lesions, testicles non-tender - Psychiatric oriented to time, oriented to person, oriented to place, speech is normal, memory intact Results - Labs 06/27/20 06:16 06/27/20 06:16 Abnormal Lab Results - Last 24 Hours (Table) 06/26/20 06/26/20 06/26/20 Range/Units 11:56 11:56 11:56 WBC 17.2 H (3.8-10.6) k/uL Hgb (13.0-17.5) gm/dL Plt Count 454 H (150-450) k/uL Neutrophils # 14.9 H (1.3-7.7) k/uL Lymphocytes # (1.0-4.8) k/uL D-Dimer 5.23 H (<0.60) mg/L FEU Sodium 132 L (137-145) mmol/L Chloride 97 L (98-107) mmol/L Carbon Dioxide 21 L (22-30) mmol/L BUN 37 H (9-20) mg/dL Creatinine 3.27 H (0.66-1.25) mg/dL Glucose 118 H (74-99) mg/dL POC Glucose (mg/dL) (75-99) mg/dL Calcium (8.4-10.2) mg/dL ALT (4-49) U/L Alkaline Phosphatase 156 H (38-126) U/L Troponin I (0.000-0.034) ng/mL Albumin 3.1 L (3.5-5.0) g/dL Urine Protein (Negative) Urine Glucose (UA) (Negative) Urine Blood (Negative) Ur Leukocyte Esterase (Negative) Urine RBC (0-5) /hpf Urine WBC (0-5) /hpf Urine WBC Clumps (None) /hpf Urine Bacteria (None) /hpf 06/26/20 06/26/20 06/26/20 Range/Units 11:56 11:56 16:56 WBC (3.8-10.6) k/uL Hgb (13.0-17.5) gm/dL Plt Count (150-450) k/uL Neutrophils # (1.3-7.7) k/uL Lymphocytes # (1.0-4.8) k/uL D-Dimer (<0.60) mg/L FEU Sodium (137-145) mmol/L Chloride (98-107) mmol/L Carbon Dioxide (22-30) mmol/L BUN (9-20) mg/dL Creatinine (0.66-1.25) mg/dL Glucose (74-99) mg/dL POC Glucose (mg/dL) 121 H (75-99) mg/dL Calcium (8.4-10.2) mg/dL ALT (4-49) U/L Alkaline Phosphatase (38-126) U/L Troponin I 0.045 H* (0.000-0.034) ng/mL Albumin (3.5-5.0) g/dL Urine Protein 3+ H (Negative) Urine Glucose (UA) 3+ H (Negative) Urine Blood Moderate H (Negative) Ur Leukocyte Esterase Large H (Negative) Urine RBC 31 H (0-5) /hpf Urine WBC >182 H (0-5) /hpf Urine WBC Clumps Many H (None) /hpf Urine Bacteria Many H (None) /hpf 06/26/20 06/27/20 06/27/20 Range/Units 20:22 06:15 06:16 WBC (3.8-10.6) k/uL Hgb (13.0-17.5) gm/dL Plt Count (150-450) k/uL Neutrophils # (1.3-7.7) k/uL Lymphocytes # (1.0-4.8) k/uL D-Dimer (<0.60) mg/L FEU Sodium 128 L (137-145) mmol/L Chloride (98-107) mmol/L Carbon Dioxide 17 L (22-30) mmol/L BUN 45 H (9-20) mg/dL Creatinine 3.88 H (0.66-1.25) mg/dL Glucose 144 H (74-99) mg/dL POC Glucose (mg/dL) 213 H 166 H (75-99) mg/dL Calcium 7.8 L (8.4-10.2) mg/dL ALT 53 H (4-49) U/L Alkaline Phosphatase 153 H (38-126) U/L Troponin I (0.000-0.034) ng/mL Albumin 2.8 L (3.5-5.0) g/dL Urine Protein (Negative) Urine Glucose (UA) (Negative) Urine Blood (Negative) Ur Leukocyte Esterase (Negative) Urine RBC (0-5) /hpf Urine WBC (0-5) /hpf Urine WBC Clumps (None) /hpf Urine Bacteria (None) /hpf 06/27/20 Range/Units 06:16 WBC 14.8 H (3.8-10.6) k/uL Hgb 12.7 L (13.0-17.5) gm/dL Plt Count (150-450) k/uL Neutrophils # 13.0 H (1.3-7.7) k/uL Lymphocytes # 0.8 L (1.0-4.8) k/uL D-Dimer (<0.60) mg/L FEU Sodium (137-145) mmol/L Chloride (98-107) mmol/L Carbon Dioxide (22-30) mmol/L BUN (9-20) mg/dL Creatinine (0.66-1.25) mg/dL Glucose (74-99) mg/dL POC Glucose (mg/dL) (75-99) mg/dL Calcium (8.4-10.2) mg/dL ALT (4-49) U/L Alkaline Phosphatase (38-126) U/L Troponin I (0.000-0.034) ng/mL Albumin (3.5-5.0) g/dL Urine Protein (Negative) Urine Glucose (UA) (Negative) Urine Blood (Negative) Ur Leukocyte Esterase (Negative) Urine RBC (0-5) /hpf Urine WBC (0-5) /hpf Urine WBC Clumps (None) /hpf Urine Bacteria (None) /hpf Microbiology - Last 24 Hours (Table) 06/26/20 11:56 Blood Culture Gram Stain - Preliminary Blood 06/26/20 11:56 Blood Culture - Final Blood 06/26/20 11:56 Urine Culture - Preliminary Urine,Catheterized Diabetes panel 06/26/20 06/27/20 Range/Units 11:56 06:16 Sodium 132 L 128 L (137-145) mmol/L Potassium 4.6 4.6 (3.5-5.1) mmol/L Chloride 97 L 99 (98-107) mmol/L Carbon Dioxide 21 L 17 L (22-30) mmol/L BUN 37 H 45 H (9-20) mg/dL Creatinine 3.27 H 3.88 H (0.66-1.25) mg/dL Glucose 118 H 144 H (74-99) mg/dL Calcium 8.5 7.8 L (8.4-10.2) mg/dL AST 47 56 (17-59) U/L ALT 41 53 H (4-49) U/L Alkaline Phosphatase 156 H 153 H (38-126) U/L Total Protein 6.8 6.3 (6.3-8.2) g/dL Albumin 3.1 L 2.8 L (3.5-5.0) g/dL Calcium panel 06/26/20 06/27/20 Range/Units 11:56 06:16 Calcium 8.5 7.8 L (8.4-10.2) mg/dL Albumin 3.1 L 2.8 L (3.5-5.0) g/dL Pituitary panel 06/26/20 06/27/20 Range/Units 11:56 06:16 Sodium 132 L 128 L (137-145) mmol/L Potassium 4.6 4.6 (3.5-5.1) mmol/L Chloride 97 L 99 (98-107) mmol/L Carbon Dioxide 21 L 17 L (22-30) mmol/L BUN 37 H 45 H (9-20) mg/dL Creatinine 3.27 H 3.88 H (0.66-1.25) mg/dL Glucose 118 H 144 H (74-99) mg/dL Calcium 8.5 7.8 L (8.4-10.2) mg/dL Adrenal panel 06/26/20 06/27/20 Range/Units 11:56 06:16 Sodium 132 L 128 L (137-145) mmol/L Potassium 4.6 4.6 (3.5-5.1) mmol/L Chloride 97 L 99 (98-107) mmol/L Carbon Dioxide 21 L 17 L (22-30) mmol/L BUN 37 H 45 H (9-20) mg/dL Creatinine 3.27 H 3.88 H (0.66-1.25) mg/dL Glucose 118 H 144 H (74-99) mg/dL Calcium 8.5 7.8 L (8.4-10.2) mg/dL Total Bilirubin 1.1 0.9 (0.2-1.3) mg/dL AST 47 56 (17-59) U/L ALT 41 53 H (4-49) U/L Alkaline Phosphatase 156 H 153 H (38-126) U/L Total Protein 6.8 6.3 (6.3-8.2) g/dL Albumin 3.1 L 2.8 L (3.5-5.0) g/dL Assessment and Plan (1) Benign prostatic hyperplasia with lower urinary tract symptoms Current Visit: Yes Status: Acute Code(s): N40.1 - BENIGN PROSTATIC HYPERPLASIA WITH LOWER URINARY TRACT SYMP SNOMED Code(s): 734638182 (2) Urinary tract infection Current Visit: Yes Status: Acute Code(s): N39.0 - URINARY TRACT INFECTION, SITE NOT SPECIFIED SNOMED Code(s): 30641707 Plan: Continue Rocephin, pending the urine culture results. Bladder scan will be utilized to assess bladder emptying.
--- NOTE | 2020-06-27 10:09 | P.NPCON ---
History of Present Illness - Reason for Consult acute renal failure, chronic renal failure - History of Present Illness Reason for consultation: Acute kidney injury on chronic kidney disease History of present illness: Patient is a 65-year-old male seen in renal consultation for acute kidney injury on chronic kidney disease. Patient has chronic kidney disease stage III with baseline creatinine in the range of 1.5-2. Patient presented to the hospital with shortness of breath. He is currently on 2 L nasal cannula and states shortness of breath is mostly resolved. Patient's blood pressure has been low in the systolic 90s. This morning it was 118/67. He is maintained on normal saline at 1 30 mL an hour. He does have edema in the lower extremity is. Denies vomiting or diarrhea. She states she underwent TURP on June 10. He has chronic urinary retention and has been performing self catheterizations 4-5 times daily for the last 4 years. Patient's creatinine was 3.27 on admission and is 3.88 today. No fever or chills. He is noted to have a urinary tract infection. Patient's blood cultures positive for gram-negative rods. He is maintained on IV antibiotics. Appetite is fair. Denies use of nonsteroidals. He does have long-standing history of diabetes mellitus. Vital signs are stable. General: The patient appeared well nourished and normally developed. HEENT: Head exam is unremarkable. Neck is without jugular venous distension. LUNGS: Breath sounds decreased. HEART: Rate and Rhythm are regular. ABDOMEN: Soft, nontender. Obese. EXTREMITITES: 1+ edema. Past Medical History Past Medical History: Coronary Artery Disease (CAD), CVA/TIA, Diabetes Mellitus, Hyperlipidemia, Hypertension, Prostate Disorder, Renal Disease, Sleep Apnea/C PAP/BIPAP Additional Past Medical History / Comment(s): 2017 BPH with urinary retention/intermittent self cathing-hydornephrosis/had TURP 06/10/20 and had to be re-intubated in recovery room/vented and sent to ICU-pt states he still self caths occasionally, UTIs, vertigo/work up showed 3 prior CVAs per pt, NIDDM type II, History of Any Multi-Drug Resistant Organisms: None Reported Past Surgical History: Heart Catheterization With Stent Additional Past Surgical History / Comment(s): 06/10/20 TURP, 2016 PCI with stent, R mid finger partial amp, colonoscopy with benign colonoscopy. Past Anesthesia/Blood Transfusion Reactions: No Reported Reaction Additional Past Anesthesia/Blood Transfusion Reaction / Comment(s): 06/10/20 pt had TURP, was re-intubated/vented in recovery room. Date of Last Stent Placement:: 09-02-16 Smoking Status: Former smoker - Past Family History Mother Family Medical History: Diabetes Mellitus, Hypertension Additional Family Medical History / Comment(s): varicose veins Father Family Medical History: Hyperlipidemia, Hypertension Additional Family Medical History / Comment(s): enlarged heart with leaky valve Medications and Allergies Home Medications Medication Instructions Recorded Confirmed Type Aspirin 81 mg PO DAILY 08/29/16 06/26/20 History Tamsulosin [Flomax] 0.4 mg PO BID 08/29/16 06/26/20 History Nitroglycerin Sl Tabs [Nitrostat] 0.4 mg SUBLINGUAL Q5M PRN #25 tab 09/03/16 06/26/20 Rx Atorvastatin [Lipitor] 80 mg PO HS 04/17/17 06/26/20 History Finasteride [Proscar] 5 mg PO DAILY 04/17/17 06/26/20 History lisinopriL [Zestril] 2.5 mg PO DAILY 04/17/17 06/26/20 History diazePAM [Valium] 5 mg PO BID PRN #6 tab 04/20/17 06/26/20 Rx Empagliflozin/Linagliptin 1 tab PO DAILY 06/05/20 06/26/20 History [Glyxambi 10 mg-5 mg Tablet] Ergocalciferol [Vitamin D2] 50,000 unit PO Q30D 06/05/20 06/26/20 History Pioglitazone [Actos] 30 mg PO DAILY 06/05/20 06/26/20 History glipiZIDE [Glucotrol] 10 mg PO AC-BRKFST 06/05/20 06/26/20 History Allergies Allergy/AdvReac Type Severity Reaction Status Date / Time No Known Allergies Allergy Verified 06/26/20 12:39 Physical Exam Vitals: Vital Signs Temp Pulse Pulse Resp BP BP Pulse Ox 06/27/20 08:30 98.9 F 93 18 118/67 97 06/27/20 04:00 98.3 F 100 18 90/50 98 06/26/20 23:58 110 H 20 06/26/20 23:54 98.6 F 110 H 20 94/62 95 06/26/20 20:00 98.7 F 114 H 20 102/70 98 06/26/20 16:00 97.8 F 86 16 103/71 100 06/26/20 15:47 98.3 F 84 19 100/69 98 06/26/20 13:03 99.4 F 91 20 93/64 100 06/26/20 11:18 100.5 F H 92 24 99/66 99 Intake and Output 06/26/20 06/27/20 06/27/20 22:59 06:59 14:59 Intake Total 240 240 Output Total 24 Balance 216 240 Intake: Oral 240 240 Output: Post Void Residual 24 Other: Voiding Method Self-Catheterization Self-Catheterization Toilet Self-Catheterization # Voids 2 2 2 Weight 135.171 kg Results - Lab Results Most recent lab results Calcium 7.8 mg/dL (8.4-10.2) L 06/27/20 06:16 Magnesium 2.1 mg/dL (1.6-2.3) 06/26/20 11:56 06/27/20 06:16 06/27/20 06:16 Assessment and Plan Plan: Assessment: 1. Acute kidney injury secondary to ATN secondary to severe sepsis. Creatinine 3.88 today. 2. Chronic kidney disease stage III with baseline creatinine the range of 1.5-2 secondary to chronic obstructive uropathy/urinary retention and diabetic kidney disease. 3. BPH status post TURP on June 10. Patient performs self catheterizations. 4. Severe sepsis secondary to UTI and gram-negative bacteremia. Maintain on IV antibiotics. 5. Hypervolemic hyponatremia. 6. Lower extremity edema. 7. Metabolic acidosis secondary to acute kidney injury and IV fluids. 8. Diabetes mellitus. Plan: Decrease normal saline to 50 mL an hour. 1500 mL fluid restriction. Add oral sodium bicarbonate. Follow-up cultures. Patient to resume self catheterizations. Continue to monitor renal function and urine output. Follow-up echocardiogram. Thank you for the consultation. I will continue to follow the patient with you during his hospital stay.
[2020-06-27 11:44] VITALS: BMI 42.7
[2020-06-27 12:02] LABS: Glucose,Whole Blood 144 mg/dL (75-99)
[2020-06-27] MEDS: SODIUM BICARBONATE TAB 650 MG TAB PO SCH ×3 (12:38→19:48)
--- NOTE | 2020-06-27 13:44 | P.CNPUL ---
History of Present Illness Consult date: 06/27/20 Reason for consult: dyspnea History of present illness: This is a 65-year-old white male with history of diabetes, hypertension, prostate disorder, obstructive sleep apnea syndrome maintained on CPAP/BiPAP. Patient was evaluated in 2016 by urology for elevated creatinine and bilateral hydronephrosis. Catheter drainage done and the patient developed significant improvement in his renal profile with creatinine down to 1.55. Patient continu es to have difficulty voiding, and this was managed with an indwelling catheter initially, then he was switched later on to intermittent catheterization in 2017. Patient was treated with a combination of finasteride and tamsulosin but he continued to have persistently elevated postvoid residual. Considering the persistent urinary retention, patient underwent TURP . Postoperatively, the patient developed what seemed to be hypoxic and hypercapnic respiratory failure with pulmonary edema. Patient was extubated reintubated postoperatively then every extubated and placed Echocardiogram in 2017 showed good LV function with ejection fraction of 55%. And there was no evidence of pulmonary hypertension. In 2016, patient had stenting of the second diagonal branch of the LAD done by Dr. Espinoza. The patient was discharged home. The patient continued to undergo self-catheterization. He came into the hospital again not feeling well. He was having some increased shortness of breath. He was having no dizziness or lightheadedness or heart fluttering. No chest pain. In the ED, the patient had a d-dimer that was abnormal. He was given a VQ scan did came back of a low probability for pulmonary embolism. Chest exit showed no acute abnormalities. His creatinine came back elevated. His UA was abnormal and the gram negative bacillus was also cultured in his blood. He was started on IV Rocephin. The blood pressure is marginally low at this point in time. His creatinine is up to 3.88. EKG showing a normal sinus mechanism. His white cell count is at 14.8. Sodium is at 128. The CAT scan of the abdomen and pelvis was done and showed a large low-density mass in the superior right lobe of the liver suspicious for an underlying abscess formation in the liver. There is also bilateral perinephric edema, nonobstructive right renal calculus, marginal right periurethral erythema and there is also deformity of the urinary bladder as well as air bubbles intramural air. Bilateral pyelonephritis was also considered. Review of Systems Constitutional: Reports fatigue, Reports fever, Reports weight gain Eyes: denies as per HPI, denies blurred vision, denies bulging eye, denies decreased vision, denies diplopia, denies discharge, denies dry eye, denies irritation, denies itching, denies pain, denies photophobia, denies loss of peripheral vision, denies loss of vision, denies tunnel vision/blind spots Ears: deny: decreased hearing, ear discharge, earache, tinnitus Ears, nose, mouth and throat: Denies headache, Denies sore throat Breasts: absent: as per HPI, gynecomastia Cardiovascular: Reports decreased exercise tolerance, Reports dyspnea on exertion, Reports leg edema, Reports shortness of breath Respiratory: Reports dyspnea, Reports snoring Gastrointestinal: Reports as per HPI Genitourinary: Reports incontinence, Reports kidney stones, Reports urinary frequency, Reports urinary hesitancy, Reports urinary retention Musculoskeletal: Reports as per HPI Musculoskeletal: bilateral: ankle swelling, absent: ankle pain, ankle stiffness Integumentary: Reports as per HPI Neurological: Reports as per HPI Psychiatric: Reports as per HPI Endocrine: Reports as per HPI, Reports fatigue Hematologic/Lymphatic: Reports as per HPI Allergic/Immunologic: Reports as per HPI Past Medical History Past Medical History: Coronary Artery Disease (CAD), CVA/TIA, Diabetes Mellitus, Hyperlipidemia, Hypertension, Prostate Disorder, Renal Disease, Sleep Apnea/CPAP/BIPAP Additional Past Medical History / Comment(s): 2017 BPH with urinary retention/intermittent self cathing-hydornephrosis/had TURP 06/10/20 and had to be re-intubated in recovery room/vented and sent to ICU-pt states he still self caths occasionally, UTIs, vertigo/work up showed 3 prior CVAs per pt, NIDDM type II, History of Any Multi-Drug Resistant Organisms: None Reported Past Surgical History: Heart Catheterization With Stent Additional Past Surgical History / Comment(s): 06/10/20 TURP, 2016 PCI with stent, R mid finger partial amp, colonoscopy with benign colonoscopy. Past Anesthesia/Blood Transfusion Reactions: No Reported Reaction Additional Past Anesthesia/Blood Transfusion Reaction / Comment(s): 06/10/20 pt had TURP, was re-intubated/vented in recovery room. Date of Last Stent Placement:: 09-02-16 Smoking Status: Former smoker - Past Family History Mother Family Medical History: Diabetes Mellitus, Hypertension Additional Family Medical History / Comment(s): varicose veins Father Family Medical History: Hyperlipidemia, Hypertension Additional Family Medical History / Comment(s): enlarged heart with leaky valve Medications and Allergies Home Medications Medication Instructions Recorded Confirmed Type Aspirin 81 mg PO DAILY 08/29/16 06/26/20 History Tamsulosin [Flomax] 0.4 mg PO BID 08/29/16 06/26/20 History Nitroglycerin Sl Tabs [Nitrostat] 0.4 mg SUBLINGUAL Q5M PRN #25 tab 09/03/16 06/26/20 Rx Atorvastatin [Lipitor] 80 mg PO HS 04/17/17 06/26/20 History Finasteride [Proscar] 5 mg PO DAILY 04/17/17 06/26/20 History lisinopriL [Zestril] 2.5 mg PO DAILY 04/17/17 06/26/20 History diazePAM [Valium] 5 mg PO BID PRN #6 tab 04/20/17 06/26/20 Rx Empagliflozin/Linagliptin 1 tab PO DAILY 06/05/20 06/26/20 History [Glyxambi 10 mg-5 mg Tablet] Ergocalciferol [Vitamin D2] 50,000 unit PO Q30D 06/05/20 06/26/20 History Pioglitazone [Actos] 30 mg PO DAILY 06/05/20 06/26/20 History glipiZIDE [Glucotrol] 10 mg PO AC-BRKFST 06/05/20 06/26/20 History Allergies Allergy/AdvReac Type Severity Reaction Status Date / Time No Known Allergies Allergy Verified 06/26/20 12:39 Physical Exam Vitals: Vital Signs Temp Pulse Pulse Resp BP BP Pulse Ox 06/27/20 12:00 98.7 F 91 19 113/72 95 06/27/20 08:30 98.9 F 93 18 118/67 97 06/27/20 04:00 98.3 F 100 18 90/50 98 06/26/20 23:58 110 H 20 06/26/20 23:54 98.6 F 110 H 20 94/62 95 06/26/20 20:00 98.7 F 114 H 20 102/70 98 06/26/20 16:00 97.8 F 86 16 103/71 100 06/26/20 15:47 98.3 F 84 19 100/69 98 Intake and Output 06/26/20 06/27/20 06/27/20 22:59 06:59 14:59 Intake Total 240 240 Output Total 24 Balance 216 240 Intake: Oral 240 240 Output: Post Void Residual 24 Other: Voiding Method Self-Catheterization Self-Catheterization Toilet Self-Catheterization # Voids 2 2 2 Weight 135.171 kg 135.171 kg Gen. appearance morbidly obese, comfortable likely distress. Head exam was generally normal. There was no scleral icterus or corneal arcus. Mucous membranes were moist. Neck was supple and without jugular venous distension, thyromegaly, or carotid bruits. Carotids were easily palpable bilaterally. There was no adenopathy. The patient is a Mallampati class IV with significant crowding of posterior pharynx Lungs were clear to auscultation and percussion, and with normal diaphragmatic excursion. No wheezes or rales were noted. Cardiac exam revealed the PMI to be normally situated and sized. The rhythm was regular and no extrasystoles were noted during several minutes of auscultation. The first and second heart sounds were normal and physiologic splitting of the second heart sound was noted. There were no murmurs, rubs, clicks, or gallops. AbAbdominal exam revealed normal bowel sounds. The abdomen was soft, non-tender, and without masses, organomegaly, or appreciable enlargement of the abdominal aorta Examination of the extremities revealed easily palpable radial, femoral and pedal pulses. There was no cyanosis, clubbing or edema. Examination of the skin revealed no evidence of significant rashes, suspicious appearing nevi or other concerning lesions. Neurologically, the patient is awake and alert and the patient does not have any focal neurological deficit. Cranial nerves are essentially intact. Results - Laboratory Findings CBC and BMP: 06/27/20 06:16 06/27/20 06:16 PT/INR, D-dimer PT 10.9 sec (9.0-12.0) 06/26/20 11:56 INR 1.1 (<1.2) 06/26/20 11:56 D-Dimer 5.23 mg/L FEU (<0.60) H 06/26/20 11:56 Abnormal lab findings: Abnormal Labs 06/26/20 06/26/20 06/26/20 11:56 11:56 11:56 WBC 17.2 H Hgb Plt Count 454 H Neutrophils # 14.9 H Lymphocytes # D-Dimer 5.23 H Sodium 132 L Chloride 97 L Carbon Dioxide 21 L BUN 37 H Creatinine 3.27 H Glucose 118 H POC Glucose (mg/dL) Calcium ALT Alkaline Phosphatase 156 H Troponin I Albumin 3.1 L Urine Protein Urine Glucose (UA) Urine Blood Ur Leukocyte Esterase Urine RBC Urine WBC Urine WBC Clumps Urine Bacteria 06/26/20 06/26/20 06/26/20 11:56 11:56 16:56 WBC Hgb Plt Count Neutrophils # Lymphocytes # D-Dimer Sodium Chloride Carbon Dioxide BUN Creatinine Glucose POC Glucose (mg/dL) 121 H Calcium ALT Alkaline Phosphatase Troponin I 0.045 H* Albumin Urine Protein 3+ H Urine Glucose (UA) 3+ H Urine Blood Moderate H Ur Leukocyte Esterase Large H Urine RBC 31 H Urine WBC >182 H Urine WBC Clumps Many H Urine Bacteria Many H 06/26/20 06/27/20 06/27/20 20:22 06:15 06:16 WBC Hgb Plt Count Neutrophils # Lymphocytes # D-Dimer Sodium 128 L Chloride Carbon Dioxide 17 L BUN 45 H Creatinine 3.88 H Glucose 144 H POC Glucose (mg/dL) 213 H 166 H Calcium 7.8 L ALT 53 H Alkaline Phosphatase 153 H Troponin I Albumin 2.8 L Urine Protein Urine Glucose (UA) Urine Blood Ur Leukocyte Esterase Urine RBC Urine WBC Urine WBC Clumps Urine Bacteria 06/27/20 06/27/20 06:16 12:00 WBC 14.8 H Hgb 12.7 L Plt Count Neutrophils # 13.0 H Lymphocytes # 0.8 L D-Dimer Sodium Chloride Carbon Dioxide BUN Creatinine Glucose POC Glucose (mg/dL) 144 H Calcium ALT Alkaline Phosphatase Troponin I Albumin Urine Protein Urine Glucose (UA) Urine Blood Ur Leukocyte Esterase Urine RBC Urine WBC Urine WBC Clumps Urine Bacteria Assessment and Plan Plan: 1 sepsis secondary to gram-negative bacteria. This is likely of a urinary source. Consider underlying pyelonephritis especially with the above-mentioned CAT scan images. Also, there is a concern of a liver abscess . The patient is hemodynamically stable. The patient is is afebrile. The patient has some mild leukocytosis. The patient on IV Rocephin. 2 liver mass/abscess, please refer to the CAT scan findings of the abdomen 3 acute on chronic kidney injury 4 chronic urinary retention secondary to BPH post TURP, the patient is still undergoing self-catheterization 5 chronic diastolic heart failure currently inactive in stable 6 morbid obesity with a BMI of 42.8 7 coronary artery disease with previous stent placement in 2016 8 obstructive sleep apnea 9 diabetes mellitus 10 hypertension 11 non-anion gap metabolic acidosis with a bicarb level of 17. The sodium level is at 128 12 mild leukocytosis 13 fever Plan Change Rocephin to 2 g every 24 hours regarding the gram-negative bacteremia IV fluids at 50 mL an hour Monitor renal function Continue with intermittent self-catheterization We'll need an intervention radiology consultation regarding the possibility of liver abscess for possible percutaneous drainage Will need a urology/nephrology consultation Pulmonary condition is stable. No evidence of any pulmonary embolism and the VQ scan is of a low probability. Chest x-rays clear. He shortness of breath is chronic and was further decompensated by sepsis and development of some metabolic acidosis. Echocardiogram Oral bicarb We'll continue to follow
[2020-06-27 16:59] LABS: Glucose,Whole Blood 141 mg/dL (75-99)
[2020-06-27] MEDS: ATORVASTATIN 80 MG TAB PO SCH (19:48)
[2020-06-27 19:56] LABS: Glucose,Whole Blood 139 mg/dL (75-99)
--- NOTE | 2020-06-28 00:53 | P.PN ---
Subjective Progress Note Date: 06/27/20 Principal diagnosis: Dyspnea Mr. Grissom is a 65-year-old male with history of hypertension, diabetes, prostate disorder, obstructive sleep apnea on CPAP, presenting with a chief complaint of difficulty in breathing. Patient recently had TURP by Dr. Jimenez, couple of weeks back and postoperatively the patient had respiratory failure was mechanically ventilated overnight and discharged the next day after improving. After going home patient felt better but subsequently developed increased difficulty in breathing and at the time of admission was found to have possible UTI and early sepsis so admitted for further management. Today the patient is lying in bed appears to be in no acute distress. Patient complains of generalized weakness. He also has difficulty in breathing with activity but better than when he came in. Denies having any chest pain or palpitations. Patient denies having any dysuria or hematuria. No abdominal pain nausea vomiting or diarrhea. On reviewing the labs patient's white count is 14.8, hemoglobin 12.7, sodium 128, potassium 4.6, chloride 99, bicarb 17, BUN 45, creatinine 3.88. Active Medications Hydrocodone Bitart/Acetaminophen ([place] 5-325) 1 each PO Q6HR PRN PRN Reason: Pain Aspirin (Aspirin) 81 mg PO DAILY [facility] Last Admin: 06/27/20 09:26 Dose: 81 mg Documented by: Atorvastatin Calcium (Lipitor) 80 mg PO HS [facility] Last Admin: 06/27/20 19:48 Dose: 80 mg Documented by: Diazepam (Valium) 5 mg PO BID PRN PRN Reason: Motion Sickness Ergocalciferol (Vitamin D2) 50,000 unit PO Q30D [facility] Finasteride (Proscar) 5 mg PO DAILY [facility] Last Admin: 06/27/20 09:26 Dose: 5 mg Documented by: Heparin Sodium (Porcine) (Heparin) 5,000 unit SQ Q12HR [facility] Last Admin: 06/27/20 19:48 Dose: 5,000 unit Documented by: Hydromorphone HCl (Dilaudid) 0.5 mg IVP Q3HR PRN PRN Reason: Severe Pain Sodium Chloride (Saline 0.9%) 1,000 mls @ 50 mls/hr IV .Q20H [facility] Last Admin: 06/27/20 18:06 Dose: 50 mls/hr Documented by: Ceftriaxone Sodium 2 gm/ (Sodium Chloride) 50 mls @ 100 mls/hr IVPB Q24H [facility] Last Admin: 06/27/20 19:49 Dose: 100 mls/hr Documented by: Insulin Aspart (Novolog) 0 unit SQ ACHS [facility]; Protocol Last Admin: 06/27/20 19:59 Dose: 1 unit Documented by: Naloxone HCl (Narcan) 0.2 mg IV Q2M PRN PRN Reason: Opioid Reversal Nitroglycerin (Nitrostat) 0.4 mg SUBLINGUAL Q5M PRN PRN Reason: Chest Pain Pantoprazole Sodium (Protonix) 40 mg IVP BID [facility] Last Admin: 06/27/20 19:49 Dose: 40 mg Documented by: Pioglitazone HCl (Actos) 30 mg PO DAILY [facility] Last Admin: 06/27/20 09:27 Dose: 30 mg Documented by: Sodium Bicarbonate (Sodium Bicarbonate Tab) 650 mg PO TID [facility] Last Admin: 06/27/20 19:48 Dose: 650 mg Documented by: Tamsulosin HCl (Flomax) 0.4 mg PO BID [facility] Last Admin: 06/27/20 19:48 Dose: 0.4 mg Documented by: Temazepam (Restoril) 15 mg PO HS PRN PRN Reason: Insomnia Objective - Vital Signs Vital signs: Vital Signs Temp 98.7 F 06/27/20 12:00 Pulse 91 06/27/20 12:00 Resp 19 06/27/20 12:00 BP 113/72 06/27/20 12:00 Pulse Ox 95 06/27/20 12:00 Intake & Output 06/26/20 06/27/20 06/27/20 18:59 06:59 18:59 Intake Total 240 240 Output Total 24 Balance 216 240 Weight 135.171 kg 135.171 kg Intake: Oral 240 240 Output: Post Void Residual 24 Other: Voiding Method Self-Catheterization Toilet Self-Catheterization # Voids 2 2 - Exam Gen: lying in bed, awake, alert and oriented 3, well-developed, well-nourished. HEENT: Head is atraumatic, normocephalic. Pupils equal, round. Sclerae is anicteric. NECK: Supple. No JVD. No lymphadenopathy. No thyromegaly. LUNGS: Breath sounds diminished at the bases with a few scattered rhonchi noted. HEART: Regular rate and rhythm. No murmur. ABDOMEN: Soft. Obese. Bowel sounds are present. No masses. No tenderness. EXTREMITIES: No calf tenderness. no lower extremity edema NEUROLOGICAL: Patient is awake, alert and oriented x3. No focal deficits - Labs CBC & Chem 7: 06/28/20 05:56 06/28/20 05:56 Labs: Abnormal Lab Results - Last 24 Hours (Table) 06/26/20 06/26/20 06/27/20 Range/Units 16:56 20:22 06:15 WBC (3.8-10.6) k/uL Hgb (13.0-17.5) gm/dL Neutrophils # (1.3-7.7) k/uL Lymphocytes # (1.0-4.8) k/uL Sodium (137-145) mmol/L Carbon Dioxide (22-30) mmol/L BUN (9-20) mg/dL Creatinine (0.66-1.25) mg/dL Glucose (74-99) mg/dL POC Glucose (mg/dL) 121 H 213 H 166 H (75-99) mg/dL Calcium (8.4-10.2) mg/dL ALT (4-49) U/L Alkaline Phosphatase (38-126) U/L Albumin (3.5-5.0) g/dL 06/27/20 06/27/20 06/27/20 Range/Units 06:16 06:16 12:00 WBC 14.8 H (3.8-10.6) k/uL Hgb 12.7 L (13.0-17.5) gm/dL Neutrophils # 13.0 H (1.3-7.7) k/uL Lymphocytes # 0.8 L (1.0-4.8) k/uL Sodium 128 L (137-145) mmol/L Carbon Dioxide 17 L (22-30) mmol/L BUN 45 H (9-20) mg/dL Creatinine 3.88 H (0.66-1.25) mg/dL Glucose 144 H (74-99) mg/dL POC Glucose (mg/dL) 144 H (75-99) mg/dL Calcium 7.8 L (8.4-10.2) mg/dL ALT 53 H (4-49) U/L Alkaline Phosphatase 153 H (38-126) U/L Albumin 2.8 L (3.5-5.0) g/dL Microbiology - Last 24 Hours (Table) 06/26/20 11:56 Blood Culture Gram Stain - Preliminary Blood Blood Culture - Preliminary Escherichia coli 06/26/20 11:56 Blood Culture - Final Blood 06/26/20 11:56 Urine Culture - Preliminary Urine,Catheterized Assessment and Plan Assessment: ASSESSMENT Sepsis secondary to UTI Acute kidney injury-possibly secondary to above Chronic kidney disease stage III History of recent TURP procedure Hyponatremia Leukocytosis Mildly elevated troponins Hypertension Hyperlipidemia Type 2 diabetes mellitus Obstructive sleep apnea Coronary artery disease status post stenting Nicotine dependence remote history Obesity with BMI 42.8 PLAN: Patient had VQ scan that was showing low probability for PE, C. difficile has been negative. Nephrology on board making adjustments in his fluids due to ongoing hyponatremia and hypokalemia. Patient is currently on ceftriaxone for his UTI. Blood cultures positive for E. coli as well as urine cultures showing gram-negative bacilli. Will consult ID Dr. Damon for gram-negative bacteremia. Continue with the current medication regimen. Further recommendations to follow depending on the progress of the patient. Overall prognosis is guarded due to chronic medical conditions.
[2020-06-28 06:18] LABS: Glucose,Whole Blood 130 mg/dL (75-99)
[2020-06-28] MEDS: INSULIN ASPART (NovoLOG) 100 UNIT/ML VIAL SQ SCH ×4 (06:27→22:39)
[2020-06-28 06:52] LABS: Basophils % (A) 0 %; Eosinophils # (A) 0.1 k/uL (0-0.7); Eosinophils % (A) 1 %; HCT 39.9 % (39.0-53.0); HGB 12.7 gm/dL (13.0-17.5); Lymphocytes # (A) 0.8 k/uL (1.0-4.8); Lymphocytes % (A) 7 %; MCH 28.7 pg (25.0-35.0); MCHC 31.7 g/dL (31.0-37.0); MCV 90.6 fL (80.0-100.0); Mean Platelet Volume 7.5; Monocytes # (A) 0.7 k/uL (0-1.0); Monocytes % (A) 6 %; Neutrophils # (A) 9.2 k/uL (1.3-7.7); Neutrophils % (A) 84 %; Platelet Count 404 k/uL (150-450); RDW 13.1 % (11.5-15.5)
[2020-06-28 06:54] LABS: Calcium 8.2 mg/dL (8.4-10.2); Magnesium 2.3 mg/dL (1.6-2.3); Potassium 4.6 mmol/L (3.5-5.1)
--- NOTE | 2020-06-28 08:07 | P.PN ---
Subjective Progress Note Date: 06/28/20 Principal diagnosis: CAD/ SOB This is a very pleasant 65-year-old gentleman who was a patient of Dr. Aquino in the past with coronary artery disease where in 2017 he was admitted to the hospital with a chest discomfort and underwent a heart catheterization and that revealed severe disease involving the RCA as well as diagonal branch of the LAD. He underwent successful stenting of the diagonal. Beside that the patient does have chronic kidney disease, diabetes, hypertension, dyslipidemia. Recently he was admitted to the hospital and underwent TURP which complicated by respiratory failure required mechanical ventilation for few days. The patient subsequently was discharged home in stable medical condition. He presented back to the hospital this time not feeling well. He was short of breath and feeling weak and tired and fatigued. He was diagnosed with urinary tract infection and currently is on antibiotic. We involved in his care for abnormal troponin. When he presented to the hospital this time his creatinine was 3.88 and the GFR was 15. Beside that he was chest pain-free. The EKG showed sinus rhythm without any significant ST or T-wave abnormalities. We advise medical treatment only. The patient was seen today June [id number]. He states "I feel better". He denies any chest pain or chest discomfort. The blood pressure has improved. The creatinine continues to be elevated. Currently he is on aspirin as well as a statin. He underwent an echocardiogram yesterday and will follow-up on that. I would advise continue the conservative medical approach at this point in view of the absence chest pain or chest discomfort as well as absence of any ischemic ST or T-wave abnormalities and also in the process of advanced chronic kidney disease. Objective - Vital Signs Vital signs: Vital Signs Temp 98.6 F 06/28/20 03:40 Pulse 98 06/28/20 03:45 Resp 18 06/28/20 03:45 BP 108/70 06/28/20 03:40 Pulse Ox 97 06/28/20 03:40 Intake & Output 06/27/20 06/28/20 06/28/20 18:59 06:59 18:59 Intake Total 1320 Output Total 800 950 Balance 520 -950 Weight 135.171 kg Intake: Intake, IV Titration 600 Amount Sodium Chloride 0.9% 1, 500 000 ml @ 50 mls/hr IV . Q20H [facility] Rx#:[id number] cefTRIAXone 2 gm In 100 Sodium Chloride 0.9% 50 ml @ 100 mls/hr IVPB Q24H [facility] Rx#:[id number] Oral 720 Output: Urine 800 950 Other: Voiding Method Self-Catheterization Self-Catheterization # Voids 2 1 - Constitutional General appearance: Present: no acute distress - Respiratory Respiratory: bilateral: CTA - Cardiovascular Rhythm: regular Heart sounds: normal: S1, S2 - Labs CBC & Chem 7: 06/28/20 05:56 06/28/20 05:56 Labs: Abnormal Lab Results - Last 24 Hours (Table) 06/27/20 06/27/20 06/27/20 Range/Units 12:00 16:58 19:55 WBC (3.8-10.6) k/uL Hgb (13.0-17.5) gm/dL Neutrophils # (1.3-7.7) k/uL Lymphocytes # (1.0-4.8) k/uL Sodium (137-145) mmol/L Carbon Dioxide (22-30) mmol/L BUN (9-20) mg/dL Creatinine (0.66-1.25) mg/dL Glucose (74-99) mg/dL POC Glucose (mg/dL) 144 H 141 H 139 H (75-99) mg/dL Calcium (8.4-10.2) mg/dL 06/28/20 06/28/20 06/28/20 Range/Units 05:56 05:56 06:17 WBC 11.0 H (3.8-10.6) k/uL Hgb 12.7 L (13.0-17.5) gm/dL Neutrophils # 9.2 H (1.3-7.7) k/uL Lymphocytes # 0.8 L (1.0-4.8) k/uL Sodium 133 L (137-145) mmol/L Carbon Dioxide 18 L (22-30) mmol/L BUN 48 H (9-20) mg/dL Creatinine 3.79 H (0.66-1.25) mg/dL Glucose 124 H (74-99) mg/dL POC Glucose (mg/dL) 130 H (75-99) mg/dL Calcium 8.2 L (8.4-10.2) mg/dL Microbiology - Last 24 Hours (Table) 06/26/20 11:56 Urine Culture - Preliminary Urine,Catheterized Gram Neg Bacilli 06/26/20 11:56 Blood Culture Gram Stain - Preliminary Blood Blood Culture - Preliminary Escherichia coli 06/26/20 11:56 Blood Culture - Final Blood Assessment and Plan Assessment: Assessment #1 urosepsis #2 acute on chronic renal failure #3 mildly elevated troponin #4 coronary artery disease #5 status post TURP #6 multiple comorbid conditions Plan #1 conservative medical treatment for the mildly abnormal troponin in the absence of any chest pain or chest discomfort or ischemic ST or T-wave abnormalities and also in view of the acute renal failure #2 continue the current medical regimen including aspirin as well as a statin #3 follow-up on the echocardiogram #4 follow-up with the patient
[2020-06-28] MEDS: TAMSULOSIN 0.4 MG CAP.ER.24H PO SCH ×2 (09:12→19:56)
[2020-06-28] MEDS: PIOGLITAZONE 30 MG TAB PO SCH (09:12)
[2020-06-28] MEDS: HEPARIN SODIUM,PORCINE 5,000 UNIT/ML 1 ML VIAL SQ SCH ×2 (09:12→22:39)
[2020-06-28] MEDS: PANTOPRAZOLE 40 MG/10 ML VIAL IVP SCH ×2 (09:12→19:56)
[2020-06-28] MEDS: SODIUM BICARBONATE TAB 650 MG TAB PO SCH ×3 (09:12→19:56)
[2020-06-28] MEDS: ASPIRIN 81 MG PO SCH (09:12)
[2020-06-28] MEDS: FINASTERIDE 5 MG TAB PO SCH (09:12)
[2020-06-28] MEDS: SODIUM CHLORIDE 0.9% 1,000 ML IV SCH (09:22)
--- NOTE | 2020-06-28 09:34 | P.PN ---
Subjective Patient is seen in follow for acute kidney injury on chronic kidney disease. Patient has chronic kidney disease stage III with baseline creatinine in the range of 1.5-2. Good urine output. He is performing self catheterizations. No vomiting or diarrhea. Oral intake is good. Vital signs are stable. General: The patient appeared well nourished and normally developed. HEENT: Head exam is unremarkable. Neck is without jugular venous distension. LUNGS: Lungs are clear to auscultation and percussion. Breath sounds decreased. HEART: Rate and Rhythm are regular. ABDOMEN: Soft, nontender. EXTREMITITES: Trace edema. Objective - Vital Signs Vital signs: Vital Signs Temp 98.4 F 06/28/20 08:20 Pulse 95 06/28/20 08:20 Resp 19 06/28/20 08:20 BP 109/66 06/28/20 08:20 Pulse Ox 96 06/28/20 08:20 Intake & Output 06/27/20 06/28/20 06/28/20 18:59 06:59 18:59 Intake Total 1320 Output Total 800 950 Balance 520 -950 Weight 135.171 kg Intake: Intake, IV Titration 600 Amount Sodium Chloride 0.9% 1, 500 000 ml @ 50 mls/hr IV . Q20H [facility] Rx#:[id number] cefTRIAXone 2 gm In 100 Sodium Chloride 0.9% 50 ml @ 100 mls/hr IVPB Q24H [facility] Rx#:[id number] Oral 720 Output: Urine 800 950 Other: Voiding Method Self-Catheterization Self-Catheterization Urinal Self-Catheterization # Voids 2 1 - Labs CBC & Chem 7: 06/28/20 05:56 06/28/20 05:56 Labs: Abnormal Lab Results - Last 24 Hours (Table) 06/27/20 06/27/20 06/27/20 Range/Units 12:00 16:58 19:55 WBC (3.8-10.6) k/uL Hgb (13.0-17.5) gm/dL Neutrophils # (1.3-7.7) k/uL Lymphocytes # (1.0-4.8) k/uL Sodium (137-145) mmol/L Carbon Dioxide (22-30) mmol/L BUN (9-20) mg/dL Creatinine (0.66-1.25) mg/dL Glucose (74-99) mg/dL POC Glucose (mg/dL) 144 H 141 H 139 H (75-99) mg/dL Calcium (8.4-10.2) mg/dL 06/28/20 06/28/20 06/28/20 Range/Units 05:56 05:56 06:17 WBC 11.0 H (3.8-10.6) k/uL Hgb 12.7 L (13.0-17.5) gm/dL Neutrophils # 9.2 H (1.3-7.7) k/uL Lymphocytes # 0.8 L (1.0-4.8) k/uL Sodium 133 L (137-145) mmol/L Carbon Dioxide 18 L (22-30) mmol/L BUN 48 H (9-20) mg/dL Creatinine 3.79 H (0.66-1.25) mg/dL Glucose 124 H (74-99) mg/dL POC Glucose (mg/dL) 130 H (75-99) mg/dL Calcium 8.2 L (8.4-10.2) mg/dL Microbiology - Last 24 Hours (Table) 06/26/20 11:56 Urine Culture - Preliminary Urine,Catheterized Gram Neg Bacilli 06/26/20 11:56 Blood Culture Gram Stain - Preliminary Blood Blood Culture - Preliminary Escherichia coli Assessment and Plan Plan: Assessment: 1. Acute kidney injury secondary to ATN secondary to severe sepsis. Renal function stable. Creatinine 3.79 today. 2. Chronic kidney disease stage III with baseline creatinine the range of 1.5-2 secondary to chronic obstructive uropathy/urinary retention and diabetic kidney disease. 3. BPH status post TURP on June 10. Patient performs self catheterizations. 4. Severe sepsis secondary to UTI and gram-negative bacteremia. Maintained on IV antibiotics. 5. Hypervolemic hyponatremia. Better. 6. Lower extremity edema. Improved. 7. Metabolic acidosis secondary to acute kidney injury and IV fluids. Maintained on oral sodium bicarbonate. 8. Diabetes mellitus. Plan: Hep-Lock IV fluids. 1500 mL fluid restriction. Follow-up cultures. Continue to monitor renal function and urine output. Follow-up echocardiogram.
[2020-06-28 12:13] LABS: Glucose,Whole Blood 142 mg/dL (75-99)
--- NOTE | 2020-06-28 12:13 | P.PN ---
Progress Note - Text Progress Note Date: 06/28/20 The patient was afebrile and feeling much better today. The WBC count has decreased to 11.0. Blood cultures have shown E. coli, sensitive to Rocephin. Urine cultures show gram-negative bacilli. The computed tomography scan showed a hepatic abnormality, but the patient denies any right upper quadrant discomfort. He states that his urine is clearing, but that he is voiding smaller amounts and thus needing to self catheterize. Urodynamic testing at one time suggested he had a hypotonic bladder, and this may explain his incomplete bladder emptying despite the recent TURP. I would suggest no change in his management at this time.
--- NOTE | 2020-06-28 12:35 | P.PN ---
Subjective Progress Note Date: 06/28/20 Principal diagnosis: Sepsis secondary to gram-negative bacteria This is a 65-year-old white male with history of diabetes, hypertension, prostate disorder, obstructive sleep apnea syndrome maintained on CPAP/BiPAP. Patient was evaluated in 2016 by urology for elevated creatinine and bilateral hydronephrosis. Catheter drainage done and the patient developed significant improvement in his renal profile with creatinine down to 1.55. Patient continues to have difficulty voiding, and this was managed with an indwelling catheter initially, then he was switched later on to intermittent catheterization in 2017. Patient was treated with a combination of finasteride and tamsulosin but he continued to have persistently elevated postvoid residual. Considering the persistent urinary retention, patient underwent TURP . Postoperatively, the patient developed what seemed to be hypoxic and hypercapnic respiratory failure with pulmonary edema. Patient was extubated reintubated postoperatively then every extubated and placed Echocardiogram in 2017 showed good LV function with ejection fraction of 55%. And there was no evidence of pulmonary hypertension. In 2015, patient had stenting of the second diagonal branch of the LAD done by Dr. Espinoza. The patient was discharged home. The patient continued to undergo self-catheterization. He came into the hospital again not feeling well. He was having some increased shortness of breath. He was having no dizziness or lightheadedness or heart fluttering. No chest pain. In the ED, the patient had a d-dimer that was abnormal. He was given a VQ scan did came back of a low probability for pulmonary embolism. Chest exit showed no acute abnormalities. His creatinine came back elevated. His UA was abnormal and the gram negative bacillus was also cultured in his blood. He was started on IV Rocephin. The blood pressure is marginally low at this point in time. His creatinine is up to 3.88. EKG showing a normal sinus mechanism. His white cell count is at 14.8. Sodium is at 128. The CAT scan of the abdomen and pelvis was done and showed a large low-density mass in the superior right lobe of the liver suspicious for an underlying abscess formation in the liver. There is also bilateral perinephric edema, nonobstructive right renal calculus, marginal right periurethral erythema and there is also deformity of the urinary bladder as well as air bubbles intramural air. Bilateral pyelonephritis was also considered. The patient is seen today 07/08/2020 in follow-up on the selective care unit. He is currently sitting up in a chair at the bedside. Awake and alert in no acute distress. Maintaining good O2 saturations in the 90s on room air. He's been afebrile. Hemodynamically stable. Blood cultures positive for E. coli. Urine culture positive for E. coli. White count 11.0. Hemoglobin 12.7. Sodium 133. Potassium 4.6. Creatinine 3.79. He is currently on ceftriaxone. Objective - Vital Signs Vital signs: Vital Signs Temp 98.4 F 06/28/20 08:20 Pulse 95 06/28/20 08:20 Resp 19 06/28/20 08:20 BP 109/66 06/28/20 08:20 Pulse Ox 96 06/28/20 08:20 Intake & Output 06/27/20 06/28/20 06/28/20 18:59 06:59 18:59 Intake Total 1320 480 Output Total 800 950 200 Balance 520 -950 280 Weight 135.171 kg Intake: Intake, IV Titration 600 Amount Sodium Chloride 0.9% 1, 500 000 ml @ 50 mls/hr IV . Q20H [facility] Rx#:[id number] cefTRIAXone 2 gm In 100 Sodium Chloride 0.9% 50 ml @ 100 mls/hr IVPB Q24H [facility] Rx#:[id number] Oral 720 480 Output: Urine 800 950 200 Other: Voiding Method Self-Catheterization Self-Catheterization Urinal Self-Catheterization # Voids 2 1 - Exam Gen. appearance: Very pleasant 65-year-old male patient, morbidly obese, comfortable in no acute distress. Head exam was generally normal. There was no scleral icterus or corneal arcus. Mucous membranes were moist. Neck was supple and without jugular venous distension, thyromegaly, or carotid bruits. Carotids were easily palpable bilaterally. There was no adenopathy. The patient is a Mallampati class IV with significant crowding of posterior pharynx Lungs were clear to auscultation and percussion, and with normal diaphragmatic excursion. No wheezes or rales were noted. Cardiac exam revealed the PMI to be normally situated and sized. The rhythm was regular and no extrasystoles were noted during several minutes of auscultation. The first and second heart sounds were normal and physiologic splitting of the second heart sound was noted. There were no murmurs, rubs, clicks, or gallops. AbAbdominal exam revealed normal bowel sounds. The abdomen was soft, non-tender, and without masses, organomegaly, or appreciable enlargement of the abdominal aorta Examination of the extremities revealed easily palpable radial, femoral and pedal pulses. There was no cyanosis, clubbing or edema. Examination of the skin revealed no evidence of significant rashes, suspicious appearing nevi or other concerning lesions. Neurologically, the patient is awake and alert and the patient does not have any focal neurological deficit. Cranial nerves are essentially intact. - Labs CBC & Chem 7: 06/28/20 05:56 06/28/20 05:56 Labs: Abnormal Lab Results - Last 24 Hours (Table) 06/27/20 06/27/20 06/28/20 Range/Units 16:58 19:55 05:56 WBC 11.0 H (3.8-10.6) k/uL Hgb 12.7 L (13.0-17.5) gm/dL Neutrophils # 9.2 H (1.3-7.7) k/uL Lymphocytes # 0.8 L (1.0-4.8) k/uL Sodium (137-145) mmol/L Carbon Dioxide (22-30) mmol/L BUN (9-20) mg/dL Creatinine (0.66-1.25) mg/dL Glucose (74-99) mg/dL POC Glucose (mg/dL) 141 H 139 H (75-99) mg/dL Calcium (8.4-10.2) mg/dL 06/28/20 06/28/20 06/28/20 Range/Units 05:56 06:17 12:12 WBC (3.8-10.6) k/uL Hgb (13.0-17.5) gm/dL Neutrophils # (1.3-7.7) k/uL Lymphocytes # (1.0-4.8) k/uL Sodium 133 L (137-145) mmol/L Carbon Dioxide 18 L (22-30) mmol/L BUN 48 H (9-20) mg/dL Creatinine 3.79 H (0.66-1.25) mg/dL Glucose 124 H (74-99) mg/dL POC Glucose (mg/dL) 130 H 142 H (75-99) mg/dL Calcium 8.2 L (8.4-10.2) mg/dL Microbiology - Last 24 Hours (Table) 06/26/20 11:56 Blood Culture Gram Stain - Final Blood Blood Culture - Final Escherichia coli 06/26/20 11:56 Urine Culture - Preliminary Urine,Catheterized Gram Neg Bacilli Assessment and Plan Assessment: 1 sepsis secondary to E. coli. This is likely of a urinary source. Consider underlying pyelonephritis especially with the above-mentioned CAT scan images. Also, there is a concern of a liver abscess . The patient is hemodynamically stable. The patient is is afebrile. The patient has some mild leukocytosis. The patient on IV Rocephin. 2 liver mass/abscess, please refer to the CAT scan findings of the abdomen 3 acute on chronic kidney injury 4 chronic urinary retention secondary to BPH post TURP, the patient is still undergoing self-catheterization 5 chronic diastolic heart failure currently inactive in stable 6 morbid obesity with a BMI of 42.8 7 coronary artery disease with previous stent placement in 2016 8 obstructive sleep apnea 9 diabetes mellitus 10 hypertension 11 non-anion gap metabolic acidosis with a bicarb level of 17. The sodium level is at 128 12 mild leukocytosis 13 fever Plan The patient was seen and evaluated by Dr. Young He remains stable from the pulmonary standpoint Continue ceftriaxone. Increase his activity as tolerated Possible liver abscess and may require percutaneous drainage by interventional radiology We'll continue to follow I, the cosigning physician, performed a history & physical examination of the patient. Lungs sounds are clear. Maintaining good O2 saturations in the 90s on room air. I discussed the assessment and plan of care with my nurse practitioner, Latanya Bhatia. I attest to the above note as dictated by her.
--- NOTE | 2020-06-28 15:26 | P.PN ---
Subjective Progress Note Date: 06/28/20 Principal diagnosis: Dyspnea Mr. Grissom is a 65-year-old male with history of hypertension, diabetes, prostate disorder, obstructive sleep apnea on CPAP, presenting with a chief complaint of difficulty in breathing. Patient recently had TURP by Dr. Jimenez, couple of weeks back and postoperatively the patient had respiratory failure was mechanically ventilated overnight and discharged the next day after improving. After going home patient felt better but subsequently developed increased difficulty in breathing and at the time of admission was found to have possible UTI and early sepsis so admitted for further management. On 06/27/2020 -Today the patient is lying in bed appears to be in no acute distress. Patient complains of generalized weakness. He also has difficulty in breathing with activity but better than when he came in. Denies having any chest pain or palpitations. Patient denies having any dysuria or hematuria. No abdominal pain nausea vomiting or diarrhea. On reviewing the labs patient's white count is 14.8, hemoglobin 12.7, sodium 128, potassium 4.6, chloride 99, bicarb 17, BUN 45, creatinine 3.88. On 06/28/2020- no acute events reported by nursing staff overnight. patient is lying in bed appears to be no acute distress. His is at the bedside. Patient states that his generalized weakness has improved and that his breathing has improved as well. Patient denies having any chest pain or palpitations. No lower extremity swelling. Patient's vitals are been stable OVERNIGHT, T-max 98.4, heart rate 95, blood pressure 109/66, saturating at 96% on room air. Patient's urine and blood culture positive for gram-negative bacilli, E. coli respectively. Patient's white count has been trending down from 17-14-11 today. Creatinine at 3.79 today. Active Medications Hydrocodone Bitart/Acetaminophen (Duff 5-325) 1 each PO Q6HR PRN PRN Reason: Pain Aspirin (Aspirin) 81 mg PO DAILY [facility] Last Admin: 06/28/20 09:12 Dose: 81 mg Documented by: Atorvastatin Calcium (Lipitor) 80 mg PO HS [facility] Last Admin: 06/27/20 19:48 Dose: 80 mg Documented by: Diazepam (Valium) 5 mg PO BID PRN PRN Reason: Motion Sickness Ergocalciferol (Vitamin D2) 50,000 unit PO Q30D [facility] Finasteride (Proscar) 5 mg PO DAILY [facility] Last Admin: 06/28/20 09:12 Dose: 5 mg Documented by: Heparin Sodium (Porcine) (Heparin) 5,000 unit SQ Q12HR [facility] Last Admin: 06/28/20 09:12 Dose: 5,000 unit Documented by: Hydromorphone HCl (Dilaudid) 0.5 mg IVP Q3HR PRN PRN Reason: Severe Pain Ceftriaxone Sodium 2 gm/ (Sodium Chloride) 50 mls @ 100 mls/hr IVPB Q24H [facility] Last Admin: 06/27/20 19:49 Dose: 100 mls/hr Documented by: Insulin Aspart (Novolog) 0 unit SQ ACHS [facility]; Protocol Last Admin: 06/28/20 12:36 Dose: 1 unit Documented by: Naloxone HCl (Narcan) 0.2 mg IV Q2M PRN PRN Reason: Opioid Reversal Nitroglycerin (Nitrostat) 0.4 mg SUBLINGUAL Q5M PRN PRN Reason: Chest Pain Pantoprazole Sodium (Protonix) 40 mg IVP BID [facility] Last Admin: 06/28/20 09:12 Dose: 40 mg Documented by: Pioglitazone HCl (Actos) 30 mg PO DAILY [facility] Last Admin: 06/28/20 09:12 Dose: 30 mg Documented by: Sodium Bicarbonate (Sodium Bicarbonate Tab) 650 mg PO TID [facility] Last Admin: 06/28/20 09:12 Dose: 650 mg Documented by: Tamsulosin HCl (Flomax) 0.4 mg PO BID [facility] Last Admin: 06/28/20 09:12 Dose: 0.4 mg Documented by: Temazepam (Restoril) 15 mg PO HS PRN PRN Reason: Insomnia Objective - Vital Signs Vital signs: Vital Signs Temp 98.4 F 06/28/20 08:20 Pulse 81 06/28/20 12:15 Resp 19 06/28/20 12:15 BP 116/68 06/28/20 12:15 Pulse Ox 95 06/28/20 12:15 Intake & Output 06/27/20 06/28/20 06/28/20 18:59 06:59 18:59 Intake Total 1320 480 Output Total 800 950 200 Balance 520 -950 280 Weight 135.171 kg Intake: Intake, IV Titration 600 Amount Sodium Chloride 0.9% 1, 500 000 ml @ 50 mls/hr IV . Q20H [facility] Rx#:[id number] cefTRIAXone 2 gm In 100 Sodium Chloride 0.9% 50 ml @ 100 mls/hr IVPB Q24H [facility] Rx#:[id number] Oral 720 480 Output: Urine 800 950 200 Other: Voiding Method Self-Catheterization Self-Catheterization Urinal Self-Catheterization # Voids 2 1 - Exam PHYSICAL EXAM Gen: lying in bed, well-developed, well-nourished. Morbidly obese. HEENT: Head is atraumatic, normocephalic. Pupils equal, round. Sclerae is anicteric. NECK: Supple. No JVD. No lymphadenopathy. No thyromegaly. LUNGS: Breath sounds diminished at the bases with a few scattered rhonchi noted. HEART: Regular rate and rhythm. No murmur. ABDOMEN: Soft. Obese. Bowel sounds are present. No masses. No tenderness. EXTREMITIES: No calf tenderness. no lower extremity edema NEUROLOGICAL: Patient is awake, alert and oriented x3. No focal deficits - Labs CBC & Chem 7: 06/28/20 05:56 06/28/20 05:56 Labs: Abnormal Lab Results - Last 24 Hours (Table) 06/27/20 06/27/20 06/28/20 Range/Units 16:58 19:55 05:56 WBC 11.0 H (3.8-10.6) k/uL Hgb 12.7 L (13.0-17.5) gm/dL Neutrophils # 9.2 H (1.3-7.7) k/uL Lymphocytes # 0.8 L (1.0-4.8) k/uL Sodium (137-145) mmol/L Carbon Dioxide (22-30) mmol/L BUN (9-20) mg/dL Creatinine (0.66-1.25) mg/dL Glucose (74-99) mg/dL POC Glucose (mg/dL) 141 H 139 H (75-99) mg/dL Calcium (8.4-10.2) mg/dL 06/28/20 06/28/20 06/28/20 Range/Units 05:56 06:17 12:12 WBC (3.8-10.6) k/uL Hgb (13.0-17.5) gm/dL Neutrophils # (1.3-7.7) k/uL Lymphocytes # (1.0-4.8) k/uL Sodium 133 L (137-145) mmol/L Carbon Dioxide 18 L (22-30) mmol/L BUN 48 H (9-20) mg/dL Creatinine 3.79 H (0.66-1.25) mg/dL Glucose 124 H (74-99) mg/dL POC Glucose (mg/dL) 130 H 142 H (75-99) mg/dL Calcium 8.2 L (8.4-10.2) mg/dL Microbiology - Last 24 Hours (Table) 06/26/20 11:56 Blood Culture Gram Stain - Final Blood Blood Culture - Final Escherichia coli 06/26/20 11:56 Urine Culture - Preliminary Urine,Catheterized Gram Neg Bacilli Assessment and Plan Assessment: ASSESSMENT Sepsis secondary to UTI due to E. coli Acute kidney injury-possibly secondary to above Chronic kidney disease stage III History of recent TURP procedure Hyponatremia Leukocytosis Mildly elevated troponins Hypertension Hyperlipidemia Type 2 diabetes mellitus Obstructive sleep apnea Coronary artery disease status post stenting Nicotine dependence remote history Obesity with BMI 42.8 PLAN: Patient had VQ scan that was showing low probability for PE, C. difficile has been negative. Nephrology on board making adjustments in his fluids due to ongoing hyponatremia and hypokalemia. Patient is currently on ceftriaxone for his UTI. Blood cultures positive for E. coli as well as urine cultures showing gram-negative bacilli. Will consult ID Dr. Damon for gram-negative bacteremia. Repeat blood cultures obtained today. Echocardiogram pending. Continue with the current medication regimen. The treatment plan was discussed with the patient and his at bedside in detail today. Further recommendations to follow depending on the progress of the patient. Overall prognosis is guarded due to chronic medical conditions.
--- NOTE | 2020-06-28 16:00 | ECHOF ---
Referral Reason:nstemi MEASUREMENTS -------- HEIGHT: 177.8 cm WEIGHT: 135.2 kg BP: 90/50 IVSd: 1.5 cm (0.6 - 1.1) LVIDd: 3.6 cm (3.9 - 5.3) LVPWd: 1.4 cm (0.6 - 1.1) IVSs: 1.4 cm LVIDs: 3.0 cm LVPWs: 1.7 cm LAESV Index (A-L): 16.75 ml/m Ao Diam: 3.5 cm (2.0 - 3.7) AV Cusp: 2.4 cm (1.5 - 2.6) MV E Flako: 0.62 m/s MV DecT: 147 ms MV A Flako: 0.62 m/s MV E/A Ratio: 0.99 RAP: 5.00 mmHg RVSP: 19.91 mmHg FINDINGS -------- Sinus rhythm. This was a technically difficult study with suboptimal views. The left ventricular size is normal. There is moderate concentric left ventricular hypertrophy. T here is moderate global hypokinesis of LV . Overall left ventricular systolic function is moderatel y impaired with, an EF between 35 - 40 %. Mitral Doppler inflow pattern suggests diastolic filling abnormality {E/E'}. The RV was not well visualized. Normal LA size by volume 22+/-6 ml/m2. The right atrium was not well visualized. 5.0mg of Lumason was utilized for enhancement of images Interatrial and interventricular septum intact. The aortic valve was not well visualized. There is no evidence of aortic regurgitation. There is no evidence of aortic stenosis. The mitral valve was not well visualized. No mitral regurgitation. Mild tricuspid regurgitation present. There is no evidence of pulmonary hypertension. The right v entricular systolic pressure, as measured by Doppler, is 19.91mmHg. The pulmonic valve was not well visualized. The aortic root size is normal. IVC Not well visulized. CONCLUSIONS -------- 1. The left ventricular size is normal. 2. There is moderate concentric left ventricular hypertrophy. 3. There is moderate global hypokinesis of LV . 4. Overall left ventricular systolic function is moderately impaired with, an EF between 35 - 40 %. 5. Mitral Doppler inflow pattern suggest diastolic filling abnormality {E/E'}. 6. Mild tricuspid regurgitation present. [employer]TE[employer]CE INSTRUCTOR: Whitley George RDCS
[2020-06-28 17:12] LABS: Glucose,Whole Blood 135 mg/dL (75-99)
[2020-06-28] MEDS: ATORVASTATIN 80 MG TAB PO SCH (19:56)
[2020-06-28 20:30] LABS: Glucose,Whole Blood 206 mg/dL (75-99)
--- NOTE | 2020-06-28 23:49 | P.CONS ---
History of Present Illness - Reason for Consult Consult date: 06/28/20 Bacteremia Requesting physician: Yane Soto - Chief Complaint Shortness of breath x 1 day - History of Present Illness Patient is a 65-year-old male who is status post TURP 2 weeks ago, presenting to the ER at [facility] 2 days ago with a chief complaints of increasing shortness of breath patient is deciding the day before presentation hospital patient apparently was seen the day before admission Hospital by his urologist and was diagnosed with UTI and the patient was started on Bactrim DS patient has been complaining of some urinary difficulty and minimal burning but no suprapubic or flank pain on admission to hospital the patient did have a low-grade fever 100.5 he did have elevated white count of 17,000 did have a positive UA patient did have a CT of the chest abdominal pelvis which raises the possibility of possible liver abscess in addition to some abnormality of the bladder possibly related to recent prostate surgery but did not mention any abscess in the posterior leg and patient did have blood culture done which came positive with gram-negative bacilli patient anybody was switched over to Rocephin 2 g daily and infection disease was consulted for further management of antibiotic therapy Review of Systems Positive point has been mentioned in the HPI rest of the systems are negative Past Medical History Past Medical History: Coronary Artery Disease (CAD), CVA/TIA, Diabetes Mellitus, Hyperlipidemia, Hypertension, Prostate Disorder, Renal Disease, Sleep Apnea/CPAP/BIPAP Additional Past Medical History / Comment(s): 2017 BPH with urinary retention/intermittent self cathing-hydornephrosis/had TURP 06/10/20 and had to be re-intubated in recovery room/vented and sent to ICU-pt states he still self caths occasionally, UTIs, vertigo/work up showed 3 prior CVAs per pt, NIDDM type II, History of Any Multi-Drug Resistant Organisms: None Reported Past Surgical History: Heart Catheterization With Stent Additional Past Surgical History / Comment(s): 06/10/20 TURP, 2016 PCI with stent, R mid finger partial amp, colonoscopy with benign colonoscopy. Past Anesthesia/Blood Transfusion Reactions: No Reported Reaction Additional Past Anesthesia/Blood Transfusion Reaction / Comm: 06/10/20 pt had TURP, was re-intubated/vented in recovery room. Date of Last Stent Placement:: 09-02-16 Smoking Status: Former smoker - Past Family History Mother Family Medical History: Diabetes Mellitus, Hypertension Additional Family Medical History / Comment(s): varicose veins Father Family Medical History: Hyperlipidemia, Hypertension Additional Family Medical History / Comment(s): enlarged heart with leaky valve Medications and Allergies Home Medications Medication Instructions Recorded Confirmed Type Aspirin 81 mg PO DAILY 08/29/16 06/26/20 History Tamsulosin [Flomax] 0.4 mg PO BID 08/29/16 06/26/20 History Nitroglycerin Sl Tabs [Nitrostat] 0.4 mg SUBLINGUAL Q5M PRN #25 tab 09/03/16 06/26/20 Rx Atorvastatin [Lipitor] 80 mg PO HS 04/17/17 06/26/20 History Finasteride [Proscar] 5 mg PO DAILY 04/17/17 06/26/20 History lisinopriL [Zestril] 2.5 mg PO DAILY 04/17/17 06/26/20 History diazePAM [Valium] 5 mg PO BID PRN #6 tab 04/20/17 06/26/20 Rx Empagliflozin/Linagliptin 1 tab PO DAILY 06/05/20 06/26/20 History [Glyxambi 10 mg-5 mg Tablet] Ergocalciferol [Vitamin D2] 50,000 unit PO Q30D 06/05/20 06/26/20 History Pioglitazone [Actos] 30 mg PO DAILY 06/05/20 06/26/20 History glipiZIDE [Glucotrol] 10 mg PO AC-BRKFST 06/05/20 06/26/20 History Allergies Allergy/AdvReac Type Severity Reaction Status Date / Time No Known Allergies Allergy Verified 06/26/20 12:39 Physical Exam Vitals: Vital Signs Temp Pulse Resp BP Pulse Ox 06/28/20 12:15 81 19 116/68 95 06/28/20 08:20 98.4 F 95 19 109/66 96 06/28/20 03:45 98 18 06/28/20 03:40 98.6 F 98 18 108/70 97 06/27/20 23:49 96 20 06/27/20 23:47 99.2 F 96 20 116/61 98 06/27/20 20:00 99.6 F 96 18 96/54 95 06/27/20 16:00 99.2 F 94 18 134/55 97 Intake and Output 06/28/20 06/28/20 06/28/20 06:59 14:59 22:59 Intake Total 480 Output Total 950 200 Balance -950 280 Intake: Oral 480 Output: Urine 950 200 Other: Voiding Method Self-Catheterization Urinal Self-Catheterization # Voids 1 GENERAL DESCRIPTION: Middle-aged male lying in bed, no distress. No tachypnea or accessory muscle of respiration use. HEENT: Shows Pallor , no scleral icterus. Oral mucous membrane is dry. No pharyngeal erythema or thrush NECK: Trachea central, no thyromegaly. LUNGS: Unlabored breathing. Clear to auscultation anteriorly. No wheeze or crackle. HEART: S1, S2, regular rate and rhythm. No loud murmur ABDOMEN: Soft, no tenderness , guarding or rigidity, no organomegaly EXTREMITIES: No edema of feet. SKIN: No rash, no masses palpable. NEUROLOGICAL: The patient is awake, alert, oriented x3, mood and affect normal. Results CBC & Chem 7: 06/28/20 05:56 06/28/20 05:56 Labs: Abnormal Lab Results - Last 24 Hours (Table) 06/27/20 06/27/20 06/28/20 Range/Units 16:58 19:55 05:56 WBC 11.0 H (3.8-10.6) k/uL Hgb 12.7 L (13.0-17.5) gm/dL Neutrophils # 9.2 H (1.3-7.7) k/uL Lymphocytes # 0.8 L (1.0-4.8) k/uL Sodium (137-145) mmol/L Carbon Dioxide (22-30) mmol/L BUN (9-20) mg/dL Creatinine (0.66-1.25) mg/dL Glucose (74-99) mg/dL POC Glucose (mg/dL) 141 H 139 H (75-99) mg/dL Calcium (8.4-10.2) mg/dL 06/28/20 06/28/20 06/28/20 Range/Units 05:56 06:17 12:12 WBC (3.8-10.6) k/uL Hgb (13.0-17.5) gm/dL Neutrophils # (1.3-7.7) k/uL Lymphocytes # (1.0-4.8) k/uL Sodium 133 L (137-145) mmol/L Carbon Dioxide 18 L (22-30) mmol/L BUN 48 H (9-20) mg/dL Creatinine 3.79 H (0.66-1.25) mg/dL Glucose 124 H (74-99) mg/dL POC Glucose (mg/dL) 130 H 142 H (75-99) mg/dL Calcium 8.2 L (8.4-10.2) mg/dL Microbiology - Last 24 Hours (Table) 06/26/20 11:56 Blood Culture Gram Stain - Final Blood Blood Culture - Final Escherichia coli 06/26/20 11:56 Urine Culture - Preliminary Urine,Catheterized Gram Neg Bacilli Assessment and Plan Assessment: 1- patient presented to hospital with sepsis in this patient did have a fever and elevated white count and tachycardia source is likely urinary, with evidence of gram-negative bacteremia , CT did not show any evidence of abscess in the prostate bed however has been concerning for possible liver abscess the patient didn't have any symptoms as for his right upper quadrant area 2- renal insufficiency and high risk of nephrotoxicity limiting antibiotic use (1) E coli bacteremia Current Visit: Yes Status: Acute Code(s): R78.81 - BACTEREMIA; B96.20 - UNSP ESCHERICHIA COLI THE CAUSE OF DISEASES CLASSD [facility] SNOMED Code(s): 998858009218 (2) Sepsis Current Visit: Yes Status: Acute Code(s): A41.9 - SEPSIS, UNSPECIFIED ORGANISM SNOMED Code(s): 14095337 (3) Urinary tract infection Current Visit: Yes Status: Acute Code(s): N39.0 - URINARY TRACT INFECTION, SITE NOT SPECIFIED SNOMED Code(s): 02689841 Plan: 1- we will obtain ultrasound of the liver to make sure no evidence of any liver abscess 2- Rocephin 2 g daily 3- gentle IV fluid We will follow on clinical condition and cultures to further adjust medication if needed Thank you for this consultation will follow this patient with you Time with Patient: Greater than 30
[2020-06-29 06:18] LABS: Glucose,Whole Blood 126 mg/dL (75-99)
[2020-06-29 06:40] LABS: Basophils % (A) 0 %; Eosinophils # (A) 0.1 k/uL (0-0.7); Eosinophils % (A) 2 %; HCT 37.8 % (39.0-53.0); HGB 12.1 gm/dL (13.0-17.5); Lymphocytes # (A) 0.9 k/uL (1.0-4.8); Lymphocytes % (A) 12 %; MCV 90.6 fL (80.0-100.0); Mean Platelet Volume 7.6; Monocytes # (A) 0.4 k/uL (0-1.0); Monocytes % (A) 6 %; Neutrophils # (A) 5.6 k/uL (1.3-7.7); Neutrophils % (A) 78 %; Platelet Count 404 k/uL (150-450); RBC 4.17 m/uL (4.30-5.90); RDW 13.5 % (11.5-15.5); WBC 7.2 k/uL (3.8-10.6)
[2020-06-29] MEDS: INSULIN ASPART (NovoLOG) 100 UNIT/ML VIAL SQ SCH ×4 (06:44→21:20)
[2020-06-29 06:48] LABS: Calcium 8.2 mg/dL (8.4-10.2); Magnesium 2.4 mg/dL (1.6-2.3); Potassium 4.7 mmol/L (3.5-5.1)
--- NOTE | 2020-06-29 08:49 | US ---
EXAMINATION TYPE: US abdomen limited DATE OF EXAM: 06/29/2020 COMPARISON: NONE CLINICAL HISTORY: ? liver abscess , abnormal ct. EXAM MEASUREMENTS: Liver Length: 18.2 cm Gallbladder Wall: 0.3 cm CBD: 0.6 cm Right Kidney: 14.8 x 5.9 x 6.3 cm Pancreas: Obscured by bowel gas Liver: complex liver mass measuring 10.0 x 9.2 x 11.7cm, measures large Gallbladder: mobile echogenic foci, probable stones Evidence for sonographic Gill's sign: CBD: wnl Right Kidney: measures large, stone again noted Suboptimal evaluation of pancreas on ultrasound. Visualized liver is heterogeneously hyperechoic whic h is noted to lower sensitivity for evaluation of intrahepatic masses. Corresponding to CT in the rig ht hepatic dome there is heterogeneous slightly hyperechoic oval lesion with areas of cystic change. Gallbladder seen with mobile nonshadowing stones. Nonobstructing right renal calculus redemonstrated. IMPRESSION: Complex cystic mass in the right hepatic dome posterior segment redemonstrated. Different ial includes cystic neoplasm, multilocular abscess not entirely excluded though not typical appearanc e of a drainable thick walled well formed abscess. Consider contrast-enhanced liver protocol CT to fu rther evaluate.
[2020-06-29] MEDS: PANTOPRAZOLE 40 MG/10 ML VIAL IVP SCH (09:17)
[2020-06-29] MEDS: TAMSULOSIN 0.4 MG CAP.ER.24H PO SCH ×2 (09:17→21:20)
[2020-06-29] MEDS: HEPARIN SODIUM,PORCINE 5,000 UNIT/ML 1 ML VIAL SQ SCH ×2 (09:17→21:20)
[2020-06-29] MEDS: FINASTERIDE 5 MG TAB PO SCH (09:17)
[2020-06-29] MEDS: PIOGLITAZONE 30 MG TAB PO SCH (09:17)
[2020-06-29] MEDS: ASPIRIN 81 MG PO SCH (09:17)
[2020-06-29] MEDS: SODIUM BICARBONATE TAB 650 MG TAB PO SCH ×3 (09:17→21:20)
[2020-06-29] MEDS ORDERED: FUROSEMIDE 10 MG/ML 4 ML VIAL IV STA (11:03)
--- NOTE | 2020-06-29 11:04 | P.PN ---
Subjective Patient is seen in follow for acute kidney injury on chronic kidney disease. Patient has chronic kidney disease stage III with baseline creatinine in the range of 1.5-2. Good urine output. He is performing self catheterizations. No vomiting or diarrhea. Oral intake is good. no changes overnight. Vital signs are stable. General: The patient appeared well nourished and normally developed. HEENT: Head exam is unremarkable. Neck is without jugular venous distension. LUNGS: Lungs are clear to auscultation and percussion. Breath sounds decreased. HEART: Rate and Rhythm are regular. ABDOMEN: Soft, nontender. EXTREMITITES: Trace edema. Objective - Vital Signs Vital signs: Vital Signs Temp 98.9 F 06/29/20 08:05 Pulse 86 06/29/20 09:14 Resp 16 06/29/20 09:14 BP 110/68 06/29/20 08:05 Pulse Ox 94 L 06/29/20 08:05 Intake & Output 06/28/20 06/29/20 06/29/20 18:59 06:59 18:59 Intake Total 480 100 10 Output Total 600 800 Balance -120 100 -790 Weight 133.4 kg Intake: IV 10 Invasive Line 1 10 Intake, IV Titration 100 Amount cefTRIAXone 2 gm In 100 Sodium Chloride 0.9% 50 ml @ 100 mls/hr IVPB Q24H [facility] Rx#:[id number] Oral 480 0 Output: Urine 600 800 Other: Voiding Method Urinal Urinal Urinal Self-Catheterization Self-Catheterization Self-Catheterization # Voids 2 # Bowel Movements 1 - Labs CBC & Chem 7: 06/29/20 05:43 06/29/20 05:43 Labs: Abnormal Lab Results - Last 24 Hours (Table) 06/28/20 06/28/20 06/28/20 Range/Units 12:12 17:11 20:29 RBC (4.30-5.90) m/uL Hgb (13.0-17.5) gm/dL Hct (39.0-53.0) % Lymphocytes # (1.0-4.8) k/uL Sodium (137-145) mmol/L Chloride (98-107) mmol/L Carbon Dioxide (22-30) mmol/L BUN (9-20) mg/dL Creatinine (0.66-1.25) mg/dL Glucose (74-99) mg/dL POC Glucose (mg/dL) 142 H 135 H 206 H (75-99) mg/dL Calcium (8.4-10.2) mg/dL Magnesium (1.6-2.3) mg/dL 06/29/20 06/29/20 06/29/20 Range/Units 05:43 05:43 06:17 RBC 4.17 L (4.30-5.90) m/uL Hgb 12.1 L (13.0-17.5) gm/dL Hct 37.8 L (39.0-53.0) % Lymphocytes # 0.9 L (1.0-4.8) k/uL Sodium 136 L (137-145) mmol/L Chloride 109 H (98-107) mmol/L Carbon Dioxide 21 L (22-30) mmol/L BUN 43 H (9-20) mg/dL Creatinine 3.23 H (0.66-1.25) mg/dL Glucose 112 H (74-99) mg/dL POC Glucose (mg/dL) 126 H (75-99) mg/dL Calcium 8.2 L (8.4-10.2) mg/dL Magnesium 2.4 H (1.6-2.3) mg/dL Microbiology - Last 24 Hours (Table) 06/26/20 11:56 Urine Culture - Final Urine,Catheterized Escherichia coli 06/26/20 11:56 Blood Culture Gram Stain - Final Blood Blood Culture - Final Escherichia coli Assessment and Plan Plan: Assessment: 1. Acute kidney injury secondary to ATN secondary to severe sepsis. Renal fu nction improving. Creatinine 3.23 today. 2. Chronic kidney disease stage III with baseline creatinine the range of 1.5-2 secondary to chronic obstructive uropathy/urinary retention and diabetic kidney disease. 3. BPH status post TURP on June 10. Patient performs self catheterizations. 4. Severe sepsis secondary to E. coli UTI and bacteremia. Maintained on IV antibiotics. 5. Hypervolemic hyponatremia. Better. 6. Lower extremity edema. 7. Metabolic acidosis secondary to acute kidney injury and IV fluids. Maintained on oral sodium bicarbonate. 8. Diabetes mellitus. 9. Acute on chronic systolic CHF with ejection fraction of 35-40%. Plan: Lasix 40 mg IV once today. Continue to monitor renal function and urine output.
--- NOTE | 2020-06-29 11:55 | P.PN ---
Subjective Progress Note Date: 06/29/20 The pleasant 65-year-old gentleman who previously followed with Dr. VC Aquino in the office with a history of CAD with prior stenting of the diagonal branch, chronic kidney disease, diabetes, hypertension, hyperlipidemia. He recently underwent TURP which was complicated by rest for a failure and required mechanical ventilation for a few days. He was subsequently discharged home in stable condition. He presented back to the hospital this time for not feeling well. He was short of breath and feeling weak and tired as well as fatigue. He was diagnosed with UTI and acute kidney injury with a creatinine of 3.88. GFR 15. We're consulted to see the patient due to mildly abnormal troponins. Patient had no complaints of chest discomfort and EKG shows sinus rhythm without any significant ST or T-wave abnormalities. Renal function continues to be abnormal with a BUN of 43 and creatinine 3.23 which is elevated compared to his baseline. He has been advised at this time medical therapy. Echocardiogram Doppler done 2 days ago showed moderate global hypokinesis of the LV, moderately impaired LV systolic function with an ejection fraction between 35-40%, mild TR. Objective - Vital Signs Vital signs: Vital Signs Temp 98.9 F 06/29/20 08:05 Pulse 86 06/29/20 09:14 Resp 16 06/29/20 09:14 BP 110/68 06/29/20 08:05 Pulse Ox 94 L 06/29/20 08:05 Intake & Output 06/28/20 06/29/20 06/29/20 18:59 06:59 18:59 Intake Total 480 100 10 Output Total 600 800 Balance -120 100 -790 Weight 133.4 kg Intake: IV 10 Invasive Line 1 10 Intake, IV Titration 100 Amount cefTRIAXone 2 gm In 100 Sodium Chloride 0.9% 50 ml @ 100 mls/hr IVPB Q24H [facility] Rx#:[id number] Oral 480 0 Output: Urine 600 800 Other: Voiding Method Urinal Urinal Urinal Self-Catheterization Self-Catheterization Self-Catheterization # Voids 2 # Bowel Movements 1 - Exam PHYSICAL EXAMINATION: HEENT: Head is atraumatic, normocephalic. Pupils equal, round. Neck is supple. There is no elevated jugular venous pressure. HEART EXAMINATION: Heart sounds regular, S1 and S2 normal. No murmur or gallop heard. CHEST EXAMINATION: Lungs are clear to auscultation. No chest wall tenderness is noted on palpation or with deep breathing. ABDOMEN: Soft, nontender. Bowel sounds are heard. No organomegaly noted. EXTREMITIES: 2+ peripheral pulses with evidence of mild to moderate peripheral edema and no calf tenderness noted. NEUROLOGIC patient is awake, alert and oriented x3. . - Labs CBC & Chem 7: 06/29/20 05:43 06/29/20 05:43 Labs: Abnormal Lab Results - Last 24 Hours (Table) 06/28/20 06/28/20 06/28/20 Range/Units 12:12 17:11 20:29 RBC (4.30-5.90) m/uL Hgb (13.0-17.5) gm/dL Hct (39.0-53.0) % Lymphocytes # (1.0-4.8) k/uL Sodium (137-145) mmol/L Chloride (98-107) mmol/L Carbon Dioxide (22-30) mmol/L BUN (9-20) mg/dL Creatinine (0.66-1.25) mg/dL Glucose (74-99) mg/dL POC Glucose (mg/dL) 142 H 135 H 206 H (75-99) mg/dL Calcium (8.4-10.2) mg/dL Magnesium (1.6-2.3) mg/dL 06/29/20 06/29/20 06/29/20 Range/Units 05:43 05:43 06:17 RBC 4.17 L (4.30-5.90) m/uL Hgb 12.1 L (13.0-17.5) gm/dL Hct 37.8 L (39.0-53.0) % Lymphocytes # 0.9 L (1.0-4.8) k/uL Sodium 136 L (137-145) mmol/L Chloride 109 H (98-107) mmol/L Carbon Dioxide 21 L (22-30) mmol/L BUN 43 H (9-20) mg/dL Creatinine 3.23 H (0.66-1.25) mg/dL Glucose 112 H (74-99) mg/dL POC Glucose (mg/dL) 126 H (75-99) mg/dL Calcium 8.2 L (8.4-10.2) mg/dL Magnesium 2.4 H (1.6-2.3) mg/dL Microbiology - Last 24 Hours (Table) 06/26/20 11:56 Urine Culture - Final Urine,Catheterized Escherichia coli 06/26/20 11:56 Blood Culture Gram Stain - Final Blood Blood Culture - Final Escherichia coli Assessment and Plan Assessment: #1 urosepsis #2 acute on chronic renal failure #3 on the elevated troponin #4 CAD #5 cardiomyopathy of unclear etiology #6 status post TURP Plan: From cardiology's perspective, due to acute on chronic kidney failure we will continue to treat the patient medically. If the blood pressure remained stable we will add low-dose beta kermit. Continue to monitor renal function. We will continue to follow the patient and write further recommendations accordingly. SNOW GROOMER note has been reviewed, I agree with a documented findings and plan of care. Patient was seen and examined.
[2020-06-29 12:06] LABS: Glucose,Whole Blood 132 mg/dL (75-99)
--- NOTE | 2020-06-29 13:25 | P.GSCN ---
History of Present Illness Consult date: 06/29/20 History of present illness: CHIEF COMPLAINT: Liver abscess HISTORY OF PRESENT ILLNESS: This is a 65-year-old gentleman with a known past medical history of TURP 2 weeks ago with respiratory failure and requiring ICU care. He also has a history of obstructive sleep apnea, diabetes, hypertension, chronic kidney disease, coronary artery disease with previous stent placement. Patient presented to the emergency room with complaint of worsening shortness of breath. He was admitted to the hospital with UTI with sepsis. He has a positive urine culture and blood culture with E. coli. He is on IV antibiotics. Patient had a CAT scan of the chest abdomen and pelvis in the concerns of a liver abscess. And surgical consult was placed regarding the liver abscess. Austin kendall denies any abdominal pain. Denies any nausea or vomiting. He reports having bowel movements. PAST MEDICAL HISTORY: See list. PAST SURGICAL HISTORY: See list. MEDICATIONS: See list. ALLERGIES: See list. SOCIAL HISTORY: No illicit drug use. REVIEW OF SYSTEMS: CONSTITUTIONAL: Denies fever or chills. HEENT: Denies blurred vision, vision changes, or eye pain. Denies hemoptysis CARDIOVASCULAR: Denies chest pain or pressure. RESPIRATORY: No shortness of breath. GASTROINTESTINAL: See HPI for pertinent findings HEMATOLOGIC: Denies bleeding disorders. GENITOURINARY: Denies any blood in urine or increased urinary frequency. SKIN: Denies pruitis. Denies rash. PHYSICAL EXAM: VITAL SIGNS: Reviewed GENERAL: Well-developed in no acute distress. HEENT: No sclera icterus. Extraocular movements grossly intact. Moist buccal mucosa. Head is atraumatic, normocephalic. No nasal drainage. ABDOMEN: Soft. Obese. Nondistended. Nontender NEUROLOGIC: Alert and oriented. Cranial nerves II through XII grossly intact. LABORATORY DATA: WBC 17.2 on admission now normal at 7.2. Creatinine 3.23 AST 56 ALT 53 alk phos 153 total bilirubin 0.9 IMAGING: Computed tomography scan chest abdomen and pelvis: Large low density mass in the superior right lobe of the liver. consider possibilities of a liver abscess and less likely tumor. Nonobstructing right renal calculus. Minimal right periureteral edema. Abdominal ultrasound: Complex cystic mass in the right hepatic dome posterior segment redemonstrated. Differential includes cystic neoplasm, multilocular abscess not entirely excluded though not typical appearance of a drainable thick walled well-formed abscess. ASSESSMENT: 1. Liver abscess PLAN: -Order MRI without contrast for further evaluation of a liver abscess -Consult interventional radiology for possible drainage of liver abscess Physician Adjunct Art History Instructor note has been reviewed by physician. Signing provider agrees with the documented findings, assessment, and plan of care. Past Medical History Past Medical History: Coronary Artery Disease (CAD), CVA/TIA, Diabetes Mellitus, Hyperlipidemia, Hypertension, Prostate Disorder, Renal Disease, Sleep Apnea/CPAP/BIPAP Additional Past Medical History / Comment(s): 2017 BPH with urinary retention/intermittent self cathing-hydornephrosis/had TURP 06/10/20 and had to be re-intubated in recovery room/vented and sent to ICU-pt states he still self caths occasionally, UTIs, vertigo/work up showed 3 prior CVAs per pt, NIDDM type II, History of Any Multi-Drug Resistant Organisms: None Reported Past Surgical History: Heart Catheterization With Stent Additional Past Surgical History / Comment(s): 06/10/20 TURP, 2016 PCI with stent, R mid finger partial amp, colonoscopy with benign colonoscopy. Past Anesthesia/Blood Transfusion Reactions: No Reported Reaction Additional Past Anesthesia/Blood Transfusion Reaction / Comm: 06/10/20 pt had TURP, was re-intubated/vented in recovery room. Date of Last Stent Placement:: 09-02-16 Smoking Status: Former smoker - Past Family History Mother Family Medical History: Diabetes Mellitus, Hypertension Additional Family Medical History / Comment(s): varicose veins Father Family Medical History: Hyperlipidemia, Hypertension Additional Family Medical History / Comment(s): enlarged heart with leaky valve Medications and Allergies Home Medications Medication Instructions Recorded Confirmed Type Aspirin 81 mg PO DAILY 08/29/16 06/26/20 History Tamsulosin [Flomax] 0.4 mg PO BID 08/29/16 06/26/20 History Nitroglycerin Sl Tabs [Nitrostat] 0.4 mg SUBLINGUAL Q5M PRN #25 tab 09/03/16 06/26/20 Rx Atorvastatin [Lipitor] 80 mg PO HS 04/17/17 06/26/20 History Finasteride [Proscar] 5 mg PO DAILY 04/17/17 06/26/20 History lisinopriL [Zestril] 2.5 mg PO DAILY 04/17/17 06/26/20 History diazePAM [Valium] 5 mg PO BID PRN #6 tab 04/20/17 06/26/20 Rx Empagliflozin/Linagliptin 1 tab PO DAILY 06/05/20 06/26/20 History [Glyxambi 10 mg-5 mg Tablet] Ergocalciferol [Vitamin D2] 50,000 unit PO Q30D 06/05/20 06/26/20 History Pioglitazone [Actos] 30 mg PO DAILY 06/05/20 06/26/20 History glipiZIDE [Glucotrol] 10 mg PO AC-BRKFST 06/05/20 06/26/20 History Allergies Allergy/AdvReac Type Severity Reaction Status Date / Time No Known Allergies Allergy Verified 06/26/20 12:39 Surgical - Exam Vital Signs Temp Pulse Resp BP Pulse Ox 100.5 F H 92 24 99/66 99 06/26/20 11:18 06/26/20 11:18 06/26/20 11:18 06/26/20 11:18 06/26/20 11:18 Results - Labs 06/29/20 05:43 06/29/20 05:43 Abnormal Lab Results - Last 24 Hours (Table) 06/28/20 06/28/20 06/29/20 Range/Units 17:11 20:29 05:43 RBC 4.17 L (4.30-5.90) m/uL Hgb 12.1 L (13.0-17.5) gm/dL Hct 37.8 L (39.0-53.0) % Lymphocytes # 0.9 L (1.0-4.8) k/uL Sodium (137-145) mmol/L Chloride (98-107) mmol/L Carbon Dioxide (22-30) mmol/L BUN (9-20) mg/dL Creatinine (0.66-1.25) mg/dL Glucose (74-99) mg/dL POC Glucose (mg/dL) 135 H 206 H (75-99) mg/dL Calcium (8.4-10.2) mg/dL Magnesium (1.6-2.3) mg/dL 06/29/20 06/29/20 06/29/20 Range/Units 05:43 06:17 11:58 RBC (4.30-5.90) m/uL Hgb (13.0-17.5) gm/dL Hct (39.0-53.0) % Lymphocytes # (1.0-4.8) k/uL Sodium 136 L (137-145) mmol/L Chloride 109 H (98-107) mmol/L Carbon Dioxide 21 L (22-30) mmol/L BUN 43 H (9-20) mg/dL Creatinine 3.23 H (0.66-1.25) mg/dL Glucose 112 H (74-99) mg/dL POC Glucose (mg/dL) 126 H 132 H (75-99) mg/dL Calcium 8.2 L (8.4-10.2) mg/dL Magnesium 2.4 H (1.6-2.3) mg/dL Microbiology - Last 24 Hours (Table) 06/26/20 11:56 Urine Culture - Final Urine,Catheterized Escherichia coli 06/26/20 11:56 Blood Culture Gram Stain - Final Blood Blood Culture - Final Escherichia coli Diabetes panel 06/29/20 Range/Units 05:43 Sodium 136 L (137-145) mmol/L Potassium 4.7 (3.5-5.1) mmol/L Chloride 109 H (98-107) mmol/L Carbon Dioxide 21 L (22-30) mmol/L BUN 43 H (9-20) mg/dL Creatinine 3.23 H (0.66-1.25) mg/dL Glucose 112 H (74-99) mg/dL Calcium 8.2 L (8.4-10.2) mg/dL Calcium panel 06/29/20 Range/Units 05:43 Calcium 8.2 L (8.4-10.2) mg/dL Pituitary panel 06/29/20 Range/Units 05:43 Sodium 136 L (137-145) mmol/L Potassium 4.7 (3.5-5.1) mmol/L Chloride 109 H (98-107) mmol/L Carbon Dioxide 21 L (22-30) mmol/L BUN 43 H (9-20) mg/dL Creatinine 3.23 H (0.66-1.25) mg/dL Glucose 112 H (74-99) mg/dL Calcium 8.2 L (8.4-10.2) mg/dL Adrenal panel 06/29/20 Range/Units 05:43 Sodium 136 L (137-145) mmol/L Potassium 4.7 (3.5-5.1) mmol/L Chloride 109 H (98-107) mmol/L Carbon Dioxide 21 L (22-30) mmol/L BUN 43 H (9-20) mg/dL Creatinine 3.23 H (0.66-1.25) mg/dL Glucose 112 H (74-99) mg/dL Calcium 8.2 L (8.4-10.2) mg/dL
--- NOTE | 2020-06-29 13:51 | CDI ---
Documentation Clarification Form Date: 06/29/2020 01:37:40 PM From: Kourtney HendricksEdmondsKRISTEN, CCDS Admit Date: 06/26/2020 02:02:00 PM Patient Name: Jose Maria Grissom Visit Number: [id number] Discharge Date: ATTENTION: The Clinical Documentation Specialists (CDI) and [facility] Coding Staff appreciate your assistance in clarifying documentation. Please respond to the clarification below the line at the bottom and electronically sign. The CDI & [facility] Coding staff will review the response and follow-up if needed. Please note: Queries are made part of the Legal Health Record. If you have any questions, please contact the author of this message via ITS. Dr. Luna Damon: Per the 06/27 Nephrology Consult: "Patient performs self catheterizations." Per the 06/28 Infectious Disease Consult: "Voiding method: self catheterization." History/Risk Factors: BPH with urinary frequency & retention, recent TURP & history of UTIs. Clinical Indicators: Presented to the ED on 06/26 with SOB. Recent TURP & postoperative respiratory failure. Started Bactrim yesterday per PCP per urinalysis results. Admitted with Sepsis & UTI. Urinalysis 06/26: Yellow, Turbid, 3+ Protein, 3+ Glucose, Moderate Blood, Large Esterase, RBC 31^, WBC >182. Urine culture 06/26: E Coli. Blood culture 06/26: E Coli Lab results 06/26: WBC 17.2^, neut 14.9^ COVID negative. Treatment: IV Rocephin, IV fluid 1,000 mls @ 50/hr, Heparin 5,000 unit SQ q12, In your professional opinion, can you please clarify the etiology of the UTI, if known? UTI related to Straight Catheterization UTI not related to Straight Catheterization Other condition, please specify Unable to determine (Last Revision: February 2018) _UTI not related to Straight Catheterization MTDD
--- NOTE | 2020-06-29 14:36 | P.PN ---
Subjective Progress Note Date: 06/29/20 Principal diagnosis: gram-negative sepsis This is a 65-year-old white male with history of diabetes, hypertension, prostate disorder, obstructive sleep apnea syndrome maintained on CPAP/BiPAP. Patient was evaluated in 2016 by urology for elevated creatinine and bilateral hydronephrosis. Catheter drainage done and the patient developed significant improvement in his renal profile with creatinine down to 1.55. Patient continues to have difficulty voiding, and this was managed with an indwelling catheter initially, then he was switched later on to intermittent catheterizat ion in 2017. Patient was treated with a combination of finasteride and tamsulosin but he continued to have persistently elevated postvoid residual. Considering the persistent urinary retention, patient underwent TURP . Postoperatively, the patient developed what seemed to be hypoxic and hypercapnic respiratory failure with pulmonary edema. Patient was extubated reintubated postoperatively then every extubated and placed Echocardiogram in 2017 showed good LV function with ejection fraction of 55%. And there was no evidence of pulmonary hypertension. In 2015, patient had stenting of the second diagonal branch of the LAD done by Dr. Espinoza. The patient was discharged home. The patient continued to undergo self-catheterization. He came into the hospital again not feeling well. He was having some increased shortness of breath. He was having no dizziness or lightheadedness or heart fluttering. No chest pain. In the ED, the patient had a d-dimer that was abnormal. He was given a VQ scan did came back of a low probability for pulmonary embolism. Chest exit showed no acute abnormalities. His creatinine came back elevated. His UA was abnormal and the gram negative bacillus was also cultured in his blood. He was started on IV Rocephin. The blood pressure is marginally low at this point in time. His creatinine is up to 3.88. EKG showing a normal sinus mechanism. His white cell count is at 14.8. Sodium is at 128. The CAT scan of the abdomen and pelvis was done and showed a large low-density mass in the superior right lobe of the liver suspicious for an underlying abscess formation in the liver. There is also bilateral perinephric edema, nonobstructive right renal calculus, marginal right periurethral erythema and there is also deformity of the urinary bladder as well as air bubbles intramural air. Bilateral pyelonephritis was also considered. The patient is seen today 07/08/2020 in follow-up on the selective care unit. He is currently sitting up in a chair at the bedside. Awake and alert in no acute distress. Maintaining good O2 saturations in the 90s on room air. He's been afebrile. Hemodynamically stable. Blood cultures positive for E. coli. Urine culture positive for E. coli. White count 11.0. Hemoglobin 12.7. Sodium 133. Potassium 4.6. Creatinine 3.79. He is currently on ceftriaxone. On 06/29/2020 patient seen in follow-up on selective care unit, he is awake and alert, in no acute distress, he is currently sitting up in the recliner, he remains on IV Rocephin for E. coli bacteremia, with a blood cultures positive for E. coli and urine culture positive for E. coli, he currently denies any acute distress, no abdominal pain, no nausea or vomiting, his abdominal ultrasound showed complex cystic mass in the right hepatic dome posterior segment, with the suggestion of multi-locular abscess, or cystic neoplasm. his labs have been reviewed, white blood cell count is 7.2, hemoglobin is 12.1, sodium is 136, potassium is 4.7, chloride is 109, CO2 is 21, BUN is 43, creatinine is 3.23.surgical services were asked to see the patient in consultation and currently MRI without contrast is pending for evaluation of a liver abscess. Patient denies any shortness of breath, his vital signs have been stable, patient is afebrile Objective - Vital Signs Vital signs: Vital Signs Temp 97.6 F 06/29/20 12:00 Pulse 90 06/29/20 12:00 Resp 16 06/29/20 12:00 BP 112/66 06/29/20 12:00 Pulse Ox 96 06/29/20 12:00 Intake & Output 06/28/20 06/29/20 06/29/20 18:59 06:59 18:59 Intake Total 480 100 20 Output Total 600 800 Balance -120 100 -780 Weight 133.4 kg Intake: IV 20 Invasive Line 1 20 Intake, IV Titration 100 Amount cefTRIAXone 2 gm In 100 Sodium Chloride 0.9% 50 ml @ 100 mls/hr IVPB Q24H [facility] Rx#:[id number] Oral 480 0 Output: Urine 600 800 Other: Voiding Method Urinal Urinal Urinal Self-Catheterization Self-Catheterization Self-Catheterization # Voids 2 # Bowel Movements 1 - Exam GENERAL EXAM: Alert, very pleasant, 65-year-old white male on room air, with a pulse ox of 96%comfortable in no apparent distress. HEAD: Normocephalic/atraumatic. EYES: Normal reaction of pupils, equal size. Conjunctiva pink, sclera white. NOSE: Clear with pink turbinates. THROAT: No erythema or exudates. NECK: No masses, no JVD, no thyroid enlargement, no adenopathy. CHEST: No chest wall deformity. Symmetrical expansion. LUNGS: Equal air entry with no crackles, wheeze, rhonchi or dullness. CVS: Regular rate and rhythm, normal S1 and S2, no gallops, no murmurs, no rubs ABDOMEN: Soft, nontender. No hepatosplenomegaly, normal bowel sounds, no guarding or rigidity. EXTREMITIES: No clubbing, no edema, no cyanosis, 2+ pulses and upper and lower extremities. MUSCULOSKELETAL: Muscle strength and tone normal. SPINE: No scoliosis or deformity SKIN: No rashes CENTRAL NERVOUS SYSTEM: Alert and oriented -3. No focal deficits, tone is normal in all 4 extremities. PSYCHIATRIC: Alert and oriented -3. Appropriate affect. Intact judgment and insight. - Labs CBC & Chem 7: 06/29/20 05:43 06/29/20 05:43 Labs: Abnormal Lab Results - Last 24 Hours (Table) 06/28/20 06/28/20 06/29/20 Range/Units 17:11 20:29 05:43 RBC 4.17 L (4.30-5.90) m/uL Hgb 12.1 L (13.0-17.5) gm/dL Hct 37.8 L (39.0-53.0) % Lymphocytes # 0.9 L (1.0-4.8) k/uL Sodium (137-145) mmol/L Chloride (98-107) mmol/L Carbon Dioxide (22-30) mmol/L BUN (9-20) mg/dL Creatinine (0.66-1.25) mg/dL Glucose (74-99) mg/dL POC Glucose (mg/dL) 135 H 206 H (75-99) mg/dL Calcium (8.4-10.2) mg/dL Magnesium (1.6-2.3) mg/dL 08/09/0806/29/20 06/29/20 Range/Units 05:43 06:17 11:58 RBC (4.30-5.90) m/uL Hgb (13.0-17.5) gm/dL Hct (39.0-53.0) % Lymphocytes # (1.0-4.8) k/uL Sodium 136 L (137-145) mmol/L Chloride 109 H (98-107) mmol/L Carbon Dioxide 21 L (22-30) mmol/L BUN 43 H (9-20) mg/dL Creatinine 3.23 H (0.66-1.25) mg/dL Glucose 112 H (74-99) mg/dL POC Glucose (mg/dL) 126 H 132 H (75-99) mg/dL Calcium 8.2 L (8.4-10.2) mg/dL Magnesium 2.4 H (1.6-2.3) mg/dL Microbiology - Last 24 Hours (Table) 06/26/20 11:56 Urine Culture - Final Urine,Catheterized Escherichia coli Assessment and Plan Plan: 1 sepsis secondary to E. coli. This is likely of a urinary source. Consider underlying pyelonephritis especially with the above-mentioned CAT scan images. Also, there is a concern of a liver abscess . The patient is hemodynamically stable. The patient is is afebrile. The patient has some mild leukocytosis. The patient on IV Rocephin. 2 liver mass/abscess, please refer to the CAT scan findings of the abdomen 3 acute on chronic kidney injury 4 chronic urinary retention secondary to BPH post TURP, the patient is still undergoing self-catheterization 5 chronic diastolic heart failure currently inactive in stable 6 morbid obesity with a BMI of 42.8 7 coronary artery disease with previous stent placement in 2016 8 obstructive sleep apnea 9 diabetes mellitus 10 hypertension 11 non-anion gap metabolic acidosis with a bicarb level of 17. The sodium level is at 128 12 mild leukocytosis 13 fever Plan: Continue current medical management, continue IV antibiotics, clinically patient is afebrile, denies any abdominal pain, denies fever or chills, we'll consult the surgical services for evaluation of cystic mass possibly liver abscess, and consulted interventional radiology for CT-guided percutaneous drainage of the hepatic abscess. We'll continue to follow patient's clinical course. follow-up blood work in the morning electrolytes and renal profile. no complaints of shortness of breath, and CT chest was clear of any consolidation, no evidence of pulmonary mass or pleural effusion. No pulmonary complaints at this time, I performed a history & physical examination of the patient and discussed their management with my nurse practitioner, Judy Morse. I reviewed the nurse practitioner's note and agree with the documented findings and plan of care. L kanu sounds are positive for diminished breath sounds The findings and the impression was discussed with the patient. I attest to the documentation by the nurse practitioner. Time with Patient: Less than 30
[2020-06-29] MEDS: PANTOPRAZOLE 40 MG TABLET PO SCH (16:09)
[2020-06-29 17:03] LABS: Glucose,Whole Blood 154 mg/dL (75-99)
--- NOTE | 2020-06-29 17:18 | PN ---
PROGRESS NOTE DATE OF SERVICE: 06/29/2020 REASON FOR FOLLOWUP: E coli bacteremia. INTERVAL HISTORY: Patient is currently afebrile. The patient has been breathing comfortably. Patient denies having any chest pain. No shortness of breath or cough. No pain in the right upper quadrant area. No nausea, no vomiting. No abdominal pain. No diarrhea. PHYSICAL EXAMINATION: Blood pressure 102/56, pulse of 87, temperature 98.6, 95% on room air. General description is a middle-aged male, up in the bed in no distress. RESPIRATORY SYSTEM: Unlabored breathing, decreased breath sounds at the base, no wheeze. HEART: S1, S2. Regular rate and rhythm. ABDOMEN: Soft, no tenderness. No guarding or rigidity. LABS: Hemoglobin is 12.1, white count of 7.2, BUN of 43, creatinine 3.23. Blood and urine is E coli. DIAGNOSTIC IMPRESSION AND PLAN: Patient with an E coli bacteremia. Source is likely urine as the patient clinically same pathogen in both the urine and in the blood; however the ultrasound and the CT has been suspicious for liver abscess. Unfortunately, we cannot do a contrast-enhanced CT because of his kidney function. Will discuss the images with the radiologist for possible aspirate and continue supportive care. Continue with Rocephin 2 g daily for now. MMODL / IJN: [id number] /
[2020-06-29 20:49] LABS: Glucose,Whole Blood 202 mg/dL (75-99)
--- NOTE | 2020-06-29 21:13 | P.PN ---
Progress Note - Text Progress Note Date: 06/29/20 The patient is afebrile. He says that he feels much better than he did last week. In retrospect he says that he believes that he began feeling ill 6 or 7 days ago when he lost his appetite. He is performing intermittent catheterization and the urine draining from his bladder is grossly clear. He says that he is trying to not let his bladder distended to over 300 cc. White blood count is 7200. Bicarbonate is 21. BUN/creatinine are slightly improved at 43/3.23. The patient did have an Escherichia coli urinary tract infection associated with intermittent catheterization prior to his TURP and was started on Bactrim 3 days prior to the TURP based on the culture and sensitivity. He was continued on the Bactrim postop as well. The Escherichia coli growing in his blood and urine is no longer sensitive to Bactrim but fortunately is susceptible to ceftriaxone. It is possible that he reinfected himself postoperatively when he restarted intermittent catheterization. For the time being the patient will continue intermittent catheterization but I am hopeful that he will be able to begin spontaneous voiding as he had been doing immediately following the TURP. I would suspect that he will continue to have incomplete bladder emptying but his postvoid residuals are less than 200 or 300 cc I believe this would be acceptable.
[2020-06-29] MEDS: ATORVASTATIN 80 MG TAB PO SCH (21:19)
--- NOTE | 2020-06-30 02:04 | P.PN ---
Subjective Progress Note Date: 06/29/20 Principal diagnosis: Dyspnea Mr. Grissom is a 65-year-old male with history of hypertension, diabetes, prostate disorder, obstructive sleep apnea on CPAP, presenting with a chief complaint of difficulty in breathing. Patient recently had TURP by Dr. Jimenez, couple of weeks back and postoperatively the patient had respiratory failure was mechanically ventilated overnight and discharged the next day after improving. After going home patient felt better but subsequently developed increased difficulty in breathing and at the time of admission was found to have possible UTI and early sepsis so admitted for further management. On 06/27/2020 -Today the patient is lying in bed appears to be in no acute distress. Patient complains of generalized weakness. He also has difficulty in breathing with activity but better than when he came in. Denies having any chest pain or palpitations. Patient denies having any dysuria or hematuria. No abdominal pain nausea vomiting or diarrhea. On reviewing the labs patient's white count is 14.8, hemoglobin 12.7, sodium 128, potassium 4.6, chloride 99, bicarb 17, BUN 45, creatinine 3.88. On 06/28/2020- no acute events reported by nursing staff overnight. patient is lying in bed appears to be no acute distress. His is at the bedside. Patient states that his generalized weakness has improved and that his breathing has improved as well. Patient denies having any chest pain or palpitations. No lower extremity swelling. Patient's vitals are been stable OVERNIGHT, T-max 98.4, heart rate 95, blood pressure 109/66, saturating at 96% on room air. Patient's urine and blood culture positive for gram-negative bacilli, E. coli respectively. Patient's white count has been trending down from 17-14-11 today. Creatinine at 3.79 today. On 06/29/20 - Patient had no complaints overnight. She had an ultrasound of the abdomen done yesterday showing complex cystic mass in the right hepatic dome posterior segment redemonstrated. On review of systems-patient denied having any fevers chills or rigors. No cough or difficulty breathing. No chest pain or palpitations. No abdominal pain nausea vomiting or diarrhea. No dysuria or hematuria. Patient's vitals within normal limits. Labs reviewed showing creatinine trending down to 3.23. Active Medications Hydrocodone Bitart/Acetaminophen (Martin 5-325) 1 each PO Q6HR PRN PRN Reason: Pain Aspirin (Aspirin) 81 mg PO DAILY [facility] Last Admin: 06/29/20 09:17 Dose: 81 mg Documented by: Atorvastatin Calcium (Lipitor) 80 mg PO HS [facility] Last Admin: 06/29/20 21:19 Dose: 80 mg Documented by: Diazepam (Valium) 5 mg PO BID PRN PRN Reason: Motion Sickness Ergocalciferol (Vitamin D2) 50,000 unit PO Q30D [facility] Finasteride (Proscar) 5 mg PO DAILY [facility] Last Admin: 06/29/20 09:17 Dose: 5 mg Documented by: Heparin Sodium (Porcine) (Heparin) 5,000 unit SQ Q12HR [facility] Last Admin: 06/29/20 21:20 Dose: 5,000 unit Documented by: Hydromorphone HCl (Dilaudid) 0.5 mg IVP Q3HR PRN PRN Reason: Severe Pain Ceftriaxone Sodium 2 gm/ (Sodium Chloride) 50 mls @ 100 mls/hr IVPB Q24H [facility] Last Admin: 06/29/20 21:20 Dose: 100 mls/hr Documented by: Insulin Aspart (Novolog) 0 unit SQ ACHS [facility]; Protocol Last Admin: 06/29/20 21:20 Dose: 2 unit Documented by: Naloxone HCl (Narcan) 0.2 mg IV Q2M PRN PRN Reason: Opioid Reversal Nitroglycerin (Nitrostat) 0.4 mg SUBLINGUAL Q5M PRN PRN Reason: Chest Pain Pantoprazole Sodium (Protonix) 40 mg PO AC-BID [facility] Last Admin: 06/29/20 16:09 Dose: 40 mg Documented by: Pioglitazone HCl (Actos) 30 mg PO DAILY [facility] Last Admin: 06/29/20 09:17 Dose: 30 mg Documented by: Sodium Bicarbonate (Sodium Bicarbonate Tab) 650 mg PO TID [facility] Last Admin: 06/29/20 21:20 Dose: 650 mg Documented by: Tamsulosin HCl (Flomax) 0.4 mg PO BID [facility] Last Admin: 06/29/20 21:20 Dose: 0.4 mg Documented by: Temazepam (Restoril) 15 mg PO HS PRN PRN Reason: Insomnia Objective - Vital Signs Vital signs: Vital Signs Temp 99.1 F 06/29/20 23:28 Pulse 85 06/29/20 23:28 Resp 18 06/29/20 23:28 BP 119/78 06/29/20 23:28 Pulse Ox 97 06/29/20 23:28 Intake & Output 06/29/20 06/29/20 06/30/20 06:59 18:59 06:59 Intake Total 100 1710 100 Output Total 800 Balance 100 910 100 Weight 133.4 kg Intake: IV 30 Invasive Line 1 30 Intake, IV Titration 100 100 Amount cefTRIAXone 2 gm In 100 100 Sodium Chloride 0.9% 50 ml @ 100 mls/hr IVPB Q24H [facility] Rx#:[id number] Oral 1680 Output: Urine 800 Other: Voiding Method Urinal Urinal Urinal Self-Catheterization Self-Catheterization Self-Catheterization # Voids 2 1 - Exam PHYSICAL EXAM Gen: lying in bed, well-developed, well-nourished. Morbidly obese. HEENT: Head is atraumatic, normocephalic. Pupils equal, round. Sclerae is anicteric. NECK: Supple. No JVD. No lymphadenopathy. No thyromegaly. LUNGS: Breath sounds diminished at the bases with a few scattered rhonchi noted. HEART: Regular rate and rhythm. No murmur. ABDOMEN: Soft. Obese. Bowel sounds are present. No masses. No tenderness. EXTREMITIES: No calf tenderness. no lower extremity edema NEUROLOGICAL: Patient is awake, alert and oriented x3. No focal deficits - Labs CBC & Chem 7: 06/29/20 05:43 06/29/20 05:43 Labs: Abnormal Lab Results - Last 24 Hours (Table) 06/29/20 06/29/20 06/29/20 Range/Units 05:43 05:43 06:17 RBC 4.17 L (4.30-5.90) m/uL Hgb 12.1 L (13.0-17.5) gm/dL Hct 37.8 L (39.0-53.0) % Lymphocytes # 0.9 L (1.0-4.8) k/uL Sodium 136 L (137-145) mmol/L Chloride 109 H (98-107) mmol/L Carbon Dioxide 21 L (22-30) mmol/L BUN 43 H (9-20) mg/dL Creatinine 3.23 H (0.66-1.25) mg/dL Glucose 112 H (74-99) mg/dL POC Glucose (mg/dL) 126 H (75-99) mg/dL Calcium 8.2 L (8.4-10.2) mg/dL Magnesium 2.4 H (1.6-2.3) mg/dL 06/29/20 06/29/20 06/29/20 Range/Units 11:58 17:02 20:49 RBC (4.30-5.90) m/uL Hgb (13.0-17.5) gm/dL Hct (39.0-53.0) % Lymphocytes # (1.0-4.8) k/uL Sodium (137-145) mmol/L Chloride (98-107) mmol/L Carbon Dioxide (22-30) mmol/L BUN (9-20) mg/dL Creatinine (0.66-1.25) mg/dL Glucose (74-99) mg/dL POC Glucose (mg/dL) 132 H 154 H 202 H (75-99) mg/dL Calcium (8.4-10.2) mg/dL Magnesium (1.6-2.3) mg/dL Microbiology - Last 24 Hours (Table) 06/28/20 15:29 Blood Culture - Preliminary Blood No Growth after 24 hours 06/26/20 11:56 Urine Culture - Final Urine,Catheterized Escherichia coli Assessment and Plan Assessment: ASSESSMENT Sepsis secondary to UTI due to E. coli Acute kidney injury-possibly secondary to above Systoilc CHF EF 35-40 % not in exacerbation Chronic kidney disease stage III History of recent TURP procedure Hyponatremia Leukocytosis Mildly elevated troponins Hypertension Hyperlipidemia Type 2 diabetes mellitus Obstructive sleep apnea Coronary artery disease status post stenting Nicotine dependence remote history Obesity with BMI 42.8 PLAN: Patient had VQ scan that was showing low probability for PE, C. difficile has been negative. Nephrology on board making adjustments in his fluids due to ongoing hyponatremia and hypokalemia. Patient is currently on ceftriaxone for his UTI. Blood cultures positive for E. coli as well as urine cultures showing gram-negative bacilli. Repeat blood cultures obtained today. Echocardiogram showing left ventricular systolic function moderately impaired with EF 35 to 40%. There is also diastolic filling abnormality. Moderate global hypokinesis of left ventricle . Continue with the current medication regimen. Interventional radiology is consulted for CT-guided drainage of the hepatic abscess, but requested an MRI that is currently pending.The treatment plan was discussed with the patient and his at bedside in detail today. Further recommendations to follow depending on the progress of the patient. Overall prognosis is guarded due to chronic medical conditions.
[2020-06-30 06:19] LABS: Glucose,Whole Blood 131 mg/dL (75-99)
[2020-06-30] MEDS: INSULIN ASPART (NovoLOG) 100 UNIT/ML VIAL SQ SCH ×4 (06:46→20:09)
[2020-06-30] MEDS: PANTOPRAZOLE 40 MG TABLET PO SCH ×2 (06:50→16:49)
[2020-06-30 07:53] LABS: Calcium 8.8 mg/dL (8.4-10.2); Magnesium 2.3 mg/dL (1.6-2.3); Potassium 4.9 mmol/L (3.5-5.1)
[2020-06-30] MEDS: HEPARIN SODIUM,PORCINE 5,000 UNIT/ML 1 ML VIAL SQ SCH ×2 (09:18→20:02)
[2020-06-30] MEDS: ASPIRIN 81 MG PO SCH (09:18)
[2020-06-30] MEDS: FINASTERIDE 5 MG TAB PO SCH (09:18)
[2020-06-30] MEDS: TAMSULOSIN 0.4 MG CAP.ER.24H PO SCH ×2 (09:18→20:02)
[2020-06-30] MEDS: PIOGLITAZONE 30 MG TAB PO SCH (09:18)
[2020-06-30] MEDS: SODIUM BICARBONATE TAB 650 MG TAB PO SCH ×3 (09:18→20:02)
--- NOTE | 2020-06-30 10:32 | P.PN ---
Subjective Progress Note Date: 06/30/20 CHIEF COMPLAINT: Liver abscess HISTORY OF PRESENT ILLNESS: Patient denies any abdominal pain. Denies any nausea or vomiting. Reports having bowel movements. Patient is unable to have MRI of the liver completed because he is unable to fit in the MRI. Interventional radiology planning to proceed with drain placement for liver abscess. Patient is afebrile. PHYSICAL EXAM: VITAL SIGNS: Reviewed. GENERAL: Well-developed in no acute distress. HEENT: No sclera icterus. Extraocular movements grossly intact. Moist buccal mucosa. Head is atraumatic, normocephalic. ABDOMEN: Soft. Distended. Obese. Nontender. NEUROLOGIC: Alert and oriented. Cranial nerves II through XII grossly intact. ASSESSMENT: 1. Liver abscess PLAN: -Interventional radiology to place drainage tube for liver abscess [employer] note has been reviewed by physician. Signing provider agrees with the documented findings, assessment, and plan of care. Objective - Vital Signs Vital signs: Vital Signs Temp 98.7 F 06/30/20 09:14 Pulse 74 06/30/20 10:09 Resp 18 06/30/20 10:09 BP 95/53 06/30/20 10:09 Pulse Ox 95 06/30/20 10:09 Intake & Output 06/29/20 06/30/20 06/30/20 18:59 06:59 18:59 Intake Total 1710 100 310 Output Total 800 600 Balance 910 100 -290 Weight 130.7 kg Intake: IV 30 10 Invasive Line 1 30 10 Intake, IV Titration 100 Amount cefTRIAXone 2 gm In 100 Sodium Chloride 0.9% 50 ml @ 100 mls/hr IVPB Q24H [facility] Rx#:[id number] Oral 1680 300 Output: Urine 800 600 Other: Voiding Method Urinal Urinal Urinal Self-Catheterization Self-Catheterization Self-Catheterization # Voids 2 1 - Labs CBC & Chem 7: 06/29/20 05:43 06/30/20 07:08 Labs: Abnormal Lab Results - Last 24 Hours (Table) 06/29/20 06/29/20 06/29/20 Range/Units 11:58 17:02 20:49 Chloride (98-107) mmol/L BUN (9-20) mg/dL Creatinine (0.66-1.25) mg/dL Glucose (74-99) mg/dL POC Glucose (mg/dL) 132 H 154 H 202 H (75-99) mg/dL 06/30/20 06/30/20 Range/Units 06:17 07:08 Chloride 109 H (98-107) mmol/L BUN 41 H (9-20) mg/dL Creatinine 2.92 H (0.66-1.25) mg/dL Glucose 140 H (74-99) mg/dL POC Glucose (mg/dL) 131 H (75-99) mg/dL Microbiology - Last 24 Hours (Table) 06/28/20 15:29 Blood Culture - Preliminary Blood No Growth after 24 hours
--- NOTE | 2020-06-30 10:37 | US ---
Discontinued liver abscess drainage HISTORY: Abnormal CT, sepsis Real-time ultrasound performed for evaluation of procedure approach. A suitable percutaneous access was not identified on real-time scanning. IMPRESSION: Percutaneous access was not deemed feasible. No percutaneous drainage performed.
--- NOTE | 2020-06-30 12:12 | P.PN ---
Subjective Patient is seen in follow for acute kidney injury on chronic kidney disease. Patient has chronic kidney disease stage III with baseline creatinine in the range of 1.5-2. Good urine output. He is performing self catheterizations. No vomiting or diarrhea. Oral intake is good. No active complaints at this time. Vital signs are stable. General: The patient appeared well nourished and normally developed. HEENT: Head exam is unremarkable. Neck is without jugular venous distension. LUNGS: Lungs are clear to auscultation and percussion. Breath sounds decreased. HEART: Rate and Rhythm are regular. ABDOMEN: Soft, nontender. EXTREMITITES: Trace edema. Objective - Vital Signs Vital signs: Vital Signs Temp 97.6 F 06/30/20 11:00 Pulse 83 06/30/20 11:00 Resp 16 06/30/20 11:00 BP 108/75 06/30/20 11:00 Pulse Ox 97 06/30/20 11:00 Intake & Output 06/29/20 06/30/20 06/30/20 18:59 06:59 18:59 Intake Total 1710 100 320 Output Total 800 600 Balance 910 100 -280 Weight 130.7 kg Intake: IV 30 20 Invasive Line 1 30 20 Intake, IV Titration 100 Amount cefTRIAXone 2 gm In 100 Sodium Chloride 0.9% 50 ml @ 100 mls/hr IVPB Q24H [facility] Rx#:[id number] Oral 1680 300 Output: Urine 800 600 Other: Voiding Method Urinal Urinal Urinal Self-Catheterization Self-Catheterization Self-Catheterization # Voids 2 1 - Labs CBC & Chem 7: 06/29/20 05:43 06/30/20 07:08 Labs: Abnormal Lab Results - Last 24 Hours (Table) 06/29/20 06/29/20 06/30/20 Range/Units 17:02 20:49 06:17 Chloride (98-107) mmol/L BUN (9-20) mg/dL Creatinine (0.66-1.25) mg/dL Glucose (74-99) mg/dL POC Glucose (mg/dL) 154 H 202 H 131 H (75-99) mg/dL 06/30/20 Range/Units 07:08 Chloride 109 H (98-107) mmol/L BUN 41 H (9-20) mg/dL Creatinine 2.92 H (0.66-1.25) mg/dL Glucose 140 H (74-99) mg/dL POC Glucose (mg/dL) (75-99) mg/dL Microbiology - Last 24 Hours (Table) 06/28/20 15:29 Blood Culture - Preliminary Blood No Growth after 24 hours Assessment and Plan Plan: Assessment: 1. Acute kidney injury secondary to ATN secondary to severe sepsis. Renal function improving. Creatinine 2.9 to today. 2. Chronic kidney disease stage III with baseline creatinine the range of 1.5-2 secondary to chronic obstructive uropathy/urinary retention and diabetic kidney disease. 3. BPH status post TURP on June 10. Patient performs self catheterizations. 4. Severe sepsis secondary to E. coli UTI and bacteremia. Maintained on IV antibiotics. 5. Hypervolemic hyponatremia. Better. 6. Lower extremity edema. 7. Metabolic acidosis secondary to acute kidney injury and IV fluids. Maintained on oral sodium bicarbonate. 8. Diabetes mellitus. 9. Acute on chronic systolic CHF with ejection fraction of 35-40%. Plan: Status post IV Lasix yesterday. Continue to monitor renal function and urine output.
--- NOTE | 2020-06-30 12:15 | PN ---
PROGRESS NOTE Mr. Grissom is a 65-year-old male who presented with evidence of year old sepsis. He was found to have a liver mass that could be an abscess. He was evaluated to undergo percutaneous drainage but that was not feasible. He is feeling better overall today. His breathing is better. He denies any chest pain. He denies any dizziness. He denies any palpitations. He has a prior history of coronary artery disease with stenting of the diagonal branch. History of chronic kidney disease. Diabetes. His energy is better overall. He continues to be on aspirin once a day, Lipitor 80 mg daily, tamsulosin. He received 1 dose of IV Lasix yesterday. PHYSICAL EXAMINATION: His blood pressure 107/60 with a heart rate in the 80s. LUNGS: No wheezes. HEART: Regular rate and rhythm, S1, S2. No S3 with no rub, with a systolic murmur. ABDOMEN: Soft, obese. nontender. extremities +1 edema. LAB DATA: BUN creatinine 41 and 2.92, which is improved compared to yesterday. His potassium 4.9. IMPRESSION: 1. Evidence of sepsis with E coli. 2. Liver mass, probable abscess. 3. Chronic kidney disease. 4. Coronary artery disease stable. 5. Obesity. 6. Diabetes. 7. Hypertension. RECOMMENDATION: From the cardiac standpoint, will continue present therapy. The issue of his abnormal CT scan and ultrasound of the abdomen is being addressed by Dr. Rousseau and the surgeon. Will follow his renal function and depending on his progress, further recommendation will be made. MMODL / IJN: [id number] /
[2020-06-30 12:33] LABS: Glucose,Whole Blood 129 mg/dL (75-99)
--- NOTE | 2020-06-30 12:53 | P.PCN ---
Date of Procedure: 06/30/20 Preoperative Diagnosis: liver abscess Procedure(s) Performed: u/s guide drain aborted percutaneous access limited on u/s by gas and patient body habitus. Could attempt under CT , however there is risk of transpleural drain placement, tract seeding.
--- NOTE | 2020-06-30 15:30 | PN ---
PROGRESS NOTE DATE OF SERVICE: 06/30/2020 REASON FOR FOLLOWUP: E coli UTI and bacteremia. INTERVAL HISTORY: The patient is currently afebrile. The patient is breathing comfortably. The patient denies having any chest pain or shortness of breath or cough. No nausea, no vomiting. No abdominal pain or diarrhea. PHYSICAL EXAMINATION: Blood pressure 108/75 with a pulse of 83, temperature of 97.6. He is 97% on room air. General description is a middle-aged male up in the chair in no distress. RESPIRATORY SYSTEM: Unlabored breathing. Clear to auscultation anteriorly. HEART: S1, S2. Regular rate and rhythm. ABDOMEN: Soft. No tenderness. EXTREMITIES: No edema of the feet. LABS: BUN of 41. Creatinine is 2.92. Blood culture repeat has been negative. DIAGNOSTIC IMPRESSION AND PLAN: 1. Patient with an Escherichia coli bacteremia. Source is likely urine, for which the patient is currently covered with Rocephin. Finish therapy with oral Cipro. 2. Patient with abnormality seen on the liver which could not be drained with CT guidance. Clinically not behaving as a liver abscess, as the patient has no symptoms referable to right upper quadrant. Can be monitored closely in outpatient setting with a repeat ultrasound in a month to 6 weeks. Questions and concerns were answered. MMODL / IJN: [id number] /
--- NOTE | 2020-06-30 15:30 | P.PN ---
Subjective Progress Note Date: 06/30/20 Principal diagnosis: gram-negative sepsis This is a 65-year-old white male with history of diabetes, hypertension, prostate disorder, obstructive sleep apnea syndrome maintained on CPAP/BiPAP. Patient was evaluated in 2016 by urology for elevated creatinine and bilateral hydronephrosis. Catheter drainage done and the patient developed significant improvement in his renal profile with creatinine down to 1.55. Patient continues to have difficulty voiding, and this was managed with an indwelling catheter initially, then he was switched later on to intermittent catheterizat ion in 2017. Patient was treated with a combination of finasteride and tamsulosin but he continued to have persistently elevated postvoid residual. Considering the persistent urinary retention, patient underwent TURP . Postoperatively, the patient developed what seemed to be hypoxic and hypercapnic respiratory failure with pulmonary edema. Patient was extubated reintubated postoperatively then every extubated and placed Echocardiogram in 2017 showed good LV function with ejection fraction of 55%. And there was no evidence of pulmonary hypertension. In 2015, patient had stenting of the second diagonal branch of the LAD done by Dr. Espinoza. The patient was discharged home. The patient continued to undergo self-catheterization. He came into the hospital again not feeling well. He was having some increased shortness of breath. He was having no dizziness or lightheadedness or heart fluttering. No chest pain. In the ED, the patient had a d-dimer that was abnormal. He was given a VQ scan did came back of a low probability for pulmonary embolism. Chest exit showed no acute abnormalities. His creatinine came back elevated. His UA was abnormal and the gram negative bacillus was also cultured in his blood. He was started on IV Rocephin. The blood pressure is marginally low at this point in time. His creatinine is up to 3.88. EKG showing a normal sinus mechanism. His white cell count is at 14.8. Sodium is at 128. The CAT scan of the abdomen and pelvis was done and showed a large low-density mass in the superior right lobe of the liver suspicious for an underlying abscess formation in the liver. There is also bilateral perinephric edema, nonobstructive right renal calculus, marginal right periurethral erythema and there is also deformity of the urinary bladder as well as air bubbles intramural air. Bilateral pyelonephritis was also considered. The patient is seen today 07/08/2020 in follow-up on the selective care unit. He is currently sitting up in a chair at the bedside. Awake and alert in no acute distress. Maintaining good O2 saturations in the 90s on room air. He's been afebrile. Hemodynamically stable. Blood cultures positive for E. coli. Urine culture positive for E. coli. White count 11.0. Hemoglobin 12.7. Sodium 133. Potassium 4.6. Creatinine 3.79. He is currently on ceftriaxone. On 06/29/2020 patient seen in follow-up on selective care unit, he is awake and alert, in no acute distress, he is currently sitting up in the recliner, he remains on IV Rocephin for E. coli bacteremia, with a blood cultures positive for E. coli and urine culture positive for E. coli, he currently denies any acute distress, no abdominal pain, no nausea or vomiting, his abdominal ultrasound showed complex cystic mass in the right hepatic dome posterior segment, with the suggestion of multi-locular abscess, or cystic neoplasm. his labs have been reviewed, white blood cell count is 7.2, hemoglobin is 12.1, sodium is 136, potassium is 4.7, chloride is 109, CO2 is 21, BUN is 43, creatinine is 3.23.surgical services were asked to see the patient in consultation and currently MRI without contrast is pending for evaluation of a liver abscess. Patient denies any shortness of breath, his vital signs have been stable, patient is afebrile On 06/30/2020 patient seen in follow-up on [facility] care unit, yesterday we asked interventional radiology for percutaneous drainage of the liver abscess however it was not feasible related to limited access by gas and patient's body habitus. Patient denies any acute abdominal pain, he sitting up in the recliner, seems to be comfortable, his respirations are nonlabored, lung sounds are clear, room air pulse ox 97%, he is afebrile, today's labs have been reviewed, BNP was done, normal CBC, renal profile is improving, had no nausea or vomiting. No fever or chills, he is on Rocephin, for E. coli bacteremia and E. coli urinary tract infection. ID service is following, surgical services are following. Objective - Vital Signs Vital signs: Vital Signs Temp 97.6 F 06/30/20 11:00 Pulse 83 06/30/20 11:00 Resp 16 06/30/20 11:00 BP 108/75 06/30/20 11:00 Pulse Ox 97 06/30/20 11:00 Intake & Output 06/29/20 06/30/20 06/30/20 18:59 06:59 18:59 Intake Total 1710 100 440 Output Total 800 600 Balance 910 100 -160 Weight 130.7 kg Intake: IV 30 20 Invasive Line 1 30 20 Intake, IV Titration 100 Amount cefTRIAXone 2 gm In 100 Sodium Chloride 0.9% 50 ml @ 100 mls/hr IVPB Q24H [facility] Rx#:[id number] Oral [id number] 420 Output: Urine 800 600 Other: Voiding Method Urinal Urinal Urinal Self-Catheterization Self-Catheterization Self-Catheterization # Voids 2 1 - Exam GENERAL EXAM: Alert, very pleasant, 65-year-old white male on room air, with a pulse ox of 97%comfortable in no apparent distress. HEAD: Normocephalic/atraumatic. EYES: Normal reaction of pupils, equal size. Conjunctiva pink, sclera white. NOSE: Clear with pink turbinates. THROAT: No erythema or exudates. NECK: No masses, no JVD, no thyroid enlargement, no adenopathy. CHEST: No chest wall deformity. Symmetrical expansion. LUNGS: Equal air entry with no crackles, wheeze, rhonchi or dullness. CVS: Regular rate and rhythm, normal S1 and S2, no gallops, no murmurs, no rubs ABDOMEN: Soft, nontender. No hepatosplenomegaly, normal bowel sounds, no guarding or rigidity. EXTREMITIES: No clubbing, no edema, no cyanosis, 2+ pulses and upper and lower extremities. MUSCULOSKELETAL: Muscle strength and tone normal. SPINE: No scoliosis or deformity SKIN: No rashes CENTRAL NERVOUS SYSTEM: Alert and oriented -3. No focal deficits, tone is normal in all 4 extremities. PSYCHIATRIC: Alert and oriented -3. Appropriate affect. Intact judgment and insight. - Labs CBC & Chem 7: 06/29/20 05:43 06/30/20 07:08 Labs: Abnormal Lab Results - Last 24 Hours (Table) 06/29/20 06/29/20 06/30/20 Range/Units 17:02 20:49 06:17 Chloride (98-107) mmol/L BUN (9-20) mg/dL Creatinine (0.66-1.25) mg/dL Glucose (74-99) mg/dL POC Glucose (mg/dL) 154 H 202 H 131 H (75-99) mg/dL 06/30/20 06/30/20 Range/Units 07:08 12:16 Chloride 109 H (98-107) mmol/L BUN 41 H (9-20) mg/dL Creatinine 2.92 H (0.66-1.25) mg/dL Glucose 140 H (74-99) mg/dL POC Glucose (mg/dL) 129 H (75-99) mg/dL Microbiology - Last 24 Hours (Table) 06/28/20 15:29 Blood Culture - Preliminary Blood No Growth after 24 hours Assessment and Plan Plan: 1 sepsis secondary to E. coli. This is likely of a urinary source. Consider underlying pyelonephritis especially with the above-mentioned CAT scan images. Also, there is a concern of a liver abscess . The patient is hemodynamically stable. The patient is is afebrile. The patient has some mild leukocytosis. The patient on IV Rocephin. 2 liver mass/abscess, please refer to the CAT scan findings of the abdomen, and CT-guided percutaneous drainage was not visible 3 acute on chronic kidney injury, improving 4 chronic urinary retention secondary to BPH post TURP, the patient is still undergoing self-catheterization 5 chronic diastolic heart failure currently inactive in stable 6 morbid obesity with a BMI of 42.8 7 coronary artery disease with previous stent placement in 2016 8 obstructive sleep apnea 9 diabetes mellitus 10 hypertension 11 non-anion gap metabolic acidosis with a bicarb level of 17. The sodium level is at 128 12 mild leukocytosis 13 fever Plan: Continue current antibiotics, no fever or chills, clinically patient is doing we ll, no worsening dyspnea, no altered mentation, his CT guided percutaneous drainage of the liver abscess was not feasible. He supposed to undergo MRI of the liver, however he is not sure if he can fit into the MRI. We will continue to follow patient's clinical course. I performed a history & physical examination of the patient and discussed their management with my nurse practitioner, Judy Morse. I reviewed the nurse practitioner's note and agree with the documented findings and plan of care. Lung sounds are positive for diminished breath sounds The findings and the impression was discussed with the patient. I attest to the documentation by the nurse practitioner. Time with Patient: Less than 30
[2020-06-30 16:56] LABS: Glucose,Whole Blood 229 mg/dL (75-99)
[2020-06-30] MEDS: ATORVASTATIN 80 MG TAB PO SCH (20:01)
[2020-06-30 20:07] LABS: Glucose,Whole Blood 179 mg/dL (75-99)
--- NOTE | 2020-06-30 23:00 | P.PN ---
Subjective Progress Note Date: 06/30/20 Principal diagnosis: Dyspnea Mr. Grissom is a 65-year-old male with history of hypertension, diabetes, prostate disorder, obstructive sleep apnea on CPAP, presenting with a chief complaint of difficulty in breathing. Patient recently had TURP by Dr. Jimenez, couple of weeks back and postoperatively the patient had respiratory failure was mechanically ventilated overnight and discharged the next day after improving. After going home patient felt better but subsequently developed increased difficulty in breathing and at the time of admission was found to have possible UTI and early sepsis so admitted for further management. On 06/27/2020 -Today the patient is lying in bed appears to be in no acute distress. Patient complains of generalized weakness. He also has difficulty in breathing with activity but better than when he came in. Denies having any chest pain or palpitations. Patient denies having any dysuria or hematuria. No abdominal pain nausea vomiting or diarrhea. On reviewing the labs patient's white count is 14.8, hemoglobin 12.7, sodium 128, potassium 4.6, chloride 99, bicarb 17, BUN 45, creatinine 3.88. On 06/28/2020- no acute events reported by nursing staff overnight. patient is lying in bed appears to be no acute distress. His is at the bedside. Patient states that his generalized weakness has improved and that his breathing has improved as well. Patient denies having any chest pain or palpitations. No lower extremity swelling. Patient's vitals are been stable OVERNIGHT, T-max 98.4, heart rate 95, blood pressure 109/66, saturating at 96% on room air. Patient's urine and blood culture positive for gram-negative bacilli, E. coli respectively. Patient's white count has been trending down from 17-14-11 today. Creatinine at 3.79 today. On 06/29/20 - Patient had no complaints overnight. She had an ultrasound of the abdomen done yesterday showing complex cystic mass in the right hepatic dome posterior segment redemonstrated. On review of systems-patient denied having any fevers chills or rigors. No cough or difficulty breathing. No chest pain or palpitations. No abdominal pain nausea vomiting or diarrhea. No dysuria or hematuria. Patient's vitals within normal limits. Labs reviewed showing creatinine trending down to 3.23. On 06/30/2020-yesterday interventional radiology was consulted for CT-guided biopsy of the liver abscess. They suggested him to get an MRI, but he could not fit in the MRI machine. So they try to attempt ultrasound-guided biopsy but the procedure was aborted due to patient's acute body habitus. Today the patient is sitting up in a chair by the bedside appears to be in no acute distress. He denies having any abdominal pain nausea vomiting or diarrhea. Patient states that his difficulty in breathing is better. On reviewing the vitals patient has been afebrile over the past 24 hours, blood pressure 123/74, saturating at 98% on room air. On reviewing the patient's labs his sodium is 141, potassium 4.9 creatinine has trended down from 3.23 to 2.92. Active Medications Hydrocodone Bitart/Acetaminophen ([place] 5-325) 1 each PO Q6HR PRN PRN Reason: Pain Aspirin (Aspirin) 81 mg PO DAILY [facility] Last Admin: 06/30/20 09:18 Dose: 81 mg Documented by: Atorvastatin Calcium (Lipitor) 80 mg PO HS [facility] Last Admin: 06/29/20 21:19 Dose: 80 mg Documented by: Diazepam (Valium) 5 mg PO BID PRN PRN Reason: Motion Sickness Ergocalciferol (Vitamin D2) 50,000 unit PO Q30D [facility] Finasteride (Proscar) 5 mg PO DAILY [facility] Last Admin: 06/30/20 09:18 Dose: 5 mg Documented by: Heparin Sodium (Porcine) (Heparin) 5,000 unit SQ Q12HR [facility] Last Admin: 06/30/20 09:18 Dose: 5,000 unit Documented by: Hydromorphone HCl (Dilaudid) 0.5 mg IVP Q3HR PRN PRN Reason: Severe Pain Ceftriaxone Sodium 2 gm/ (Sodium Chloride) 50 mls @ 100 mls/hr IVPB Q24H [facility] Last Admin: 06/29/20 21:20 Dose: 100 mls/hr Documented by: Insulin Aspart (Novolog) 0 unit SQ ACHS [facility]; Protocol Last Admin: 06/30/20 12:38 Dose: Not Given Documented by: Naloxone HCl (Narcan) 0.2 mg IV Q2M PRN PRN Reason: Opioid Reversal Nitroglycerin (Nitrostat) 0.4 mg SUBLINGUAL Q5M PRN PRN Reason: Chest Pain Pantoprazole Sodium (Protonix) 40 mg PO AC-BID [facility] Last Admin: 06/30/20 06:50 Dose: 40 mg Documented by: Pioglitazone HCl (Actos) 30 mg PO DAILY [facility] Last Admin: 06/30/20 09:18 Dose: 30 mg Documented by: Sodium Bicarbonate (Sodium Bicarbonate Tab) 650 mg PO TID [facility] Last Admin: 06/30/20 09:18 Dose: 650 mg Documented by: Tamsulosin HCl (Flomax) 0.4 mg PO BID [facility] Last Admin: 06/30/20 09:18 Dose: 0.4 mg Documented by: Temazepam (Restoril) 15 mg PO HS PRN PRN Reason: Insomnia Objective - Vital Signs Vital signs: Vital Signs Temp 97.6 F 06/30/20 11:00 Pulse 83 06/30/20 11:00 Resp 16 06/30/20 11:00 BP 108/75 06/30/20 11:00 Pulse Ox 97 06/30/20 11:00 Intake & Output 06/29/20 06/30/20 06/30/20 18:59 06:59 18:59 Intake Total 1710 100 440 Output Total 800 600 Balance 910 100 -160 Weight 130.7 kg Intake: IV 30 20 Invasive Line 1 30 20 Intake, IV Titration 100 Amount cefTRIAXone 2 gm In 100 Sodium Chloride 0.9% 50 ml @ 100 mls/hr IVPB Q24H [facility] Rx#:[id number] Oral [id number] Output: Urine 800 600 Other: Voiding Method Urinal Urinal Urinal Self-Catheterization Self-Catheterization Self-Catheterization # Voids 2 1 - Exam PHYSICAL EXAM Gen: lying in bed, well-developed, well-nourished. Morbidly obese. HEENT: Head is atraumatic, normocephalic. Pupils equal, round. Sclerae is anicteric. NECK: Supple. No JVD. No lymphadenopathy. No thyromegaly. LUNGS: Breath sounds diminished at the bases with a few scattered rhonchi noted. HEART: Regular rate and rhythm. No murmur. ABDOMEN: Soft. Obese. Bowel sounds are present. No masses. No tenderness. EXTREMITIES: No calf tenderness. no lower extremity edema NEUROLOGICAL: Patient is awake, alert and oriented x3. No focal deficits - Labs CBC & Chem 7: 06/29/20 05:43 06/30/20 07:08 Labs: Abnormal Lab Results - Last 24 Hours (Table) 06/29/20 06/29/20 06/30/20 Range/Units 17:02 20:49 06:17 Chloride (98-107) mmol/L BUN (9-20) mg/dL Creatinine (0.66-1.25) mg/dL Glucose (74-99) mg/dL POC Glucose (mg/dL) 154 H 202 H 131 H (75-99) mg/dL 06/30/20 06/30/20 Range/Units 07:08 12:16 Chloride 109 H (98-107) mmol/L BUN 41 H (9-20) mg/dL Creatinine 2.92 H (0.66-1.25) mg/dL Glucose 140 H (74-99) mg/dL POC Glucose (mg/dL) 129 H (75-99) mg/dL Microbiology - Last 24 Hours (Table) 06/28/20 15:29 Blood Culture - Preliminary Blood No Growth after 24 hours Assessment and Plan Assessment: ASSESSMENT Sepsis secondary to UTI due to E. coli Acute kidney injury-possibly secondary to above Systoilc CHF EF 35-40 % not in exacerbation Chronic kidney disease stage III History of recent TURP procedure Hyponatremia Mildly elevated troponins Hypertension Hyperlipidemia Type 2 diabetes mellitus Obstructive sleep apnea Coronary artery disease status post stenting Nicotine dependence remote history Obesity with BMI 42.8 PLAN: Patient had VQ scan that was showing low probability for PE, C. difficile has been negative. Electrolytes normalized. Patient is currently on ceftriaxone for his positive blood and urine with E.coli. Repeat blood cultures obtained from yesterday pending . Echocardiogram showing left ventricular systolic function moderately impaired with EF 35 to 40%. There is also diastolic filling abnormality. Moderate global hypokinesis of left ventricle . Continue with the current medication regimen. Interventional radiology is consulted for CT-guided drainage of the hepatic abscess but could not do it due to pt's body habitus and the area to be accessed. The treatment plan was discussed with the patient and his at bedside in detail today. Further recommendations to follow depending on the progress of the patient. Overall prognosis is guarded due to chronic medical conditions.
[2020-07-01 06:15] LABS: Glucose,Whole Blood 130 mg/dL (75-99)
[2020-07-01] MEDS: INSULIN ASPART (NovoLOG) 100 UNIT/ML VIAL SQ SCH ×2 (06:28→12:08)
[2020-07-01] MEDS: PANTOPRAZOLE 40 MG TABLET PO SCH (06:28)
[2020-07-01 07:25] LABS: Calcium 9.1 mg/dL (8.4-10.2); Magnesium 2.3 mg/dL (1.6-2.3); Potassium 5.3 mmol/L (3.5-5.1)
[2020-07-01] MEDS: FINASTERIDE 5 MG TAB PO SCH (08:34)
[2020-07-01] MEDS: HEPARIN SODIUM,PORCINE 5,000 UNIT/ML 1 ML VIAL SQ SCH (08:34)
[2020-07-01] MEDS: TAMSULOSIN 0.4 MG CAP.ER.24H PO SCH (08:34)
[2020-07-01] MEDS: PIOGLITAZONE 30 MG TAB PO SCH (08:34)
[2020-07-01] MEDS: SODIUM BICARBONATE TAB 650 MG TAB PO SCH (08:34)
[2020-07-01] MEDS: ASPIRIN 81 MG PO SCH (08:34)
[2020-07-01 08:47] VITALS: PULSE 86; RESP 18
--- NOTE | 2020-07-01 11:29 | P.PN ---
Subjective Patient is seen in follow for acute kidney injury on chronic kidney disease. Patient has chronic kidney disease stage III with baseline creatinine in the range of 1.5-2. Good urine output. He is performing self catheterizations. No vomiting or diarrhea. Oral intake is good. No active complaints at this time. Renal function continues to improve. Vital signs are stable. General: The patient appeared well nourished and normally developed. HEENT: Head exam is unremarkable. Neck is without jugular venous distension. LUNGS: Lungs are clear to auscultation and percussion. Breath sounds decreased. HEART: Rate and Rhythm are regular. ABDOMEN: Soft, nontender. EXTREMITITES: Trace edema. Objective - Vital Signs Vital signs: Vital Signs Temp 97.9 F 07/01/20 08:00 Pulse 86 07/01/20 08:00 Resp 18 07/01/20 08:00 BP 99/60 07/01/20 08:00 Pulse Ox 99 07/01/20 08:00 Intake & Output 06/30/20 07/01/20 07/01/20 18:59 06:59 18:59 Intake Total 2246 590 0 Output Total 600 300 Balance 1646 290 0 Weight 130.9 kg Intake: IV 30 10 Invasive Line 1 30 10 Intake, IV Titration 100 Amount cefTRIAXone 2 gm In 100 Sodium Chloride 0.9% 50 ml @ 100 mls/hr IVPB Q24H [facility] Rx#:[id number] Oral [id number] 0 Output: Urine 600 300 Other: Voiding Method Urinal Urinal Urinal Self-Catheterization Self-Catheterization Self-Catheterization # Voids 500 - Labs CBC & Chem 7: 06/29/20 05:43 07/01/20 06:36 Labs: Abnormal Lab Results - Last 24 Hours (Table) 06/30/20 06/30/20 06/30/20 Range/Units 12:16 16:37 20:05 Potassium (3.5-5.1) mmol/L Chloride (98-107) mmol/L BUN (9-20) mg/dL Creatinine (0.66-1.25) mg/dL Glucose (74-99) mg/dL POC Glucose (mg/dL) 129 H 229 H 179 H (75-99) mg/dL 07/01/20 07/01/20 Range/Units 06:13 06:36 Potassium 5.3 H (3.5-5.1) mmol/L Chloride 111 H (98-107) mmol/L BUN 40 H (9-20) mg/dL Creatinine 2.59 H (0.66-1.25) mg/dL Glucose 149 H (74-99) mg/dL POC Glucose (mg/dL) 130 H (75-99) mg/dL Microbiology - Last 24 Hours (Table) 06/28/20 15:29 Blood Culture - Preliminary Blood No Growth after 48 hours Assessment and Plan Plan: Assessment: 1. Acute kidney injury secondary to ATN secondary to severe sepsis. Renal function improving. Creatinine 2.59 today. 2. Chronic kidney disease stage III with baseline creatinine the range of 1.5-2 secondary to chronic obstructive uropathy/urinary retention and diabetic kidney disease. 3. BPH status post TURP on June 10. Patient performs self catheterizations. 4. Severe sepsis secondary to E. coli UTI and bacteremia. Maintained on IV ant ibiotics. 5. Hypervolemic hyponatremia. Resolved. 6. Lower extremity edema. Improved. 7. Metabolic acidosis secondary to acute kidney injury and IV fluids. Maintained on oral sodium bicarbonate. 8. Diabetes mellitus. 9. Acute on chronic systolic CHF with ejection fraction of 35-40%. Plan: Continue to monitor renal function and urine output. Remains off IV fluids. Maintain oral sodium bicarbonate.
--- NOTE | 2020-07-01 11:33 | P.PN ---
Subjective Progress Note Date: 07/01/20 The pleasant 65-year-old gentleman who previously followed with Dr. VC Aquino in the office with a history of CAD with prior stenting of the diagonal branch, chronic kidney disease, diabetes, hypertension, hyperlipidemia. He recently underwent TURP which was complicated by rest for a failure and required mechanical ventilation for a few days. He was subsequently discharged home in stable condition. He presented back to the hospital this time for not feeling well. He was short of breath and feeling weak and tired as well as fatigue. He was diagnosed with UTI and acute kidney injury with a creatinine of 3.88. GFR 15. We're consulted to see the patient due to mildly abnormal troponins. Patient had no complaints of chest discomfort and EKG shows sinus rhythm without any significant ST or T-wave abnormalities. Renal function continues to be abnormal with a BUN of 43 and creatinine 3.23 which is elevated compared to his baseline. He has been advised at this time medical therapy. Echocardiogram Doppler done 2 days ago showed moderate global hypokinesis of the LV, moderately impaired LV systolic function with an ejection fraction between 35-40%, mild TR. 07/01/2020 The patient was seen and examined today sitting up in a chair. His overall feeling well. The plan for the possible abscess on the liver is 4 antibiotics and follow-up ultrasounds. Renal function has improved somewhat with a BUN of 40 and creatinine 2.59. Potassium is 5.3 today. Blood pressure is ranging from 90s to 120s systolic. He feels his breathing is stable. Continues to have lower extremity edema but this is stable. He's had no complaints of chest discomfort. Objective - Vital Signs Vital signs: Vital Signs Temp 97.9 F 07/01/20 08:00 Pulse 86 07/01/20 08:00 Resp 18 07/01/20 08:00 BP 99/60 07/01/20 08:00 Pulse Ox 99 07/01/20 08:00 Intake & Output 06/30/20 07/01/20 07/01/20 18:59 06:59 18:59 Intake Total 2246 590 0 Output Total 600 300 Balance 1646 290 0 Weight 130.9 kg Intake: IV 30 10 Invasive Line 1 30 10 Intake, IV Titration 100 Amount cefTRIAXone 2 gm In 100 Sodium Chloride 0.9% 50 ml @ 100 mls/hr IVPB Q24H [facility] Rx#:[id number] Oral 2216 480 0 Output: Urine 600 300 Other: Voiding Method Urinal Urinal Urinal Self-Catheterization Self-Catheterization Self-Catheterization # Voids 500 - Exam PHYSICAL EXAMINATION: HEENT: Head is atraumatic, normocephalic. Pupils equal, round. Neck is supple. There is no elevated jugular venous pressure. HEART EXAMINATION: Heart sounds regular, S1 and S2 normal. No murmur or gallop heard. CHEST EXAMINATION: Lungs are clear to auscultation. No chest wall tenderness is noted on palpation or with deep breathing. ABDOMEN: Soft, nontender. Bowel sounds are heard. No organomegaly noted. EXTREMITIES: 2+ peripheral pulses with evidence of mild peripheral edema and no calf tenderness noted. NEUROLOGIC patient is awake, alert and oriented x3. . - Labs CBC & Chem 7: 06/29/20 05:43 07/01/20 06:36 Labs: Abnormal Lab Results - Last 24 Hours (Table) 06/30/20 06/30/20 06/30/20 Range/Units 12:16 16:37 20:05 Potassium (3.5-5.1) mmol/L Chloride (98-107) mmol/L BUN (9-20) mg/dL Creatinine (0.66-1.25) mg/dL Glucose (74-99) mg/dL POC Glucose (mg/dL) 129 H 229 H 179 H (75-99) mg/dL 07/01/20 07/01/20 Range/Units 06:13 06:36 Potassium 5.3 H (3.5-5.1) mmol/L Chloride 111 H (98-107) mmol/L BUN 40 H (9-20) mg/dL Creatinine 2.59 H (0.66-1.25) mg/dL Glucose 149 H (74-99) mg/dL POC Glucose (mg/dL) 130 H (75-99) mg/dL Microbiology - Last 24 Hours (Table) 06/28/20 15:29 Blood Culture - Preliminary Blood No Growth after 48 hours Assessment and Plan Assessment: #1 urosepsis #2 acute on chronic renal failure #3 elevated troponin #4 CAD #5 cardiomyopathy of unclear etiology #6 status post TURP Plan: From cardiology's perspective, due to acute on chronic kidney failure we will continue to treat the patient medically. From our standpoint the patient may be discharged home. He will follow-up in the office with Dr. Alvarez. RIVET PASSER note has been reviewed, I agree with a documented findings and plan of care. Patient was seen and examined.
[2020-07-01 12:03] LABS: Glucose,Whole Blood 132 mg/dL (75-99)
--- NOTE | 2020-07-01 12:51 | P.PN ---
Subjective Progress Note Date: 07/01/20 Principal diagnosis: gram-negative sepsis This is a 65-year-old white male with history of diabetes, hypertension, prostate disorder, obstructive sleep apnea syndrome maintained on CPAP/BiPAP. Patient was evaluated in 2016 by urology for elevated creatinine and bilateral hydronephrosis. Catheter drainage done and the patient developed significant improvement in his renal profile with creatinine down to 1.55. Patient continues to have difficulty voiding, and this was managed with an indwelling catheter initially, then he was switched later on to intermittent catheterizat ion in 2017. Patient was treated with a combination of finasteride and tamsulosin but he continued to have persistently elevated postvoid residual. Considering the persistent urinary retention, patient underwent TURP . Postoperatively, the patient developed what seemed to be hypoxic and hypercapnic respiratory failure with pulmonary edema. Patient was extubated reintubated postoperatively then every extubated and placed Echocardiogram in 2017 showed good LV function with ejection fraction of 55%. And there was no evidence of pulmonary hypertension. In 2015, patient had stenting of the second diagonal branch of the LAD done by Dr. Espinoza. The patient was discharged home. The patient continued to undergo self-catheterization. He came into the hospital again not feeling well. He was having some increased shortness of breath. He was having no dizziness or lightheadedness or heart fluttering. No chest pain. In the ED, the patient had a d-dimer that was abnormal. He was given a VQ scan did came back of a low probability for pulmonary embolism. Chest exit showed no acute abnormalities. His creatinine came back elevated. His UA was abnormal and the gram negative bacillus was also cultured in his blood. He was started on IV Rocephin. The blood pressure is marginally low at this point in time. His creatinine is up to 3.88. EKG showing a normal sinus mechanism. His white cell count is at 14.8. Sodium is at 128. The CAT scan of the abdomen and pelvis was done and showed a large low-density mass in the superior right lobe of the liver suspicious for an underlying abscess formation in the liver. There is also bilateral perinephric edema, nonobstructive right renal calculus, marginal right periurethral erythema and there is also deformity of the urinary bladder as well as air bubbles intramural air. Bilateral pyelonephritis was also considered. The patient is seen today 07/08/2020 in follow-up on the selective care unit. He is currently sitting up in a chair at the bedside. Awake and alert in no acute distress. Maintaining good O2 saturations in the 90s on room air. He's been afebrile. Hemodynamically stable. Blood cultures positive for E. coli. Urine culture positive for E. coli. White count 11.0. Hemoglobin 12.7. Sodium 133. Potassium 4.6. Creatinine 3.79. He is currently on ceftriaxone. On 06/29/2020 patient seen in follow-up on selective care unit, he is awake and alert, in no acute distress, he is currently sitting up in the recliner, he remains on IV Rocephin for E. coli bacteremia, with a blood cultures positive for E. coli and urine culture positive for E. coli, he currently denies any acute distress, no abdominal pain, no nausea or vomiting, his abdominal ultrasound showed complex cystic mass in the right hepatic dome posterior segment, with the suggestion of multi-locular abscess, or cystic neoplasm. his labs have been reviewed, white blood cell count is 7.2, hemoglobin is 12.1, sodium is 136, potassium is 4.7, chloride is 109, CO2 is 21, BUN is 43, creatinine is 3.23.surgical services were asked to see the patient in consultation and currently MRI without contrast is pending for evaluation of a liver abscess. Patient denies any shortness of breath, his vital signs have been stable, patient is afebrile On 06/30/2020 patient seen in [facility], yesterday we asked interventional radiology for percutaneous drainage of the liver abscess however it was not feasible related to limited access by gas and patient's body habitus. Patient denies any acute abdominal pain, he sitting up in the recliner, seems to be comfortable, his respirations are nonlabored, lung sounds are clear, room air pulse ox 97%, he is afebrile, today's labs have been reviewed, BNP was done, normal CBC, renal profile is improving, had no nausea or vomiting. No fever or chills, he is on Rocephin, for E. coli bacteremia and E. coli urinary tract infection. ID service is following, surgical services are following. On 07/01/2020 patient seen in follow-up on selective care unit, he is calm and comfortable, he is on room air, he is ambulating about the room, appears to be in no acute distress, no pulmonary complaints, no shortness of breath, lung sounds are clear, remains on IV antibiotics in the form of Rocephin for E. coli bacteremia related to urinary tract infection with urine cultures positive for E. coli. Intervention radiology was unable to drain the liver abscess, clinically patient denies any abdominal pain, no nausea or vomiting, surgical services are following, he was unable to fit into the MRI. No surgery planned at this time, renal profile slightly improved, nephrology is following. No nausea vomiting or diarrhea. Objective - Vital Signs Vital signs: Vital Signs Temp 98.0 F 07/01/20 11:58 Pulse 86 07/01/20 11:58 Resp 18 07/01/20 11:58 BP 114/78 07/01/20 11:58 Pulse Ox 99 07/01/20 11:58 Intake & Output 06/30/20 07/01/20 07/01/20 18:59 06:59 18:59 Intake Total 2246 590 0 Output Total 600 300 Balance 1646 290 0 Weight 130.9 kg Intake: IV 30 10 Invasive Line 1 30 10 Intake, IV Titration 100 Amount cefTRIAXone 2 gm In 100 Sodium Chloride 0.9% 50 ml @ 100 mls/hr IVPB Q24H [facility] Rx#:[id number] Oral 2216 480 0 Output: Urine 600 300 Other: Voiding Method Urinal Urinal Urinal Self-Catheterization Self-Catheterization Self-Catheterization # Voids 500 - Exam GENERAL EXAM: Alert, very pleasant, 65-year-old white male on room air, with a pulse ox of 99% comfortable in no apparent distress. HEAD: Normocephalic/atraumatic. EYES: Normal reaction of pupils, equal size. Conjunctiva pink, sclera white. NOSE: Clear with pink turbinates. THROAT: No erythema or exudates. NECK: No masses, no JVD, no thyroid enlargement, no adenopathy. CHEST: No chest wall deformity. Symmetrical expansion. LUNGS: Equal air entry with no crackles, wheeze, rhonchi or dullness. CVS: Regular rate and rhythm, normal S1 and S2, no gallops, no murmurs, no rubs ABDOMEN: Soft, nontender. No hepatosplenomegaly, normal bowel sounds, no guarding or rigidity. EXTREMITIES: No clubbing, no edema, no cyanosis, 2+ pulses and upper and lower extremities. MUSCULOSKELETAL: Muscle strength and tone normal. SPINE: No scoliosis or deformity SKIN: No rashes CENTRAL NERVOUS SYSTEM: Alert and oriented -3. No focal deficits, tone is normal in all 4 extremities. PSYCHIATRIC: Alert and oriented -3. Appropriate affect. Intact judgment and insight. - Labs CBC & Chem 7: 06/29/20 05:43 07/01/20 06:36 Labs: Abnormal Lab Results - Last 24 Hours (Table) 06/30/20 06/30/20 07/01/20 Range/Units 16:37 20:05 06:13 Potassium (3.5-5.1) mmol/L Chloride (98-107) mmol/L BUN (9-20) mg/dL Creatinine (0.66-1.25) mg/dL Glucose (74-99) mg/dL POC Glucose (mg/dL) 229 H 179 H 130 H (75-99) mg/dL 07/01/20 07/01/20 Range/Units 06:36 11:48 Potassium 5.3 H (3.5-5.1) mmol/L Chloride 111 H (98-107) mmol/L BUN 40 H (9-20) mg/dL Creatinine 2.59 H (0.66-1.25) mg/dL Glucose 149 H (74-99) mg/dL POC Glucose (mg/dL) 132 H (75-99) mg/dL Microbiology - Last 24 Hours (Table) 06/28/20 15:29 Blood Culture - Preliminary Blood No Growth after 48 hours Assessment and Plan Plan: 1 sepsis secondary to E. coli. This is likely of a urinary source. Consider underlying pyelonephritis especially with the above-mentioned CAT scan images. Also, there is a concern of a liver abscess . The patient is hemodynamically stable. The patient is is afebrile. The patient has some mild leukocytosis. The patient on IV Rocephin. 2 liver mass/abscess, please refer to the CAT scan findings of the abdomen, and CT-guided percutaneous drainage was not feasible 3 acute on chronic kidney injury, improving 4 chronic urinary retention secondary to BPH post TURP, the patient is still undergoing self-catheterization 5 chronic diastolic heart failure currently inactive in stable 6 morbid obesity with a BMI of 42.8 7 coronary artery disease with previous stent placement in 2016 8 obstructive sleep apnea 9 diabetes mellitus 10 hypertension 11 non-anion gap metabolic acidosis with a bicarb level of 17. The sodium level is at 128 12 mild leukocytosis 13 fever Plan: Stable from pulmonary perspective, no fever or chills, remains on IV Rocephin fo r E. coli bacteremia related to urinary tract infection. No abdominal pain, no nausea or vomiting, renal profile improved, vital signs are stable, patient is on room air, no acute events overnight, anticipate discharge home possibly today. Clear for discharge from pulmonary perspective. I performed a history & physical examination of the patient and discussed their management with my nurse practitioner, Judy Morse. I reviewed the nurse practitioner's note and agree with the documented findings and plan of care. Lung sounds are positive for diminished breath sounds The findings and the impression was discussed with the patient. I attest to the documentation by the nurse practitioner. Time with Patient: Less than 30
--- NOTE | 2020-07-01 14:25 | P.PN ---
Subjective Progress Note Date: 07/01/20 CHIEF COMPLAINT: Liver abscess HISTORY OF PRESENT ILLNESS: Patient denies any abdominal pain. Denies any nausea or vomiting. Reports having bowel movements. Patient is unable to have MRI of the liver completed because he is unable to fit in the MRI. Patient seen by interventional radiology and they are unable to drain the liver abscess. PHYSICAL EXAM: VITAL SIGNS: Reviewed. GENERAL: Well-developed in no acute distress. HEENT: No sclera icterus. Extraocular movements grossly intact. Moist buccal mucosa. Head is atraumatic, normocephalic. ABDOMEN: Soft. Distended. Obese. Nontender. NEUROLOGIC: Alert and oriented. Cranial nerves II through XII grossly intact. ASSESSMENT: 1. Liver abscess PLAN: -Recommend that patient follows up with Dr. Head out of [facility] for further evaluation of his liver abscess Physician [employer] note has been reviewed by physician. Signing provider agrees with the documented findings, assessment, and plan of care. Objective - Vital Signs Vital signs: Vital Signs Temp 98.0 F 07/01/20 11:58 Pulse 86 07/01/20 11:58 Resp 18 07/01/20 11:58 BP 114/78 07/01/20 11:58 Pulse Ox 99 07/01/20 11:58 Intake & Output 06/30/20 07/01/20 07/01/20 18:59 06:59 18:59 Intake Total 2246 590 0 Output Total 600 300 Balance 1646 290 0 Weight 130.9 kg Intake: IV 30 10 Invasive Line 1 30 10 Intake, IV Titration 100 Amount cefTRIAXone 2 gm In 100 Sodium Chloride 0.9% 50 ml @ 100 mls/hr IVPB Q24H [facility] Rx#:[id number] Oral [id number] 480 0 Output: Urine 600 300 Other: Voiding Method Urinal Urinal Urinal Self-Catheterization Self-Catheterization Self-Catheterization # Voids 500 1 - Labs CBC & Chem 7: 06/29/20 05:43 07/01/20 06:36 Labs: Abnormal Lab Results - Last 24 Hours (Table) 06/30/20 06/30/20 07/01/20 Range/Units 16:37 20:05 06:13 Potassium (3.5-5.1) mmol/L Chloride (98-107) mmol/L BUN (9-20) mg/dL Creatinine (0.66-1.25) mg/dL Glucose (74-99) mg/dL POC Glucose (mg/dL) 229 H 179 H 130 H (75-99) mg/dL 07/01/20 07/01/20 Range/Units 06:36 11:48 Potassium 5.3 H (3.5-5.1) mmol/L Chloride 111 H (98-107) mmol/L BUN 40 H (9-20) mg/dL Creatinine 2.59 H (0.66-1.25) mg/dL Glucose 149 H (74-99) mg/dL POC Glucose (mg/dL) 132 H (75-99) mg/dL Microbiology - Last 24 Hours (Table) 06/28/20 15:29 Blood Culture - Preliminary Blood No Growth after 48 hours
--- NOTE | 2020-07-01 14:59 | PN ---
PROGRESS NOTE DATE OF SERVICE: 07/01/2020 REASON FOR FOLLOWUP: E coli bacteremia secondary to urinary source. INTERVAL HISTORY: The patient is currently afebrile. The patient is breathing comfortably. The patient denies having any chest pain. No shortness of breath or cough. No nausea, nol vomiting. No abdominal pain, no diarrhea. PHYSICAL EXAMINATION: Blood pressure 114/78 with a pulse of 77, temperature 98, he is 99% on room air. General description is a middle-aged male, up in the room in no distress. RESPIRATORY SYSTEM: Unlabored breathing, clear to auscultation anteriorly. HEART: S1, S2. Regular rate and rhythm. ABDOMEN: Soft, no tenderness. LABS: Creatinine is down to 0.59. Blood culture repeat 06/28 is negative. DIAGNOSTIC IMPRESSION AND PLAN: 1. Patient with an E coli bacteremia secondary to urinary source in this patient di have recent past . 2. The patient clinically responding to the Rocephin to continue finish therapy with oral Cipro and close outpatient followup. 3. Liver abnormality. Will need repeat ultrasound in 4-6 weeks post discharge. Questions and concerns were answered. MMODL / IJN: [id number] /
[2020-07-01 16:16] VITALS: BP 107/71; TEMP 98.3
--- NOTE | 2020-07-03 08:07 | CDI ---
Documentation Clarification Form Date: 07/03/20 From: Aparna Walls Phone: If you have a question about this query, please contact Sharmila Barry, Registered Nurse Cardiac Telemetry at [phone] between 8am and 5pm. Admit Date: 06/26/20 Discharge Date: 07/01/20 Patient Name: KARLA BORJA Visit Number: [id number] ATTENTION: The Clinical Documentation Specialists (CDI) and [facility] Coding Staff appreciate your assistance in clarifying documentation. Please respond to the clarification below the line at the bottom and electronically sign. The CDI & [facility] Coding staff will review the response and follow-up if needed. Please note: Queries are made part of the Legal Health Record. If you have any questions, please contact the author of this message via ITS. Dear Dr. Yane Soto, Conflicting documentation has been found in the medical record: Per Dr Allen's consult on 06/27- chronic diastolic heart failrure Per Dr Lr's progress notes starting on 06/29-acute and chronic systolic CHF with ejection fraction of 35-40% He ordered IV Lasix 40 MG IV. Per your PB on 06/29 & 06/30- Systolic CHF EF 35-40% not in exacerbation History/Risk Factors: E coli sepsis w severe sepsis, ATN, absecss of liver, acidosis, cardiomyopathy, HTN, CKD stage III,morbid obesity, DM w CKD, Clinical Indicators: [id number] 06/26 CXR: No overt failure. No further CXRs performed Treatment: 06/29-IV Lasix 40 mg once In your opinion, what is the most clinically appropriate diagnosis for this patient? Acute on chronic systolic CHF-POA-N Chronic systolic CHF-POA-Y Other explanation of clinical findings Unable to determine (no explanation for clinical findings) Chronic systolic CHF-POA-Y MTDD
--- NOTE | 2020-07-17 00:57 | P.DS ---
Providers Date of admission: 06/26/20 14:02 Expected date of discharge: 07/01/20 Attending physician: Rafael Arias Consults: 06/26/20 14:03 Consult Physician Routine Consulting Provider: Wilson Lr Consult Reason/Comments: renal insufficency Do you want consulting provider notified?: Yes Consult Physician Urgent Consulting Provider: Zaid Young Consult Reason/Comments: dyspnea Do you want consulting provider notified?: Yes Consult Physician Urgent Consulting Provider: Rajendra Jimenez Consult Reason/Comments: post op, uti Do you want consulting provider notified?: Yes 06/26/20 14:28 Consult Physician Routine Consulting Provider: Samira Tam Consult Reason/Comments: chf Do you want consulting provider notified?: Yes 06/27/20 16:42 Consult Physician Routine Consulting Provider: Luna Damon Consult Reason/Comments: +blood cultures Do you want consulting provider notified?: Yes 06/29/20 10:41 Consult Physician Urgent Consulting Provider: Abisai Lopez Consult Reason/Comments: Hepatic abscess Do you want consulting provider notified?: Yes Primary care physician: [facility] Course: Mr. Grissom is a 65-year-old male with history of diabetes, hypertension, prostate disorder, obstructive sleep apnea syndrome maintained on CPAP/BiPAP. Patient was evaluated in 2016 by urology for elevated creatinine and bilateral hydronephrosis. Catheter drainage done and the patient developed significant improvement in his renal profile with creatinine down to 1.55. Patient continues to have difficulty voiding, and this was managed with an indwelling catheter initially, then he was switched later on to intermittent catheterization in 2017. Patient was treated with a combination of finasteride and tamsulosin but he continued to have persistently elevated postvoid residual. Considering the persistent urinary retention, patient underwent TURP . Postoperatively, the patient developed what seemed to be hypoxic and hypercapnic respiratory failure with pulmonary edema. Patient was eventually extubated . The patient was discharged home. The patient continued to undergo self- catheterization. He came into the hospital again not feeling well. He was having some increased shortness of breath. He was having no dizziness or lightheadedness or heart fluttering. No chest pain. In the ED, the patient had a d-dimer that was abnormal. He was given a VQ scan did came back of a low probability for pulmonary embolism. Chest exit showed no acute abnormalities. His creatinine came back elevated. His UA was abnormal and the gram negative bacillus was also cultured in his blood. He was started on IV Rocephin. The blood pressure is marginally low at this point in time. His creatinine is up to 3.88. EKG showing a normal sinus mechanism. His white cell count is at 14.8. Sodium is at 128. The CAT scan of the abdomen and pelvis was done and showed a large low-density mass in the superior right lobe of the liver suspicious for an underlying abscess formation in the liver. There is also bilateral perinephric edema, nonobstructive right renal calculus, marginal right periurethral erythema and there is also deformity of the urinary bladder as well as air bubbles intramural air. Bilateral pyelonephritis was also considered. Hospital course - He had an Echocardiogram sowing EF of 35- 40 % with global hypokinesis of the Left vetricle . Blood cultures positive for E. coli. Urine culture positive for E. coli and he was maintained of Ceftriaxone. Surgical services were asked to see the patient in consultation and MRI without contrast was ordered for evaluation of a liver abscess. But he could not fit into the MRI machine. So then we asked interventional radiology for percutaneous drainage of the liver abscess however it was not feasible related to limited access by gas and patient's body habitus. Intervention radiology was unable to drain the liver abscess, clinically patient denies any abdominal pain, no nausea or vomiting. No surgery planned at this time, renal profile slightly improved. He was cleared by Nephrology, Surgery, Urology, Pulmonary and ID services. He was advised to get a repeat US of the Liver in 2 weeks. DISCHARGE DIAGNOSIS Sepsis secondary to UTI due to E. coli Acute kidney injury-possibly secondary to above Systoilc CHF EF 35-40 % not in exacerbation Chronic kidney disease stage III History of recent TURP procedure Hyponatremia Mildly elevated troponins Hypertension Hyperlipidemia Type 2 diabetes mellitus Obstructive sleep apnea Coronary artery disease status post stenting Nicotine dependence remote history Obesity with BMI 42.8 Follow up: advised to follow up with his PCPin 2-3 days. Also discussed at length with him and his at bed side , about getting a repeat US of the Liver in 2 weeks. More than 35 mins spent for the discharge of the patient, with more than 50 % time spent for coordination and counselling. Patient Condition at Discharge: Fair Plan - Discharge Summary Discharge Rx Participant: No New Discharge Prescriptions: New RX: Ciprofloxacin HCl [Cipro] 500 mg PO BID 10 Days #20 tab Continue RX: Tamsulosin [Flomax] 0.4 mg PO BID RX: Aspirin 81 mg PO DAILY RX: Nitroglycerin Sl Tabs [Nitrostat] 0.4 mg SUBLINGUAL Q5M PRN #25 tab PRN Reason: Chest Pain RX: lisinopriL [Zestril] 2.5 mg PO DAILY RX: Finasteride [Proscar] 5 mg PO DAILY RX: Atorvastatin [Lipitor] 80 mg PO HS RX: diazePAM [Valium] 5 mg PO BID PRN #6 tab PRN Reason: Motion Sickness RX: glipiZIDE [Glucotrol] 10 mg PO AC-BRKFST RX: Pioglitazone [Actos] 30 mg PO DAILY RX: Ergocalciferol [Vitamin D2 (DRISDOL)] 50,000 unit PO Q30D RX: Empagliflozin/Linagliptin [Glyxambi 10 mg-5 mg Tablet] 1 tab PO DAILY Discharge Medication List RX: Aspirin 81 mg PO DAILY 08/29/16 [History] RX: Tamsulosin [Flomax] 0.4 mg PO BID 08/29/16 [History] RX: Nitroglycerin Sl Tabs [Nitrostat] 0.4 mg SUBLINGUAL Q5M PRN #25 tab 09/03/16 [Rx] RX: Atorvastatin [Lipitor] 80 mg PO HS 04/17/17 [History] RX: Finasteride [Proscar] 5 mg PO DAILY 04/17/17 [History] RX: lisinopriL [Zestril] 2.5 mg PO DAILY 04/17/17 [History] RX: diazePAM [Valium] 5 mg PO BID PRN #6 tab 04/20/17 [Rx] RX: Empagliflozin/Linagliptin [Glyxambi 10 mg-5 mg Tablet] 1 tab PO DAILY 06/05/20 [History] RX: Ergocalciferol [Vitamin D2 (DRISDOL)] 50,000 unit PO Q30D 06/05/20 [History] RX: Pioglitazone [Actos] 30 mg PO DAILY 06/05/20 [History] RX: glipiZIDE [Glucotrol] 10 mg PO AC-BRKFST 06/05/20 [History] RX: Ciprofloxacin HCl [Cipro] 500 mg PO BID 10 Days #20 tab 07/01/20 [Rx] Follow up Appointment(s)/Referral(s): Bird Alvarez DO [STAFF PHYSICIAN] - 1 Week (Office will call you with an appointment.) Shahla Kiser DO [Primary Care Provider] - 07/06/20 9:20 am Patient Instructions/Handouts: Urinary Tract Infection in Men (DC), Dyspnea (DC) Activity/Diet/Wound Care/Special Instructions: Abdominal Ultrasound in 2 weeks [phone]. Please call to make an appointment. Discharge Disposition: HOME SELF-CARE
[2020-07-20] MEDS ORDERED: ERGOCALCIFEROL 50,000 UNIT CAP PO SCH (09:00)
== END 2020-07-01 16:53 | disposition home or self-care (01) | DRG 871 ==
LOC: EC 11:17 → 3SCARD 14:02
PROVIDERS: ADMIT Hospitalist; ATTEND Hospitalist
PROC: 3E0234Z Introduction of Serum, Toxoid and Vaccine into Muscle, Percutaneous Approach (ICD-10-PCS; principal; 2020-06-26)
DX: A41.51 Sepsis due to Escherichia coli [E. coli] (principal); N17.0 Acute kidney failure with tubular necrosis; K75.0 Abscess of liver; E87.2 Acidosis; I42.9 Cardiomyopathy, unspecified; I13.0 Hypertensive heart and chronic kidney disease with heart failure and stage 1 through stage 4 chronic kidney disease, or unspecified chronic kidney disease; N13.8 Other obstructive and reflux uropathy; E87.1 Hypo-osmolality and hyponatremia; I50.22 Chronic systolic (congestive) heart failure; Z68.41 Body mass index [BMI] 40.0-44.9, adult; N39.0 Urinary tract infection, site not specified; E11.22 Type 2 diabetes mellitus with diabetic chronic kidney disease; R65.20 Severe sepsis without septic shock; N18.3 Chronic kidney disease, stage 3 (moderate); E66.01 Morbid (severe) obesity due to excess calories; E78.5 Hyperlipidemia, unspecified; Z23 Encounter for immunization; Z53.9 Procedure and treatment not carried out, unspecified reason; Z20.828 Contact with and (suspected) exposure to other viral communicable diseases; N20.0 Calculus of kidney; G47.33 Obstructive sleep apnea (adult) (pediatric); N40.1 Benign prostatic hyperplasia with lower urinary tract symptoms; R33.8 Other retention of urine; N39.498 Other specified urinary incontinence; R35.0 Frequency of micturition; R39.15 Urgency of urination; R39.14 Feeling of incomplete bladder emptying; G47.00 Insomnia, unspecified; I25.10 Atherosclerotic heart disease of native coronary artery without angina pectoris; M19.90 Unspecified osteoarthritis, unspecified site; R19.7 Diarrhea, unspecified; R79.89 Other specified abnormal findings of blood chemistry; Z79.82 Long term (current) use of aspirin; Z79.84 Long term (current) use of oral hypoglycemic drugs; Z79.899 Other long term (current) drug therapy; Z71.3 Dietary counseling and surveillance; Z87.891 Personal history of nicotine dependence; Z95.5 Presence of coronary angioplasty implant and graft; Z98.890 Other specified postprocedural states; Z87.39 Personal history of other diseases of the musculoskeletal system and connective tissue; Z90.79 Acquired absence of other genital organ(s); Z86.73 Personal history of transient ischemic attack (TIA), and cerebral infarction without residual deficits; Z89.021 Acquired absence of right finger(s); Z82.49 Family history of ischemic heart disease and other diseases of the circulatory system; Z83.3 Family history of diabetes mellitus; Z83.49 Family history of other endocrine, nutritional and metabolic diseases
CPT/HCPCS: 36415; 51798; 71046; 71250; 74176; 76705; 78582; 80048; 80053; 81001; 83605; 83735; 83880; 84484; 85025; 85379; 85610; 85730; 87040; 87077; 87086; 87186; 87324; 93005; 93306; 96372; 96374; 96375; 99291

== ENCOUNTER → 2020-07-15 | Outpatient (CLI) | payer BC ==
--- NOTE | 2020-07-15 23:09 | US ---
EXAMINATION TYPE: US abdomen complete DATE OF EXAM: 07/15/2020 COMPARISON: US 06/29/20 CT 06/26/20 CLINICAL HISTORY: K75.0 Abscess of liver. EXAM MEASUREMENTS: Liver Length: 19.3 cm Gallbladder Wall: 0.3 cm CBD: 0.6 cm Spleen: 12.2 cm Right Kidney: 13.2 x 4.9 x 4.9 cm Left Kidney: 10.6 x 5.9 x 5.7 cm Pancreas: obscured Liver: Dense; Fatty; Enlarged there is a 6.6 x 6.7 x 6.1 cm hypoechoic area with slightly irregular matthew which may reflect prior hepatic abscess. This is within the right lobe liver near the diaphrag m. This is smaller than the 2019. Gallbladder: Mobile, echogenic, non-shadowing debris Evidence for sonographic Gill's sign: No CBD: wnl Spleen: wnl Right Kidney: Miya enlarged Left Kidney: wnl Upper IVC: wnl Abd Aorta: Proximal obscured; mid and distal appear WNL as visualized IMPRESSION: 1. Hepatomegaly with fatty infiltration the liver. 2. Debris versus gravel within the gallbladder. 3. 6.6 cm abscess right lobe liver.
== END | disposition home or self-care (01) ==
LOC: RADUSWWP 12:08
PROVIDERS: ATTEND Family Medicine
DX: K76.0 Fatty (change of) liver, not elsewhere classified (principal); R16.0 Hepatomegaly, not elsewhere classified; L02.211 Cutaneous abscess of abdominal wall; K82.8 Other specified diseases of gallbladder
CPT/HCPCS: 76700

== ENCOUNTER → 2020-08-06 | Outpatient (CLI) | payer BC ==
--- NOTE | 2020-08-06 12:32 | US ---
EXAMINATION TYPE: US abdomen complete DATE OF EXAM: 08/06/2020 COMPARISON: NONE CLINICAL HISTORY: K75.0 Abscess of liver. known abscess on morbidly obese patient who is taking antib iotic to shrink the abscess EXAM MEASUREMENTS: Liver Length: 18.8 cm Gallbladder Wall: 0.2 cm CBD: 0.7 cm Spleen: 11.3 cm Right Kidney: 11.0 x 5.6 x 5.6 cm Left Kidney: 10.6 x 4.1 x 5.5 cm *very difficult to image due to habitus and bowel gas Pancreas: not seen Liver: enlarged, 10.6 x 8.6 x 7.4cm posterior lobe abscess seen Gallbladder: wnl Evidence for sonographic Gill's sign: no CBD: wnl Spleen: wnl Right Kidney: wnl Left Kidney: wnl Upper IVC: wnl Abd Aorta: limited views The intrahepatic portion of the IVC and proximal abdominal aorta are within normal limits. There is no evidence of cholelithiasis. Common bile duct is unremarkable. The visualized portions of the mcuhgh creas are homogenous. The spleen is unremarkable. Kidneys are symmetric and free of hydronephrosis. No renal lesions are seen. IMPRESSION: Hepatic enlarged, 10.6 x 8.6 x 7.4cm posterior lobe abscess seen
== END | disposition home or self-care (01) ==
LOC: RADUSWWP 10:50
PROVIDERS: ATTEND Family Medicine
DX: K75.0 Abscess of liver (principal)
CPT/HCPCS: 76700

== ENCOUNTER → 2021-07-10 | Outpatient (CLI) | payer MEDICARE ==
--- NOTE | 2021-07-10 09:16 | US ---
EXAMINATION TYPE: US kidneys/renal and bladder DATE OF EXAM: 07/10/2021 COMPARISON: Multiple US's. CLINICAL HISTORY: N13.30 Hydronephrosis. History of TURP. EXAM MEASUREMENTS: Right Kidney: 13.2 x 5.8 x 6.9 cm Left Kidney: 11.3 x 4.6 x 5.2 cm Right Kidney: No hydronephrosis or masses seen Left Kidney: No hydronephrosis or masses seen Bladder: wnl Bilateral Jets seen: No There is no evidence for hydronephrosis at this point in time. No nephrolithiasis is seen. No adam s are identified. The urinary bladder is anechoic. IMPRESSION: Normal sonographic appearance of the bilateral kidneys and bladder.
== END | disposition home or self-care (01) ==
LOC: RADUSWWP 08:40
PROVIDERS: ATTEND Urology
DX: N13.30 Unspecified hydronephrosis (principal)
CPT/HCPCS: 76770